=== PATIENT | male | born 1950 | race Caucasian/White ===

== ENCOUNTER 2019-06-29 07:10 | Outpatient (CLI) | payer MEDICARE, SELFPAY ==
--- NOTE | ~2019-06-29 | US_ITS ---
EXAMINATION: US carotid duplex BI DATE: 06/29/2019 08:38 INDICATION: Bilateral carotid bruits TECHNIQUE: Grayscale, color Doppler, and pulsed Doppler images of the cervical carotid arteries were obtained. The degree of vessel stenosis is placed in one of the following categories: normal, <50%, 5 0-69%, >=70% but less than near-occlusion, near-occlusion, or total occlusion. Note that percent sten osis relative to normal distal artery lumen diameter is indirectly measured from velocity measurement s as described by You, et al. Radiology 2003; 229:340-346. COMPARISON: 11/27/2018 FINDINGS: RIGHT: The right common carotid artery (CCA) peak systolic velocity (PSV) is 122 cm/s. The right internal ca rotid artery (ICA) PSV is 96 cm/s. The right ICA end-diastolic velocity (EDV) is 17 cm/s. The right I CA/CCA PSV ratio is 0.8. Grayscale and color Doppler images yield an estimate of <50% diameter reduct ion from plaque in the ICA. The external carotid artery (ECA) PSV is 111 cm/s. There is antegrade harman w in the right vertebral artery. LEFT: The left CCA PSV is 68 cm/s. The left ICA PSV is 93 cm/s. The left ICA EDV is 31 cm/s. The left ICA/C CA PSV ratio is 1.4. Grayscale and color Doppler images yield an estimate of <50% diameter reduction from plaque in the ICA. The ECA PSV is 99 cm/s. There is antegrade flow in the left vertebral artery. IMPRESSION: 1. <50% stenosis in the right internal carotid artery. 2. <50% stenosis in the left internal carotid artery. 3. Cardiac arrhythmia is present. Correlate with EKG. Reviewed, dictated and finalized at location A.
== END 2019-06-29 07:11 | disposition home or self-care (01) ==
PROVIDERS: PCP Family Medicine; Visit Provider Internal Medicine Cardiovascular Disease
DX: R09.89 Other specified symptoms and signs involving the circulatory and respiratory systems (principal); I65.23 Occlusion and stenosis of bilateral carotid arteries; I49.9 Cardiac arrhythmia, unspecified
CPT/HCPCS: 93880

== ENCOUNTER 2019-09-07 08:25 | Outpatient (CLI) | payer MEDICARE, SELFPAY ==
--- NOTE | ~2019-09-07 | CT_ITS ---
EXAMINATION: CT abdomen pelvis w con DATE: 09/07/2019 08:53 INDICATION: Left lower quadrant abdominal pain TECHNIQUE: Computed tomography (CT) of the abdomen and pelvis was performed with 100 mL Omnipaque-350 intravenous contrast. Automated exposure control and iterative reconstruction technique were employe d. The dose-length product was 845.58 mGy-cm. COMPARISON: None FINDINGS: Lung bases are clear. Heart size is normal. No pericardial or pleural effusion. Atherosclerotic coron kathryn artery calcifications. Median sternotomy which may be related to prior coronary artery bypass gra fting. Dense calcification along the aortic valve. Liver, gallbladder, spleen, left kidney and bilate ral adrenal glands are normal. 4 mm low-attenuation likely cyst which is too small to definitively ch aracterize at the lower pole of the right kidney. 2.3 cm centrally cystic lesion at the tail of the p ancreas with nonuniform density wall in places measuring up to 6 mm in thickness. Remainder of the pa ncreas is normal. There is marked diffuse colonic diverticulosis without adjacent inflammatory change to suggest diverticulitis. Normal appendix. 1 cm fat attenuation nodule within the lumen of the thir d portion of the duodenum which could represent either ingested material or small lipoma. Bladder is normal. Prostatomegaly. No free intraperitoneal gas or fluid. No pathologically enlarged abdominal or pelvic lymphadenopathy. There is calcified atherosclerosis of the aorta and many of the other arteri es. Mild lumbar dextrocurvature and 4 mm anterolisthesis L4 on L5. Moderate thoracolumbar spondylosis IMPRESSION: 1. 2.3 cm complex cystic lesion at the tail of the pancreas with thickened enhancing wall which is co ncerning for neoplasm. The differential diagnosis includes pseudocyst, intraductal papillary mucinous neoplasm (IPMN), mucinous cystic neoplasm (MCN), serous cystadenoma, neuroendocrine tumor and cystic degeneration of adenocarcinoma. Correlate for history of pancreatitis and would recommend further ev aluation with pancreatic protocol pre and postcontrast MRI. Dr. Coles discussed these findings wit juan daniel Pappas at 2:22 PM. 2. Extensive diverticulosis. 3. Prostatomegaly. Reviewed, dictated and finalized at location A. IMPRESSION: 1. 2.3 cm complex cystic lesion at the tail of the pancreas with thickened enha ncing wall which is concerning for neoplasm. The differential diagnosis include s pseudocyst, intraductal papillary mucinous neoplasm (IPMN), mucinous cystic n eoplasm (MCN), serous cystadenoma, neuroendocrine tumor and cystic degeneration of adenocarcinoma. Correlate for history of pancreatitis and would recommend f urther evaluation with pancreatic protocol pre and postcontrast MRI. Dr. Celaya rt discussed these findings with GRICEL Pappas at 2:22 PM. 2. Extensive diverticulosis. 3. Prostatomegaly.
[2019-09-07 08:46] LABS: Estimated Glomerular Filt Rate 55
== END 2019-09-07 08:26 | disposition home or self-care (01) ==
LOC: ANHIMG 08:29
PROVIDERS: PCP Family Medicine; Visit Provider Physician Assistant
DX: K57.30 Diverticulosis of large intestine without perforation or abscess without bleeding (principal); N40.0 Benign prostatic hyperplasia without lower urinary tract symptoms; K86.2 Cyst of pancreas
CPT/HCPCS: 36415; 74177; Q9967

== ENCOUNTER 2019-09-25 09:38 | Outpatient (CLI) | payer MEDICARE, SELFPAY ==
--- NOTE | ~2019-09-25 | MR_ITS ---
EXAMINATION: MR abdomen wo/w con INDICATION: Left upper quadrant pain, cystic pancreatic lesion on recent CT TECHNIQUE: Coronal SSFSE ARC, WATER:coronal LAVA-FLEX, Coronal 2D FIESTA FatSat, Axial SSFSE BH ARC, Axial 3D DualEcho BH, Axial SSFSE-IR, Axial DWI b=500, Axial 2D FIESTA FatSat, pre and dynamic postco ntrast Axial LAVA ARC, postcontrast Coronal In and Opposed phase LAVA FLEX COMPARISON: CT, 09/07/2019 CONTRAST: Multihance, 19 cc FINDINGS: The heart size is normal. The liver, spleen, gallbladder, and adrenal glands are normal. Th e kidneys are unremarkable. There is a 2.3 x 1.9 cm T1 hypointense, T2 hyperintense lesion in the sarthak l of the pancreas which demonstrate wall thickening with wall enhancement on postcontrast images. Com munication with the pancreatic duct is indeterminate. Pancreatic duct is normal in course and caliber . No definite associated restricted diffusion is identified. There are no pathologically enlarged abd ominal lymph nodes. No dilated loops of bowel are evident. IMPRESSION: 1. Cystic lesion of the pancreatic tail with differential as previously described. Given the lesion s ize and indeterminate relationship with the main pancreatic duct, recommend either six month follow-u p MRI without and with contrast or EUS/FNA. Reviewed, dictated and finalized at location B. IMPRESSION: 1. Cystic lesion of the pancreatic tail with differential as previously describ ed. Given the lesion size and indeterminate relationship with the main pancreat ic duct, recommend either six month follow-up MRI without and with contrast or EUS/FNA.
== END 2019-09-25 09:39 | disposition home or self-care (01) ==
LOC: ANHIMG 09:39
PROVIDERS: PCP Family Medicine; Visit Provider Physician Assistant
DX: K86.9 Disease of pancreas, unspecified (principal)
CPT/HCPCS: 74183; A9577

== ENCOUNTER 2022-03-03 10:12 | Outpatient (CLI) | payer MEDICARE, SELFPAY ==
[2022-03-03 10:40] LABS: Alanine Aminotransferase 29 U/L (6-50); Albumin Level 4.5 g/dL (3.5-5.1); Alkaline Phosphatase 104 U/L (38-126); Anion Gap 8 mmol/L (8-16); Aspartate Amino Transferase 39 U/L (17-59); Bilirubin,Total 0.8 mg/dL (0.2-1.3); Blood Urea Nitrogen 19 mg/dL (9-20); Calcium 9.1 mg/dL (8.4-10.2); Carbon Dioxide 27 mmol/L (22-30); Chloride 101 mmol/L (98-107); Estimated Glomerular Filt Rate > 60; Glucose 172 mg/dL (65-110); Potassium 4.2 mmol/L (3.4-5.0); Sodium 136 mmol/L (137-145)
== END 2022-03-03 10:13 | disposition home or self-care (01) ==
PROVIDERS: PCP Family Medicine; Visit Provider Internal Medicine Cardiovascular Disease
DX: I48.91 Unspecified atrial fibrillation (principal)
CPT/HCPCS: 36415; 80053; 84443

== ENCOUNTER 2022-04-24 12:35 | Outpatient (CLI) | payer MEDICARE, SELFPAY ==
--- NOTE | ~2022-04-24 | MR_ITS ---
EXAMINATION: MR brain/brain stem wo/w con DATE: 04/24/2022 13:33 INDICATION: Right lower extremity weakness. TECHNIQUE: Magnetic resonance imaging (MRI) of the brain and brainstem was performed without and with 17 mL MultiHance intravenous contrast. COMPARISON: Head CT 07/14/2010 FINDINGS: There is an acute infarct in the right frontoparietal region. There are scattered areas of nonspecific increased T2-weighted signal intensity in the cerebral white matter, which is within norm al limits for the patient's age. Overlying the left frontoparietal region, there is a 5.1 x 0.9 x 5.2 cm expansile lytic lesion in the skull, which measured 4.9 x 0.8 x 4.4 cm on 07/14/10. The mass is no nenhancing and demonstrates markedly increased T2-weighted signal intensity without complete suppress ion on FLAIR images. There is no intracranial hemorrhage. The ventricles are normal. The orbits are n ormal. There is mild mucosal thickening in left maxillary sinus. The mastoid air cells are normal. IMPRESSION: 1. Acute infarct in the right frontoparietal region. 2. Expansile lytic lesion in the left frontoparietal skull, stable from 07/14/2010, which may be an in tradiploic epidermoid cyst. Reviewed, dictated and finalized at location A. ARINE MAKER IMPRESSION: 1. Acute infarct in the right frontoparietal region. 2. 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
== END 2022-04-24 12:36 | disposition home or self-care (01) ==
PROVIDERS: PCP Family Medicine; Visit Provider Student in an Organized Health Care Education/Training Program
DX: R29.898 Other symptoms and signs involving the musculoskeletal system (principal)
CPT/HCPCS: 70553; A9577

== ENCOUNTER 2022-05-26 09:42 | Outpatient (CLI) | payer MEDICARE, SELFPAY ==
--- NOTE | 2022-05-26 11:00 | NEURO_ITS ---
Impression: Patient reports a history of bilateral hand shaking and right arm falling asleep. # Evidence of right ulnar neuropathy. # Normal needle/EMG exam. # Clinical correlation recommended. Motor Nerve Conduction Upper Extremities Median Nerve Conduction Velocity (m/sec) Terminal Latency (msec) Response Voltage(mV) Elbow-Wrist Wrist Elbow Wrist Right 52 3.0 4 5 Left 53 2.6 3 4 Ulnar Nerve Conduction Velocity (m/sec) Terminal Latency (msec) Response Voltage(mV) Above Elbow Below Elbow Wrist Above Elbow Below Elbow Wrist Right 46 47 2.3 5 5 7 Left 52 52 2.8 5 6 7 F-Wave Latency Median (ms) Ulnar (ms) Right 29.1 29.7 Left 29.6 30.1 Sensory Nerve Conduction Upper Extremities Median Nerve Stimulation Terminal Latency (msec) Wrist/Digit Response Voltage (uV) Wrist Right 3.3/3.6 19/28 Left 3.0/3.1 13/10 Ulnar Nerve Stimulation Terminal Latency (msec) Wrist/Digit Response Voltage (uV) Wrist Right 2.7 17 Left 2.8 20 Radial Nerve Terminal Latency (msec) Response Voltage(mV) Right 2.0 23 Left 1.9 10 Left Right Muscles Examined Fibrillation Fasciculation Scarcity Voltage Duration Left Right Left Right Left Right Left Right Left Right Deltoid Biceps X X Brachioradialis Triceps X X Pronator Teres X X Ext Indicis X X Ext Digitorum X X Abd Poll Brev X X 1st Dorsal Interosseus Abd Dig Min MTDD
== END 2022-05-26 09:43 | disposition home or self-care (01) ==
PROVIDERS: PCP Family Medicine; Visit Provider Student in an Organized Health Care Education/Training Program
DX: G56.00 Carpal tunnel syndrome, unspecified upper limb (principal); R94.131 Abnormal electromyogram [EMG]
CPT/HCPCS: 95886; 95911

== ENCOUNTER 2022-06-02 09:53 | Outpatient (CLI) | payer MEDICARE, SELFPAY ==
[2022-06-02 10:40] LABS: LDL Cholesterol Direct 45 mg/dL
== END 2022-06-02 09:54 | disposition home or self-care (01) ==
PROVIDERS: PCP Family Medicine; Visit Provider Student in an Organized Health Care Education/Training Program
DX: I63.9 Cerebral infarction, unspecified (principal)
CPT/HCPCS: 36415; 83036; 83721

== ENCOUNTER 2022-06-13 08:50 | Outpatient (CLI) | payer MEDICARE, SELFPAY ==
--- NOTE | ~2022-06-13 | MR_ITS ---
EXAMINATION: MRA brain wo con DATE: 06/13/2022 09:34 INDICATION: Stroke TECHNIQUE: Magnetic resonance angiography (MRA) of the brain was performed without intravenous contrast by the 3 D [id number] technique. COMPARISON: None. FINDINGS: There is normal flow related signal seen within the vertebral, basilar and internal carotid arteries. There is no proximal stenosis. There are no aneurysms identified. Both A1 and P1 segments are pat ent. The right A1 segment is significantly smaller both the left A1 segment and a patent anterior com municating artery. There is also a patent left posterior communicating artery. Flow in the cerebral a rteries is symmetric. IMPRESSION: 1. Normal anatomic variation to the [place] as detailed above. No hemodynamically significan t stenosis or aneurysm. Reviewed, dictated and finalized at location A. IMPRESSION: 1. Normal anatomic variation to the [place] as detailed above. No hemo dynamically significant stenosis or aneurysm.
== END 2022-06-13 08:51 | disposition home or self-care (01) ==
PROVIDERS: PCP Family Medicine; Visit Provider Student in an Organized Health Care Education/Training Program
DX: I63.9 Cerebral infarction, unspecified (principal)
CPT/HCPCS: 70544

== ENCOUNTER 2022-06-16 08:30 | Outpatient (RCR) | payer MEDICARE, SELFPAY ==
[2022-03-26 12:00] VITALS: PULSE 86
== END 2022-06-17 10:24 | disposition home or self-care (01) ==
LOC: ANHCPREHAB 08:30
PROVIDERS: PCP Family Medicine; Visit Provider Internal Medicine Cardiovascular Disease
DX: Z95.2 Presence of prosthetic heart valve (principal)
CPT/HCPCS: 93798

== ENCOUNTER 2022-06-29 09:37 | Outpatient (CLI) | payer MEDICARE, SELFPAY ==
--- NOTE | 2022-06-29 09:45 | ECHO_ITS ---
Patient Info Name: Chadd Rodriguez Age: 71 years : 1950 Gender: Male Ht: 69 in Wt: 192 lbs BSA: 2.08 m2 HR: 79 bpm BP: 125 / 90 mmHg Technical Quality: Fair Exam Date: 06/29/2022 9:59 AM Exam [facility] Patient Status: Outpatient Admit Date: 06/29/2022 Staff Ordering Physician: Anaya Bhatt MD Project Development Coordinator: Julieta Pearson RDCS Attending Provider: Anaya Bhatt MD Referring Physician: En Hagen MD; Exam Type: CA echo dop bubble study w con Study Info Indications I63.9 - CEREBRAL INFARCTION, UNSPECIFIED Contrast/Agitated Saline Contrast/Ag. Saline: Agitated Saline Amount: 4.00 ml Administered By: Julieta Pearson RDCS New IV Access: Dorsum of Hand and Right Site Condition: No extravasation, Site dressing applied and IV removed Contrast/Ag. Saline: Agitated Saline Amount: 20.00 ml Administered By: Sabiha Collins RDCS Existing IV Access: Yes Summary 1. Left ventricular chamber dimension is normal. 2. Left ventricular systolic function is mildly reduced, estimated at 45-50%. 3. There is moderately increased left ventricular wall thickness. 4. Left ventricular septal wall motion is abnormal with septal motion related to bundle branch block. 5. Right ventricular systolic function is normal. 6. Intact interatrial septum visualized by color flow and agitated saline imaging. Negative bubble study. 7. Well seated TAVR valve. Mean gradient 7mmHg. No aortic regurgitation. 8. The mitral valve has thickened leaflets. 9. The mitral valve annulus is mildly calcified. 10. There is trace mitral valve regurgitation. 11. There is trace tricuspid valve regurgitation. Left Ventricle Left ventricular chamber dimension is normal. Left ventricular systolic function is mildly reduced, estimated at 45-50%. There is moderately increased left ventricular wall thickness. Left ventricular septal wall motion is abnormal with septal motion related to bundle branch block. Right Ventricle Right ventricular chamber dimension is normal. Right ventricular systolic function is normal. Left Atria Left atrial chamber dimension is normal. Right Atria Right atrial chamber dimension is normal. Atrial Septum Intact interatrial septum visualized by color flow and agitated saline imaging. Negative bubble study. Aortic Valve Well seated TAVR valve. Mean gradient 7mmHg. No aortic regurgitation. Pulmonic Valve The pulmonic valve is not well visualized. Mitral Valve The mitral valve has thickened leaflets. There is trace mitral valve regurgitation. The mitral valve annulus is mildly calcified. Tricuspid Valve There is trace tricuspid valve regurgitation. Pericardium/Pleural There is no pericardial effusion. Inferior Vena Cava Normal inferior vena cava with >50% collapse upon inspiration consistent with normal right atrial pressure, 3 mmHg. Aorta The aortic root size at the sinus of Valsalva is normal. Left Ventricular Outflow Tract Name Value Normal LVOT 2D LVOT Diameter 2.0 cm LVOT Doppler LVOT Peak Gradient 4 mmHg LVOT Mean Gradient 3 mmHg
--- NOTE | 2022-06-29 09:50 | ECG_ITS ---
Measurements Intervals [place] Rate: 84 P: HI: 0 QRS: -54 QRSD: 164 T: -14 QT: 441 QTc: 524 Interpretive Statements ATRIAL FLUTTER/TACHYCARDIA RIGHT BUNDLE BRANCH BLOCK LEFT ANTERIOR FASCICULAR BLOCK VOLTAGE CRITERIA FOR LVH BASELINE ARTIFACT- I, II, III, AVR, AVL, AVF ABNORMAL ECG NO PREVIOUS ECG AVAILABLE FOR COMPARISON Electronically Signed On 06-29-2022 11:23:41 CDT by Philip Zheng D.O.
[2022-06-29] MEDS: PERFLUTREN LIPID MICROSPHERES 1.5 ML VIAL DILUTED TO 10 ML TOTAL VOLUME IV PUSH (11:00)
== END 2022-06-29 09:38 | disposition home or self-care (01) ==
PROVIDERS: PCP Family Medicine; Referring Provider Internal Medicine Cardiovascular Disease; Visit Provider Student in an Organized Health Care Education/Training Program
DX: I63.9 Cerebral infarction, unspecified (principal); I45.10 Unspecified right bundle-branch block; I44.4 Left anterior fascicular block
CPT/HCPCS: 93005; 96375; C8929; Q9957

== ENCOUNTER 2022-08-10 10:16 | Outpatient (CLI) | payer MEDICARE, SELFPAY ==
[2022-08-10 10:44] LABS: Alanine Aminotransferase 70 U/L (6-50); Albumin Level 3.9 g/dL (3.5-5.1); Alkaline Phosphatase 114 U/L (38-126); Anion Gap 7 mmol/L (8-16); Aspartate Amino Transferase 66 U/L (17-59); Bilirubin,Total 0.7 mg/dL (0.2-1.3); Blood Urea Nitrogen 21 mg/dL (9-20); Calcium 8.6 mg/dL (8.4-10.2); Carbon Dioxide 31 mmol/L (22-30); Chloride 100 mmol/L (98-107); Estimated Glomerular Filt Rate > 60; Glucose 170 mg/dL (65-110); Potassium 4.4 mmol/L (3.4-5.0); Sodium 138 mmol/L (137-145)
== END 2022-08-10 10:17 | disposition home or self-care (01) ==
PROVIDERS: PCP Family Medicine; Visit Provider Physician Assistant
DX: E87.5 Hyperkalemia (principal)
CPT/HCPCS: 36415; 80053

== ENCOUNTER 2022-08-23 13:47 | Outpatient (CLI) | payer MEDICARE, SELFPAY ==
--- NOTE | 2022-08-23 15:42 | WPDPFTINT ---
PFT Procedure Performed PFT Procedure Performed Plethysmography (Lung Vol) Diffusing Cap (DLCO) Flow Vol Loop Spirometry w/o Bronchodil PFT Interpretation This is a pulmonary function test with spirometry, plethysmography and diffusing capacity. The test was performed and results interpreted in accordance with the 2019 and 2005 ATS/ERS Task Force guidelines respectively using the Global Lung Function Initiative-2012 reference equations. Patient demonstrated good effort and cooperation. Reproducibility criteria were met. The quality of the spirometry maneuver was Grade A. Findings: Spirometry: The contour the inspiratory and expiratory flow tracing are normal. FVC is 3.32 L, 83% predicted. The FEV1 is 2.70 L, 90% predicted. The FEV1: FVC ratio is 81%. Plethysmography: The total lung capacity is 5.98 L, 88% predicted. The functional residual capacity is 3.03 L, 83% predicted. The residual volume is 2.66 L, 108% predicted. Diffusion capacity: The diffusing capacity unadjusted for hemoglobin and carboxyhemoglobin is 22.9, 91% predicted. Diffusing capacity adjusted for alveolar volume is 4.52, 116% predicted. Impression: The spirometry is normal without evidence of an obstructive abnormality. The lung volumes are normal. The diffusing capacity is normal. There are no prior studies for comparison
== END 2022-08-23 13:48 | disposition home or self-care (01) ==
PROVIDERS: PCP Family Medicine; Visit Provider Internal Medicine Cardiovascular Disease
DX: Z79.899 Other long term (current) drug therapy (principal)
CPT/HCPCS: 94375; 94726; 94729

== ENCOUNTER 2022-12-06 20:17 | Emergency (ER) | payer MEDICARE, SELFPAY ==
[2022-12-06] VITALS (18 sets, daily range): BP systolic 129–172; BP diastolic 69–88; PULSE 42–94; RESP 12–22; TEMP 36.3–36.5; O2SAT 96–99
--- NOTE | ~2022-12-06 | XR_ITS ---
EXAMINATION: XR chest 1V portable Exam Date/Time: 12/06/2022 20:29 CDT HISTORY: syncope/HX OF CHF Comparison: 09/22/2015. RESULT: Lines, tubes, and devices: Valve replacement. Intact sternotomy wires. Lungs and pleura: Clear. Cardiomediastinal silhouette: Stable. Other: No acute osseous or upper abdominal finding. IMPRESSION: No acute cardiopulmonary process. Reviewed, dictated and finalized at location K.
--- NOTE | 2022-12-06 20:22 | ECG_ITS ---
Measurements Intervals [place] Rate: 48 P: NE: 0 QRS: -45 QRSD: 152 T: -25 QT: 480 QTc: 432 Interpretive Statements ATRIAL FLUTTER/TACHYCARDIA WITH SLOW VENTRICULAR RESPONSE LEFT AXIS DEVIATION [QRS AXIS < -30] RIGHT BUNDLE BRANCH BLOCK [120+ ms QRS DURATION, UPRIGHT V1, 40+ ms S IN I/aVL/V4/V5/V6] VOLTAGE CRITERIA FOR LVH [MEETS CRITERIA IN ONE OF: R(aVL), S(V1), R(V5), R(V5/V6)+S(V1)] ABNORMAL ECG Electronically Signed On 12-08-2022 10:26:16 CDT by Nolan Baxter M.D.
[2022-12-06] MEDS: LACTATED RINGERS 1,000 ML 999 ML IV CONT (20:25)
--- NOTE | 2022-12-06 20:28 | ED.SYNCOPE ---
HPI - Syncope General Chief Complaint: Syncope Stated Complaint: Syncope Time Seen by Provider: 12/06/22 20:20 Source: patient Mode of arrival: EMS Limitations: no limitations History of Present Illness HPI narrative: 72 year old male arrives to the Emergency Department via EMS. Patient states he was watching his grandchildren today and felt like maybe his blood sugar was low. States went to kitchen and had a syncopal episode. Denies any chest pain, shortness of breath or palpitations associated with. States again tonight he was feeling like maybe his blood sugar was low. He experienced near syncope. Again, he had no chest pain, shortness of breath or palpitations. He has no headache. He states he has a lot of nausea and vomiting since starting Ozempic a month ago. He has a history of chronic atrial fib /flutter. He takes Diltiazem and Metoprolol. He takes metformin, jardiance, Ozempic, Novalog and Lantus insulins. He is on eliquis. 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) -: second(s) Prodromal symptoms: lightheaded Injuries sustained associated with event: none Current symptoms: other (shaky) History: other (aortic valve replacement, atrial fib/flutter) Treatments prior to arrival: none Related Data Home Medications Medication Instructions Recorded Confirmed aspirin 81 mg tablet,delayed 81 mg PO DAILY 03/15/19 12/06/22 release (Aspir-) ezetimibe 10 mg tablet (Zetia) 10 mg PO DAILY 03/15/19 12/06/22 uabbrtgy-mqxvgamq-dngqd acid 400 1 tablet PO DAILY 12/26/19 12/06/22 mcg-vit K 20 mcg-lycop 300 mcg tablet (One-A-Day Men's Multivitamin) cholecalciferol (vitamin D3) 50 50 mcg PO DAILY 08/28/20 12/06/22 mcg (2,000 unit) capsule (D3-2000) docusate sodium 100 mg capsule 100 mg PO DAILY 08/28/20 12/06/22 (Colace) mecobalamin (vitamin B12) 1,000 1,000 mcg PO DAILY 08/28/20 12/06/22 mcg chewable tablet (B12 Active) metoprolol succinate 100 mg 100 mg PO DAILY 07/29/22 12/06/22 tablet,extended release 24 hr (Toprol XL) apixaban 5 mg tablet (Eliquis) 10 mg PO BID 09/29/22 12/06/22 atorvastatin 80 mg tablet (Lipitor) See Rx Instructions .Route .COMPLEX 12/06/22 12/06/22 diltiazem HCl 180 mg capsule,24 360 mg PO DAILY 12/06/22 12/06/22 hr,extended release insulin glargine 100 unit/mL (3 22 unit subcut QPM 12/06/22 12/06/22 mL) subcutaneous pen (Lantus Solostar U-100 Insulin) sertraline 25 mg tablet (Zoloft) See Rx Instructions .Route .COMPLEX 12/06/22 12/06/22 Allergies Allergy/AdvReac Type Severity Reaction Status Date / Time contrast dye AdvReac Unknown Nausea Uncoded 12/06/22 21:10 Review of Systems Review of Systems: All systems reviewed & are unremarkable except as noted in HPI and below Constitutional: Constitutional: Reports as per HPI, Denies chills, Denies fever(s) and Reports weakness Eyes: Eyes: Reports as per HPI and Denies change in vision ENT: Reports system reviewed and no additional complaints, except as documented Cardiovascular: Cardiovascular: Reports as per HPI, Denies chest pain and Denies rapid heart rate Respiratory: Respiratory: Reports as per HPI, Denies cough and Denies dyspnea Gastrointestinal: Gastrointestinal: Reports as per HPI, Denies abdominal pain, Reports diarrhea, Reports nausea and Reports vomiting Genitourinary: Genitourinary: Reports no additional male genitourinary complaints, Denies dysuria and Denies urinary frequency Musculoskeletal: Musculoskeletal: Reports no additional musculoskeletal complaints Integumentary/Breasts: Skin/Breast: Reports system reviewed and no additional complaints, except as docu Neurologic: Reports system reviewed and no additional complaints, except as documented, Denies confusion, Reports syncope, Denies headache(s), Denies focal weakness, Denies numbness and Denies weakness Comments: feels shaky Psychiatric: Psychiatric: Reports no additional psych
[2022-12-06 20:37] LABS: Basophils Absolute Auto 0.06 K/mm3 (0.00-0.10); Basophils Percent Auto 0.5 % (0.0-1.0); Eosinophils Absolute Auto 0.18 K/mm3 (0.02-0.50); Eosinophils Percent Auto 1.4 % (1.0-6.0); Hematocrit 43.7 % (37.0-46.0); Hemoglobin 14.1 g/dL (12.4-15.3); Immature Granulocyte Absolute 0.06 K/mm3 (0.00-0.00); Immature Granulocyte Percent A 0.5 % (0.0-0.0); Lymphocytes Absolute Auto 4.49 K/mm3 (1.10-4.50); Lymphocytes Percent Auto 35.6 % (18.0-42.0); Mean Corpuscular HGB Conc 32.3 g/dL (32.0-36.0); Mean Corpuscular Hemoglobin 29.5 pg (27.0-31.0); Mean Corpuscular Volume 91.4 fL (78.0-102.0); Mean Platelet Volume 10.7 fl (8.7-11.0); Monocytes Absolute Auto 1.22 K/mm3 (0.10-0.90); Monocytes Percent Auto 9.7 % (2.0-11.0); Neutrophils Absolute Auto 6.6 K/mm3 (1.7-7.2); Neutrophils Percent Auto 52.3 % (50.0-70.0); Platelet Count Result 361 K/mm3 (150-420); Red Blood Count 4.78 M/mm3 (4.70-6.10); Red Cell Distribution Width 16.5 % (11.6-14.4); White Blood Count 12.6 K/mm3 (4.8-10.8)
[2022-12-06 20:56] LABS: Alanine Aminotransferase 47 U/L (16-63); Albumin Level 3.2 g/dL (3.4-5.0); Alkaline Phosphatase 97 U/L (46-116); Anion Gap 12 mmol/L (8-16); Aspartate Amino Transferase 28 U/L (15-37); Bilirubin,Total 0.4 mg/dL (0.00-1.00); Blood Urea Nitrogen 18 mg/dL (7-18); Carbon Dioxide 26 mmol/L (21-32); Chloride 104 mmol/L (98-108); Estimated Glomerular Filt Rate > 60; Glucose 84 mg/dL (70-99); Magnesium 1.4 mg/dL (1.8-2.4); Osmolality Calculated 294 mOsm/kg (285-295); Potassium 5.1 mmol/L (3.5-5.1); Sodium 142 mmol/L (136-145); Total Protein 6.9 g/dL (6.4-8.2); Troponin I 14.3 ng/L (0.00-60.4)
[2022-12-06 20:58] LABS: Lactic Acid Reflex 3.9 mmol/L (0.4-2.0)
[2022-12-06 23:03] LABS: Appearance Urine Clear (Clear); Bilirubin Urine Negative (Negative); Blood Urine Negative (Negative); Color Urine Yellow (Yellow); Glucose Urine UA 3+ (Negative); Ketones Urine Negative (Negative); Leukocyte Esterase Ur Negative (Negative); Nitrate Urine Negative (Negative); Protein Urine Negative (Negative); pH Urine 7.5 (5.0-8.0)
[2022-12-06 23:08] LABS: Add Urine Microscopic? YES; Bacteria Urine Trace /hpf; RBC Urine 0-2 /hpf (0-2); Squamous Epithelial Cell Urine Occasional /hpf (Few); WBC Urine 0-3 /hpf (0-3)
[2022-12-06 23:09] LABS: Mucus Urine Rare /lpf
[2022-12-06 23:39] LABS: Reflex Lactic Acid Yes or No Add Lactic
== END 2022-12-06 23:23 | disposition short-term general hospital (02) ==
PROVIDERS: Emergency Provider Emergency Medicine; PCP Family Medicine
DX: R55 Syncope and collapse (principal); I48.20 Chronic atrial fibrillation, unspecified; I48.92 Unspecified atrial flutter; R74.02 Elevation of levels of lactic acid dehydrogenase [LDH]; I25.10 Atherosclerotic heart disease of native coronary artery without angina pectoris; I11.9 Hypertensive heart disease without heart failure; G47.33 Obstructive sleep apnea (adult) (pediatric); E78.00 Pure hypercholesterolemia, unspecified; E11.9 Type 2 diabetes mellitus without complications; Z95.4 Presence of other heart-valve replacement; Z86.73 Personal history of transient ischemic attack (TIA), and cerebral infarction without residual deficits; Z79.82 Long term (current) use of aspirin; Z79.01 Long term (current) use of anticoagulants; Z79.4 Long term (current) use of insulin; Z95.1 Presence of aortocoronary bypass graft; Z87.891 Personal history of nicotine dependence; Z79.85 Long-term (current) use of injectable non-insulin antidiabetic drugs; Z79.84 Long term (current) use of oral hypoglycemic drugs
CPT/HCPCS: 36415; 71045; 80053; 81001; 83605; 83735; 84484; 85025; 93005; 96360; 96361; 99285; J7120

== ENCOUNTER 2022-12-06 23:58 | Inpatient (IN) | payer MEDICARE, SELFPAY ==
--- NOTE | ~2022-12-06 | US_ITS ---
EXAMINATION: US carotid duplex BI DATE: 12/07/2022 10:47 INDICATION: Syncope. TECHNIQUE: Grayscale, color Doppler, and pulsed Doppler images of the cervical carotid arteries were obtained. The degree of vessel stenosis is placed in one of the following categories: normal, <50%, 5 0-69%, >=70% but less than near-occlusion, near-occlusion, or total occlusion. Note that percent sten osis relative to normal distal artery lumen diameter is indirectly measured from velocity measurement s as described by You, et al. Radiology 2003; 229:340-346. COMPARISON: Ultrasound 06/29/2019 FINDINGS: RIGHT: The right common carotid artery (CCA) peak systolic velocity (PSV) is 119 cm/s. The right internal ca rotid artery (ICA) PSV is 69 cm/s. The right ICA end-diastolic velocity (EDV) is 21 cm/s. The right I CA/CCA PSV ratio is 0.6. Grayscale and color Doppler images yield an estimate of <50% diameter reduct ion from plaque in the ICA. There is antegrade flow in the right vertebral artery. LEFT: The left CCA PSV is 68 cm/s. The left ICA PSV is 88 cm/s. The left ICA EDV is 27 cm/s. The left ICA/C CA PSV ratio is 1.3. Grayscale and color Doppler images yield an estimate of <50% diameter reduction from plaque in the ICA. There is antegrade flow in the left vertebral artery. IMPRESSION: 1. <50% stenosis in the right internal carotid artery. 2. <50% stenosis in the left internal carotid artery. Reviewed, dictated and finalized at location A.
--- NOTE | ~2022-12-06 | XR_ITS ---
EXAMINATION: XR chest 1V portable DATE: 12/13/2022 15:51 INDICATION: Pacer placement. TECHNIQUE: A single frontal view of the chest was obtained. COMPARISON: Chest single view 12/06/2022 FINDINGS: There is no pneumonia, pleural effusion, or pneumothorax. The heart size is normal. There a re changes of aortic valve replacement. Median sternotomy wires and mediastinal surgical clips are se en, likely from prior coronary artery bypass grafting. There is a left chest pacer with lead in right ventricle. IMPRESSION: 1. No acute cardiopulmonary disease. Reviewed, dictated and finalized at location E.
--- NOTE | ~2022-12-06 | XR_ITS ---
EXAMINATION: XR chest 2V DATE: 12/14/2022 15:28 INDICATION: Pacer placement. TECHNIQUE: Frontal and lateral views of the chest were obtained. COMPARISON: Chest single view 12/13/2022 FINDINGS: There is no pneumonia, pleural effusion, or pneumothorax. The heart size is normal. There a re changes of aortic valve replacement. Median sternotomy wires and mediastinal surgical clips are se en, likely from prior coronary artery bypass grafting. There is a left chest pacer with lead in right ventricle. IMPRESSION: 1. No acute cardiopulmonary disease. Reviewed, dictated and finalized at location E.
--- NOTE | ~2022-12-06 | US_ITS ---
EXAMINATION: US right upper quadrant DATE: 12/12/2022 08:25 INDICATION: Abnormal liver function tests. TECHNIQUE: Multiple grayscale and Doppler ultrasound images of the abdomen were obtained. COMPARISON: Abdomen MRI 09/25/2019 FINDINGS: The pancreas is obscured by bowel gas. The liver is normal without focal lesion. There is n ormal flow in main portal vein. The gallbladder is normal in size. No gallstones or gallbladder wall thickening. There was no sonographic Leo sign. The common duct is normal and measures 2 mm. Right kidney is normal. IMPRESSION: 1. Normal right upper quadrant ultrasound. Reviewed, dictated and finalized at location E.
--- NOTE | 2022-12-06 23:59 | PM.IMHP ---
H&P: HPI History of Present Illness Date/Time: 12/07/22 00:47 Chief Complaint: patient brought to the ER for evaluation by EMS after a syncopal episode Narrative: Very pleasant 72 years old white male with prior history of CAD and aortic valve replacement with chronic medical issues, was watching his grandchildren play earlier today and he felt like his blood sugar was low. He felt weak and tired, went to the kitchen and had a syncopal episode. He denies hitting his head. He denies any chest pain, shortness or breath or palpitations associated with that episode. Tonight again he was feeling like his blood sugar was low. He checked his blood sugar which was within normal range. He complains of nausea and vomiting since he started Ozempic a month ago for diabetes. Went to the ER for evaluation in [facility]. 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 Review of Systems Review of Systems: he denies any palpitations, fever rigor chills, loss of consciousness, abdominal pain or blurred vision All systems reviewed & are unremarkable except as noted in HPI and below PMFSH Past Medical History Medical History (Updated 12/07/22 @ 01:59 by Gerald Diallo MD) A-fib Arthralgia Atrial fibrillation/flutter Coronary artery disease involving [place] coronary artery of [place] heart Episode of syncope Hyperkalemia Hypertensive heart disease without congestive heart failure Insomnia LLQ abdominal pain Neuroendocrine tumor of pancreas Nonrheumatic aortic (valve) stenosis Obstructive sleep apnea, adult Pancreatic lesion Pure hypercholesterolemia Stroke Tinea cruris Tremor Type 2 diabetes mellitus with hyperglycemia Surgical History Surgical History H/O splenectomy History of partial pancreatectomy Hx of CABG S/P TAVR (transcatheter aortic valve replacement) 01/28/22 Family History Family History Sibling Family history of malignant neoplasm Family history of coronary artery disease Mother Family history of diabetes mellitus in first degree relative Father Family history of coronary artery disease Social History Social History Smoking packs per day: 0.5 Smoking cigarettes per day: 10.0 Years smoked: 1 Smoking pack-years: 0.50 Smoking status: Former smoker Tobacco type: cigarettes Second hand tobacco smoke exposure: Yes Smoking end date: 02/29/08 Alcohol intake: current Drinks per week: 1 Alcohol use details: likes a glass of wine Substance use: never Substance use type: does not use Lack of Transportation: No Lack of Food: Never True Current Housing: I Have Housing Concerned About Future Housing: No Difficulty Paying Gas/Electric Bills: No Difficulty Paying for Meds: No Currently Unemployed: No Education: Decline to Answer Difficulty w/ Childcare or Family Care: No Living arrangements: with family Occupation/Education: retired Gender identity (if verbalized by the patient): Male Sexual Orientation (if Verbalized by the Patient): Straight or Heterosexual Spiritual care concerns: No Meds Home Medications and Allergies Home Medications Medication Instructions Recorded Confirmed Type aspirin 81 mg tablet,delayed 81 mg PO DAILY 03/15/19 12/07/22 History release (Aspir-) ezetimibe 10 mg tablet (Zetia) 10 mg PO DAILY 03/15/19 12/07/22 History lancets 30 gauge (OneTouch Delica #100 ea 05/29/19 12/07/22 Rx Lancets) vkiaieme-sduaertt-xapoz acid 400 1 tablet PO DAILY 12/26/19 12/07/22 History mcg-vit K 20 mcg-lycop 300 mcg tablet (One-A-Day Men's Multivitamin) cholecalciferol (vitamin D3) 50 50 mcg PO DAILY 08/28/20 12/07/22 History mcg (2,000 unit) capsule (D3-1999)
[2022-12-07] VITALS (13 sets, daily range): BP systolic 122–145; BP diastolic 66–83; PULSE 40–97; RESP 12–20; TEMP 36–36.6; O2SAT 95–98; BMI 28.0
--- NOTE | 2022-12-07 | ECHO_ITS ---
Patient Info Name: Chadd Rodriguez Age: 72 years : 1950 Gender: Male Ht: 69 in Wt: 190 lbs BSA: 2.07 m2 HR: 86 bpm BP: 145 / 76 mmHg Heart Rhythm: Sinus Rhythm Technical Quality: Fair Exam Date: 12/07/2022 1:49 PM Exam Location: [facility] Patient Status: Outpatient Admit Date: 12/06/2022 Staff Ordering Physician: Smiley Rankin DO Midwife: Fannie Mccain RDCS Attending Provider: Gerald Diallo MD Referring Physician: Massiel FISHER; Exam Type: CA echo dop color flow w con Study Info Indications R55 - Syncope and collapse Complete two-dimensional, color flow and Doppler transthoracic echocardiogram is performed with contrast to opacify the left ventricle and to improve the deliniation of the left ventricle endocardial borders. Contrast/Agitated Saline Contrast/Ag. Saline: Definity Amount: 2.00 ml Administered By: Fannie Mccain RDCS Existing IV Access: Yes IV Access Condition: patent with no signs of infiltration Summary 1. Left ventricular systolic function is low normal, estimated at 50-55%. 2. Left ventricular chamber dimension is normal. 3. There is mildly increased left ventricular wall thickness. 4. The left ventricular diastolic function is normal. 5. Left atrial chamber dimension is mildly enlarged. 6. There is mild prosthetic aortic valve stenosis with a peak velocity of 208.97 cm/s, mean gradient of 10 mmHg, and aortic valve area of 1.26 cm2. 7. There is trace regurgitation of the prosthetic aortic valve. 8. The mitral valve annulus is mildly calcified. 9. The mitral valve has thickened leaflets. 10. There is mild tricuspid valve regurgitation. 11. There is mild pulmonic regurgitation. Left Ventricle Left ventricular systolic function is low normal, estimated at 50-55%. Left ventricular chamber dimension is normal. There is mildly increased left ventricular wall thickness. The left ventricular diastolic function is normal. Right Ventricle Right ventricular chamber dimension is normal. Right ventricular systolic function is normal. Left Atria Left atrial chamber dimension is mildly enlarged. Right Atria Right atrial chamber dimension is normal. Atrial Septum Intact interatrial septum visualized by color flow imaging. 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 There is trace regurgitation of the prosthetic aortic valve. Pulmonic Valve The pulmonic valve is normal. There is no pulmonic valve stenosis. There is mild pulmonic regurgitation. Mitral Valve The mitral valve has thickened leaflets. There is no mitral valve stenosis. There is trace mitral valve regurgitation. The mitral valve annulus is mildly calcified. Tricuspid Valve The tricuspid valve leaflets are normal. There is no significant tricuspid valve stenosis. There is mild tricuspid valve regurgitation. No pulmonary hypertension, estimated pulmonary arterial systolic pressure is 20 mmHg. Pericardium/Pleural The pericardium appears normal. There is no pericardial effusion. Inferior Vena Cava Normal inferior vena cava with >50% collapse upon inspiration consistent with normal right atrial pressure, 10 mmHg. Aorta The aortic root size at the sinus of Valsalva is normal. Left Ventricular Outflow Tract Name Value Normal
--- NOTE | 2022-12-07 00:30 | ADMGEN ---
0000: This patient, Chadd Rodriguez, was admitted to IMU Room 203-01. Patient/family oriented to hospital policies and general routines including ID bracelet, bed and alarms, visiting hours, pain management, procedures, bathroom and other care routines, personal items, smoking policy, room service/diet, and visiting hours. Information on how to activate the Rapid Response Team has been discussed. Patient/Family are encouraged to report perceived risks to care and to ask questions if they do not understand what they are told or what they should do.
[2022-12-07 00:38] LABS: Glucose Point of Care 152 mg/dl (65-105)
[2022-12-07] MEDS: SODIUM CHLORIDE 0.9% IV 1,000 ML 75 ML IV CONT (04:35)
[2022-12-07 05:28] LABS: Basophils Absolute Auto 0.1 K/mm3 (0.0-0.1); Basophils Percent Auto 0.5 % (0.2-1.2); Eosinophils Absolute Auto 0.1 K/mm3 (0-0.3); Eosinophils Percent Auto 1.2 % (0-4.4); Hematocrit 41.3 % (42.0-52.0); Hemoglobin 13.7 g/dL (14.0-18.0); Immature Granulocyte Absolute 0.06 K/mm3 (0.00-0.031); Immature Granulocyte Percent A 0.5 % (0-0.5); Lymphocytes Absolute Auto 3.84 K/mm3 (0.9-3.2); Lymphocytes Percent Auto 32.7 % (18.3-44.2); Mean Corpuscular HGB Conc 33.2 g/dl (32-36); Mean Corpuscular Hemoglobin 29.8 pg (26-34); Mean Platelet Volume 10.9 fl (7.4-10.4); Monocytes Absolute Auto 1.2 K/mm3 (0.1-0.6); Monocytes Percent Auto 10.2 % (2.6-8.5); Neutrophils Absolute Auto 6.4 K/mm3 (1.3-6.7); Neutrophils Percent Auto 54.9 % (45.5-73.1); Nucleated Red Blood Cells Perc 0.2 % (0.0-0.2); Platelet Count Result 331 k/mm3 (150-375); Red Blood Count 4.59 M/mm3 (4.6-6.20); Red Cell Distribution Width 16.5 % (11.5-14.5); White Blood Count 11.7 K/mm3 (4.5-10.0)
[2022-12-07 05:43] LABS: Anion Gap 4 mmol/L (8-16); Blood Urea Nitrogen 13 mg/dL (9-20); Calcium 8.5 mg/dL (8.4-10.2); Carbon Dioxide 30 mmol/L (22-30); Chloride 103 mmol/L (98-107); Estimated CRCL calculation 80 ml/min; Estimated Glomerular Filt Rate > 60; Glucose 111 mg/dL (65-110); Magnesium 1.5 mg/dL (1.6-2.3); Phosphorus 3.9 mg/dL (2.5-4.5); Potassium 4.2 mmol/L (3.4-5.0); Sodium 137 mmol/L (137-145)
[2022-12-07 05:53] LABS: Troponin I 0.017 ng/mL (0.000-0.034)
[2022-12-07 08:17] LABS: Glucose Point of Care 133 mg/dl (65-105)
--- NOTE | 2022-12-07 08:34 | PM.IMPN ---
Progress Note: A&P Assessment and Plan (1) Episode of syncope: Code(s): R55 - Syncope and collapse Status: Acute Assessment and Plan: Monitor telemetry, check TSH, B12 PT/OT Check orthostatics Check echo (2) Type 2 diabetes mellitus with hyperglycemia: Code(s): E11.65 - Type 2 diabetes mellitus with hyperglycemia Status: Acute Assessment and Plan: Accu-Cheks, sliding scale insulin, check A1c (3) Coronary artery disease involving [place] coronary artery of [place] heart: Code(s): I25.10 - Atherosclerotic heart disease of [place] coronary artery without angina pectoris Status: Acute Assessment and Plan: Continue home medications (4) S/P TAVR (transcatheter aortic valve replacement): Code(s): Z95.2 - Presence of prosthetic heart valve Status: Acute Assessment and Plan: Currently on Eliquis (5) A-fib: Code(s): I48.91 - Unspecified atrial fibrillation Status: Acute Assessment and Plan: Rate controlled, continue Eliquis (6) Hypomagnesemia: Code(s): E83.42 - Hypomagnesemia Status: Acute Assessment and Plan: Replete and recheck Plan DVT prophylaxis with eliquis GI prophylaxis not indicated Code status full code Subjective Date/time seen: 12/07/22 08:34 Interval history: 72-year-old male with history of heart disease, AFib monitor comorbidities presented with syncopal episode thought to be secondary to hypoglycemia. No overnight events noted. No chest pain or shortness of breath. No nausea, vomiting or diarrhea. No fevers or chills. Review of Systems Review of Systems: 12 point review of systems was assessed and was negative except as noted in the HPI Exam Narrative: General: No acute distress, alert and oriented per baseline HEENT: Atraumatic, normocephalic, mucous membranes moist CV: Regular rate and rhythm, S1, S2 Lungs: Clear to auscultation bilaterally, no rales or crackles noted, no wheezes, good air entry Abdomen: Soft, nontender, nondistended Extremities: Normal to inspection Skin: No rashes noted, no lesions or wounds seen Psych: Euthymic, normal affect Objective Data Vital Signs Vital Signs: Vital Signs - 24 hr 12/07/22 00:15 12/07/22 04:00 12/07/22 04:00 Temperature 97.4 F L 97.6 F Pulse Rate 97 88 88 Respiratory Rate 16 16 Blood Pressure 144/77 H 138/69 Pulse Oximetry 96 97 Oxygen Delivery 12/07/22 04:00 Temperature Pulse Rate Respiratory Rate Blood Pressure Pulse Oximetry Oxygen Delivery Room Air Meds/Results Medications: Active Medications Generic Name Dose Route Start Last Admin Trade Name Freq PRN Reason Stop Dose Admin Acetaminophen 650 mg 12/07/22 02:05 Acetaminophen 325 Mg Tablet PO Q4H PRN Mild Pain (1-3) or Fever Al Hydrox/Mg Hydrox/Simethicone 30 ml 12/07/22 02:05 Mag Hydrox/Al Hydrox/Simeth 30 Ml Udc PO QID PRN Dyspepsia Apixaban 10 mg 12/07/22 09:00 Apixaban 5 Mg Tablet PO Q12HR [facility] Aspirin 81 mg 12/07/22 09:00 Aspirin 81 Mg Enteric Tablet PO DAILY [facility] Atorvastatin Calcium 80 mg 12/07/22 21:00 Atorvastatin 40 Mg Tablet PO QHS [facility] Cyanocobalamin 1,000 mcg 12/07/22 09:00 Cyanocobalamin 1,000 Mcg Tablet PO 01/06/23 08:59 DAILY [facility] Dextrose 12.5 gm 12/07/22 02:13 Dextrose 50% 25 Gm/50 Ml Syringe IV PUSH PRN PRN Hypoglycemia Protocol Diltiazem HCl 360 mg 12/07/22 09:00 Diltiazem Hcl Cd 180 Mg Cap.24hr PO DAILY [facility] Docusate Sodium 100 mg 12/07/22 09:00 Docusate Sodium 100 Mg Capsule PO DAILY [facility] Ezetimibe 10 mg 12/07/22 09:00 Ezetimibe 10 Mg Tablet PO DAILY [facility] Empagliflozin 25 mg 12/07/22 09:00 Empagliflozin 25 Mg Tablet PO QAM [facility] Glucagon 1 mg 12/07/22 02:13 Glucagon For Inj 1 Mg Vial IM PRN PRN Hypoglycemia
[2022-12-07] MEDS: APIXABAN 5 MG TABLET 10 MG PO ×2 (09:46→20:54)
[2022-12-07] MEDS: dilTIAZem HCL CD 180 MG CAP.24HR 360 MG PO (09:46)
[2022-12-07] MEDS: DOCUSATE SODIUM 100 MG CAPSULE PO (09:46)
[2022-12-07] MEDS: METOPROLOL SUCCINATE EXT REL 100 MG TABCR PO (09:46)
[2022-12-07] MEDS: EMPAGLIFLOZIN 25 MG TABLET PO (09:46)
[2022-12-07] MEDS: MAGNESIUM SULF 2 GM/WATER 50ML 2 GM/50 ML BAG IVPB (09:46)
[2022-12-07] MEDS: THERAPEUTIC MULTIVITAMINS/MINERALS TAB (*BKC) 1 TABLET PO (09:46)
[2022-12-07] MEDS: INSULIN ASPART (*BKC) 100 UNITS/ML 8 UNITS SUB-Q ×2 (09:46→18:27)
[2022-12-07] MEDS: SERTRALINE HCL 25 MG TABLET PO (09:46)
[2022-12-07] MEDS: CYANOCOBALAMIN 1,000 MCG TABLET 1000 MCG PO (09:46)
[2022-12-07] MEDS: EZETIMIBE 10 MG TABLET PO (09:47)
[2022-12-07] MEDS: CHOLECALCIFEROL 1,000 UNITS TABLET 2000 UNITS PO (09:47)
[2022-12-07] MEDS: ASPIRIN 81 MG ENTERIC TABLET PO (09:47)
--- NOTE | 2022-12-07 11:15 | PM.CNCAR ---
Assessment and Plan Assessment and plan (1) Episode of syncope: Code(s): R55 - Syncope and collapse Status: Acute Assessment and Plan: He had one syncopal event yesterday afternoon. Etiology unclear. No high degree blocks, pauses, angela or tachyarrhythmias on telemetry thus far that would explain his syncope. He is in atrial flutter with controlled ventricular response. Blood pressure is stable. It looks like he had a set or orthostatic vitals checked yesterday and SBP had mild drop from 151mmHg to 138mmHg. Continue to monitor on telemetry. Echo has been ordered and will be reviewed. (2) Coronary artery disease involving [place] coronary artery of [place] heart: Code(s): I25.10 - Atherosclerotic heart disease of [place] coronary artery without angina pectoris Status: Acute Assessment and Plan: Stable. Continue ASA, statin (3) Atrial flutter: Code(s): I48.92 - Unspecified atrial flutter Status: Acute Assessment and Plan: Rate controlled. On eliquis for stroke prophylaxis. 10mg b.i.d. has been ordered which is not the appropriate dose for this indication - will reduce to 5mg b.i.d. unless there is some other indication for higher dose History of Present Illness History of Present Illness Consult date/time: 12/07/22 11:15 Requesting physician: Gerald Diallo MD Consult reason: Other (syncope) Reason For Visit: Syncope Narrative: Chadd Rodriguez is a 72-year-old man with coronary artery disease status post CABG x2 in 2015, aortic stenosis status post TAVR in 2021, and paroxysmal atrial fibrillation/flutter. He is admitted to the hospital now because of a syncopal event that occurred yesterday afternoon. He was babysitting his grandkids when he began to feel woozy. He states that he felt like his blood sugar was low as he has experienced this feeling before and has found his blood sugar to be in the 60s and 70s. He states that he stood up from the table to get something from the kitchen and briefly lost consciousness. He denies experiencing any chest pain, palpitations, or shortness of breath. He also notes that he began taking Ozempic about 7 weeks ago and has not been feeling very well -he has been nauseous, has no appetite, and is not drinking very many fluids. Review of Systems Review of Systems: All systems reviewed & are unremarkable except as noted in HPI and below PMFSH Past Medical History Medical History A-fib Arthralgia Atrial fibrillation/flutter Coronary artery disease involving [place] coronary artery of [place] heart Episode of syncope Hyperkalemia Hypertensive heart disease without congestive heart failure Insomnia LLQ abdominal pain Neuroendocrine tumor of pancreas Nonrheumatic aortic (valve) stenosis Obstructive sleep apnea, adult Pancreatic lesion Pure hypercholesterolemia Stroke Tinea cruris Tremor Type 2 diabetes mellitus with hyperglycemia Surgical History Surgical History H/O splenectomy History of partial pancreatectomy Hx of CABG S/P TAVR (transcatheter aortic valve replacement) 01/28/22 Family History Family History Sibling Family history of malignant neoplasm Family history of coronary artery disease Mother Family history of diabetes mellitus in first degree relative Father Family history of coronary artery disease Social History Social History Smoking packs per day: 0.5 Smoking cigarettes per day: 10.0 Years smoked: 1 Smoking pack-years: 0.50 Smoking status: Former smoker Tobacco type: cigarettes Second hand tobacco smoke exposure: Yes Smoking end date: 02/29/08 Alcohol intake: current Drinks per week: 1 Alcohol use details: likes a glass of wine Substance use: never Substance use
[2022-12-07 11:24] LABS: Troponin I 0.015 ng/mL (0.000-0.034)
[2022-12-07 12:01] LABS: Glucose Point of Care 138 mg/dl (65-105)
[2022-12-07] MEDS: INSULIN ASPART (*BKC) 100 UNITS/ML 6 UNITS SUB-Q (12:10)
[2022-12-07] MEDS: PERFLUTREN LIPID MICROSPHERES 1.5 ML VIAL DILUTED TO 10 ML TOTAL VOLUME IV PUSH (14:25)
--- NOTE | 2022-12-07 15:14 | PCPTNOTE ---
Attempted PT evaluation, pt refused stating he does not need therapy services at this time. RN aware and also reports pt is doing well with functional mobility.
--- NOTE | 2022-12-07 15:55 | PC.NURSE ---
Notified Jaelyn Castellanos that the patient has been having what the data warehouse analyst calls pauses. They last up to 2 seconds long and appear to be his atrial flutter waves with no QRS complex. Patient is asymptomatic with these episodes. Do not call cardiology unless the pauses are longer than 8 seconds.
--- NOTE | 2022-12-07 16:42 | IVDEFINITY ---
Prior to administration of IV Definity the patient was educated on the risks and benefits of the imaging enhancing agent including potential adverse side effects. The patient verbalized understanding. Allergies were verified. No exclusion criteria were identified and at least one of the following inclusion criteria were met: 1) physician request, 2) patient technically difficult to image (per the [place] [employer] guidelines of two or more segments not discernable within the apical view), or 3) questionable left ventricular function. ?
[2022-12-07 17:08] LABS: Glucose Point of Care 140 mg/dl (65-105)
[2022-12-07] MEDS: INSULIN GLARGINE (*BKC) 100 UNITS/ML 22 UNITS SUB-Q (18:26)
[2022-12-07 19:58] LABS: Glucose Point of Care 122 mg/dl (65-105)
[2022-12-07] MEDS: ATORVASTATIN 40 MG TABLET 80 MG PO (20:54)
[2022-12-08] VITALS (20 sets, daily range): BP systolic 126–145; BP diastolic 64–84; PULSE 53–110; RESP 12–18; TEMP 36.2–36.6; O2SAT 97–99
[2022-12-08 05:09] LABS: Basophils Absolute Auto 0.1 K/mm3 (0.0-0.1); Basophils Percent Auto 0.5 % (0.2-1.2); Eosinophils Absolute Auto 0.3 K/mm3 (0-0.3); Eosinophils Percent Auto 2.9 % (0-4.4); Hematocrit 43.2 % (42.0-52.0); Hemoglobin 14.2 g/dL (14.0-18.0); Immature Granulocyte Absolute 0.06 K/mm3 (0.00-0.031); Immature Granulocyte Percent A 0.5 % (0-0.5); Lymphocytes Absolute Auto 3.57 K/mm3 (0.9-3.2); Lymphocytes Percent Auto 32.4 % (18.3-44.2); Mean Corpuscular HGB Conc 32.9 g/dl (32-36); Mean Corpuscular Hemoglobin 29.6 pg (26-34); Mean Corpuscular Volume 90.2 fl (80-100); Mean Platelet Volume 11.5 fl (7.4-10.4); Monocytes Percent Auto 9.4 % (2.6-8.5); Neutrophils Percent Auto 54.3 % (45.5-73.1); Platelet Count Result 364 k/mm3 (150-375); Red Blood Count 4.79 M/mm3 (4.6-6.20); Red Cell Distribution Width 16.8 % (11.5-14.5)
[2022-12-08 05:24] LABS: Alanine Aminotransferase 57 U/L (6-50); Albumin Level 3.9 g/dL (3.5-5.1); Alkaline Phosphatase 91 U/L (38-126); Anion Gap 9 mmol/L (8-16); Aspartate Amino Transferase 68 U/L (17-59); Bilirubin,Total 0.8 mg/dL (0.2-1.3); Blood Urea Nitrogen 13 mg/dL (9-20); Calcium 8.8 mg/dL (8.4-10.2); Carbon Dioxide 25 mmol/L (22-30); Chloride 103 mmol/L (98-107); Estimated CRCL calculation 71 ml/min; Estimated Glomerular Filt Rate > 60; Glucose 122 mg/dL (65-110); Magnesium 1.8 mg/dL (1.6-2.3); Potassium 4.1 mmol/L (3.4-5.0); Sodium 137 mmol/L (137-145)
[2022-12-08 05:36] LABS: Troponin I 0.015 ng/mL (0.000-0.034)
[2022-12-08 06:32] LABS: Folic Acid 8.3 ng/mL (2.76->20); Vitamin B12 > 1000.0 pg/mL (239-931)
[2022-12-08 08:44] LABS: Glucose Point of Care 135 mg/dl (65-105)
[2022-12-08] MEDS: THERAPEUTIC MULTIVITAMINS/MINERALS TAB (*BKC) 1 TABLET PO (08:51)
[2022-12-08] MEDS: EZETIMIBE 10 MG TABLET PO (08:51)
[2022-12-08] MEDS: ASPIRIN 81 MG ENTERIC TABLET PO (08:51)
[2022-12-08] MEDS: EMPAGLIFLOZIN 25 MG TABLET PO (08:51)
[2022-12-08] MEDS: DOCUSATE SODIUM 100 MG CAPSULE PO (08:51)
[2022-12-08] MEDS: CYANOCOBALAMIN 1,000 MCG TABLET 1000 MCG PO (08:51)
[2022-12-08] MEDS: CHOLECALCIFEROL 1,000 UNITS TABLET 2000 UNITS PO (08:51)
[2022-12-08] MEDS: APIXABAN 5 MG TABLET 10 MG PO (08:53)
[2022-12-08] MEDS: INSULIN ASPART (*BKC) 100 UNITS/ML 8 UNITS SUB-Q ×2 (08:56→16:30)
[2022-12-08 11:53] LABS: Glucose Point of Care 161 mg/dl (65-105)
[2022-12-08] MEDS: INSULIN ASPART (*BKC) 100 UNITS/ML 6 UNITS SUB-Q (12:20)
--- NOTE | 2022-12-08 12:40 | PM.PNCARD ---
Progress Note: A&P Assessment and Plan (1) Episode of syncope: Code(s): R55 - Syncope and collapse Status: Acute Assessment and Plan: Admitted following a syncopal event at home. He is in atrial flutter with controlled ventricular response and did have some pauses noted on telemetry since admision. Majority of these are not concerning since he is in atrial flutter but did have a few that were as long as 8.5 seconds in duration. Many pauses and some mild bradycardia mostly during hours of sleep but also some during waking hours. Presumably because of this both his diltiazem and metoprolol ave been held. Concern for atrial flutter with RVR with holding both of these medications. Also concern for rebound tachycardia with holding metoprolol. We can continue to monitor him on telemetry overnight once again and will also plan to discharge with 14 day monitoring manager. Echo was reviewed and was unremarkable. He does probably have untreated sleep apnea (was told many years ago he needed CPAP but does not use it). Will check [employer] tonight. (2) Coronary artery disease involving [place] coronary artery of [place] heart: Code(s): I25.10 - Atherosclerotic heart disease of [place] coronary artery without angina pectoris Status: Acute Assessment and Plan: Stable. Continue ASA, statin (3) Atrial flutter: Code(s): I48.92 - Unspecified atrial flutter Status: Acute Assessment and Plan: As above. Rate controlled. On eliquis for stroke prophylaxis. Subjective Date/time seen: 12/08/22 12:40 Interval history: Cardiology follow up for syncope Feeling well and has not had any recurrent syncope or pre-syncope. No chest pain, shortness of breath, or palpitations. Review of Systems Review of Systems: All systems reviewed & are unremarkable except as noted in HPI and below Exam Const: General: comfortable, no acute distress, alert and awake Orientation/consciousness: patient oriented x3 HENMT: Head: normal to inspection Eyes: General: appearance normal, both eyes and all related structures Pupils: Equal, round and reactive pupils present Neck: Neck: normal visual inspection, supple and no JVD Carotids: normal carotid upstroke and no bruits Resp: Effort & Inspection: normal respiratory effort Auscultation: clear to auscultation bilaterally Cardio: Rate: regular rate Rhythm: abnormal rhythm irregularly irregular Heart sounds: S1 normal heart sound present, S2 normal heart sound present and no murmurs GI: Auscultation: normal bowel sounds Skin: General skin exam: normal color Neuro: General: patient oriented x3 Cranial nerves: Yes Equal, round and reactive pupils present Extrem: General: normal to inspection Psych: Appearance: grossly normal Mental Status: mental status grossly normal Objective Data Vital Signs Vital Signs: Vital Signs - 24 hr 12/07/22 14:00 12/07/22 16:00 12/07/22 16:00 Temperature Pulse Rate 75 76 Pulse Rate [With Activity During Therapy Session] Respiratory Rate Blood Pressure Pulse Oximetry Oxygen Delivery Room Air 12/07/22 16:00 12/07/22 18:00 12/07/22 19:42 Temperature 36.6 C 36.2 C L Pulse Rate 76 40 L 54 L Pulse Rate [With Activity During Therapy Session] Respiratory Rate 12 18 Blood Pressure 128/77 134/76 Pulse Oximetry 98 95 Oxygen Delivery 12/07/22 19:42 12/07/22 19:42 12/07/22 19:42 Temperature 36.1 C L 36.2 C L 36.0 C L Pulse Rate 64 54 L 77 Pulse Rate [With Activity During Therapy Session] Respiratory Rate 20 18 20 Blood Pressure 122/79 134/76 122/66 Pulse Oximetry 96 95 95 Oxygen Delivery 12/07/22 20:00 12/07/22 23:47 12/07/22 20:00 Temperature 36.6 C Pulse Rate 52 L 62 Pulse Rate [With Activity During Therapy Session] Respiratory Rate 16 Blood Pressure 132/83 Pulse Oximetry 97 Oxygen Delivery Room Air 12/08/22 00:00 12/08/22 04:27
--- NOTE | 2022-12-08 13:09 | PM.IMPN ---
Progress Note: A&P Assessment and Plan (1) Episode of syncope: Code(s): R55 - Syncope and collapse Status: Acute Assessment and Plan: Patient presents with syncopal episode. Doubt seizure since aware upon awaking and felt well. Possibly low blood sugar or possible from prolonged cardiac pause. Ozempic stopped. Metoprolol and Diltiazem also stopped. Cardiology aware and are following along. Echo showing EF 50-55%, mild prosthetic . Monitor on tele (2) Type 2 diabetes mellitus with hyperglycemia: Code(s): E11.65 - Type 2 diabetes mellitus with hyperglycemia Status: Acute Assessment and Plan: A1c 7.3. The patient's blood glucose was reviewed on 12/08 Glucose remains well controlled. Continue AccuCheks covering with sliding scale. Hypoglycemia protocol available as needed. Continue to follow (3) Coronary artery disease involving [place] coronary artery of [place] heart: Code(s): I25.10 - Atherosclerotic heart disease of [place] coronary artery without angina pectoris Status: Acute Assessment and Plan: Stable. Continue Lipitor and ASA. Betablocker off now. (4) S/P TAVR (transcatheter aortic valve replacement): Code(s): Z95.2 - Presence of prosthetic heart valve Status: Acute Assessment and Plan: Echo showing well positioned valve. Currently on Eliquis. We will lower dose to 5mg Q12h. (5) A-fib: Code(s): I48.91 - Unspecified atrial fibrillation Status: Acute Assessment and Plan: Pateitn with AFib/Fluuter. having bradycardia and long pauses. Was on Diltiazem and Toprol both of which are held. Continue Eliquis (6) Hypomagnesemia: Code(s): E83.42 - Hypomagnesemia Status: Acute Assessment and Plan: Mag 1.8 today. Will replace again. Follow. Plan DVT prophylaxis with eliquis GI prophylaxis not indicated Code status full code Subjective Date/time seen: 12/08/22 13:09 Interval history: 72yo male with history of heart disease, AFib monitor comorbidities presented with syncopal episode thought to be secondary to hypoglycemia. Assuming care. Chart reviewed. he is on Eliquis 5mg (not 10mg as listed). No CP or SOB. He felt he had low glucose prior to the syncopal episode. He did not immediately present to the ED since he felt better after waking up on the floor. Later, he felt dizzy/LH/pre-syncopal when sitting on the couch (glucose was okay). He is having side effects from the Ozempic with poor appetite, nausea and vomiting. Exam Narrative: AF 98.0 129/80 61 16 99% ra Gen - NARD Chest - CTA bilaterally, nml RR CV - irregularly irregular. Tele showing AFlutter with variable conduction and multiple pauses (longest 7.4sec) Abd - Soft, NT/ND, Positive BS Ext - No pedal edema Psych - Nml mood and affect Skin - Warm and dry Objective Data Vital Signs Vital Signs: Vital Signs - 24 hr 12/07/22 14:00 12/07/22 16:00 12/07/22 16:00 Temperature Pulse Rate 75 76 Pulse Rate [With Activity During Therapy Session] Respiratory Rate Blood Pressure Pulse Oximetry Oxygen Delivery Room Air 12/07/22 16:00 12/07/22 18:00 12/07/22 19:42 Temperature 97.8 F 97.1 F L Pulse Rate 76 40 L 54 L Pulse Rate [With Activity During Therapy Session] Respiratory Rate 12 18 Blood Pressure 128/77 134/76 Pulse Oximetry 98 95 Oxygen Delivery 12/07/22 19:42 12/07/22 19:42 12/07/22 19:42 Temperature 97.0 F L 97.1 F L 96.8 F L Pulse Rate 64 54 L 77 Pulse Rate [With Activity During Therapy Session] Respiratory Rate 20 18 20 Blood Pressure 122/79 134/76 122/66 Pulse Oximetry 96 95 95 Oxygen Delivery 12/07/22 20:00 12/07/22 23:47 12/07/22 20:00 Temperature 97.9 F Pulse Rate 52 L 62 Pulse Rate [With Activity During Therapy Session] Respiratory Rate 16 Blood Pressure 132/83 Pulse Oximetry 97 Oxygen Delivery Room Air 12/08/22 00:00
[2022-12-08] MEDS: MAGNESIUM SULF 2 GM/WATER 50ML 2 GM/50 ML BAG IVPB (14:24)
[2022-12-08] MEDS: INSULIN GLARGINE (*BKC) 100 UNITS/ML 22 UNITS SUB-Q (16:31)
[2022-12-08 17:37] LABS: Glucose Point of Care 115 mg/dl (65-105)
[2022-12-08 20:32] LABS: Glucose Point of Care 105 mg/dl (65-105)
[2022-12-08] MEDS: ATORVASTATIN 40 MG TABLET 80 MG PO (20:44)
[2022-12-08] MEDS: APIXABAN 5 MG TABLET PO (20:44)
[2022-12-09] VITALS (20 sets, daily range): BP systolic 115–172; BP diastolic 65–96; PULSE 76–91; RESP 14–18; TEMP 36.3–36.6; O2SAT 95–100
[2022-12-09 05:20] LABS: Basophils Absolute Auto 0.1 K/mm3 (0.0-0.1); Basophils Percent Auto 0.8 % (0.2-1.2); Eosinophils Absolute Auto 0.4 K/mm3 (0-0.3); Eosinophils Percent Auto 2.9 % (0-4.4); Hematocrit 42.9 % (42.0-52.0); Hemoglobin 14.4 g/dL (14.0-18.0); Immature Granulocyte Absolute 0.07 K/mm3 (0.00-0.031); Immature Granulocyte Percent A 0.6 % (0-0.5); Lymphocytes Absolute Auto 3.31 K/mm3 (0.9-3.2); Lymphocytes Percent Auto 27.8 % (18.3-44.2); Mean Corpuscular HGB Conc 33.6 g/dl (32-36); Mean Corpuscular Volume 89.4 fl (80-100); Mean Platelet Volume 11.3 fl (7.4-10.4); Monocytes Absolute Auto 1.2 K/mm3 (0.1-0.6); Monocytes Percent Auto 10.4 % (2.6-8.5); Neutrophils Absolute Auto 6.9 K/mm3 (1.3-6.7); Neutrophils Percent Auto 57.5 % (45.5-73.1); Platelet Count Result 368 k/mm3 (150-375); Red Cell Distribution Width 16.5 % (11.5-14.5); White Blood Count 11.9 K/mm3 (4.5-10.0)
[2022-12-09 05:42] LABS: Alanine Aminotransferase 60 U/L (6-50); Albumin Level 3.8 g/dL (3.5-5.1); Alkaline Phosphatase 96 U/L (38-126); Anion Gap 10 mmol/L (8-16); Aspartate Amino Transferase 69 U/L (17-59); Bilirubin,Total 0.6 mg/dL (0.2-1.3); Blood Urea Nitrogen 13 mg/dL (9-20); Calcium 8.8 mg/dL (8.4-10.2); Carbon Dioxide 22 mmol/L (22-30); Chloride 105 mmol/L (98-107); Estimated CRCL calculation 63 ml/min; Estimated Glomerular Filt Rate > 60; Glucose 109 mg/dL (65-110); Potassium 3.7 mmol/L (3.4-5.0); Sodium 137 mmol/L (137-145)
[2022-12-09 08:45] LABS: Glucose Point of Care 189 mg/dl (65-105)
[2022-12-09] MEDS: ASPIRIN 81 MG ENTERIC TABLET PO (09:25)
[2022-12-09] MEDS: DOCUSATE SODIUM 100 MG CAPSULE PO (09:25)
[2022-12-09] MEDS: THERAPEUTIC MULTIVITAMINS/MINERALS TAB (*BKC) 1 TABLET PO (09:25)
[2022-12-09] MEDS: EZETIMIBE 10 MG TABLET PO (09:25)
[2022-12-09] MEDS: APIXABAN 5 MG TABLET PO ×2 (09:26→20:18)
[2022-12-09] MEDS: EMPAGLIFLOZIN 25 MG TABLET PO (09:26)
[2022-12-09] MEDS: CHOLECALCIFEROL 1,000 UNITS TABLET 2000 UNITS PO (09:26)
[2022-12-09] MEDS: CYANOCOBALAMIN 1,000 MCG TABLET 1000 MCG PO (09:26)
[2022-12-09] MEDS: SERTRALINE HCL 25 MG TABLET PO (09:26)
--- NOTE | 2022-12-09 09:35 | PM.PNCARD ---
Progress Note: A&P Assessment and Plan (1) Episode of syncope: Code(s): R55 - Syncope and collapse Status: Acute Assessment and Plan: Admitted following a syncopal event at home. He is in atrial flutter with controlled ventricular response and did have some pauses noted on telemetry since admision. Majority of these are not concerning since he is in atrial flutter but did have a few that were as long as 8.5 seconds in duration. Many pauses and some mild bradycardia mostly during hours of sleep but also some during waking hours. Presumably because of this both his diltiazem and metoprolol have been held and he continues to have some concerning pauses. Discussed indication for pacemaker in this setting and recommendation to proceed with this when able (on DOAC, so would not be able to implant PPM until Tuesday). Patient agreeable to this plan. He should remain hospitalized until pacer implantation on Tuesday. Will discuss device choice with Dr. Beyer (Micra vs. traditional pacemaker device). (2) Coronary artery disease involving [place] coronary artery of [place] heart: Code(s): I25.10 - Atherosclerotic heart disease of [place] coronary artery without angina pectoris Status: Acute Assessment and Plan: Stable. Continue ASA, statin (3) Atrial flutter: Code(s): I48.92 - Unspecified atrial flutter Status: Acute Assessment and Plan: As above. Rate controlled. On eliquis for stroke prophylaxis, but will hold this in anticipation of pacer on Tuesday. Subjective Date/time seen: 12/09/22 09:35 Interval history: Cardiology follow up for syncope Feeling well and has not had any recurrent syncope or pre-syncope. No chest pain, shortness of breath, or palpitations. Date of service 12/09/2022: Feeling well this morning and has no complaints. Review of Systems Review of Systems: All systems reviewed & are unremarkable except as noted in HPI and below Exam Const: General: comfortable, no acute distress, alert and awake Orientation/consciousness: patient oriented x3 HENMT: Head: normal to inspection Eyes: General: appearance normal, both eyes and all related structures Pupils: Equal, round and reactive pupils present Neck: Neck: normal visual inspection, supple and no JVD Carotids: normal carotid upstroke and no bruits Resp: Effort & Inspection: normal respiratory effort Auscultation: clear to auscultation bilaterally Cardio: Rate: regular rate Rhythm: abnormal rhythm irregularly irregular Heart sounds: S1 normal heart sound present, S2 normal heart sound present and no murmurs GI: Auscultation: normal bowel sounds Skin: General skin exam: normal color Neuro: General: patient oriented x3 Cranial nerves: Yes Equal, round and reactive pupils present Extrem: General: normal to inspection Psych: Appearance: grossly normal Mental Status: mental status grossly normal Objective Data Vital Signs Vital Signs: Vital Signs - 24 hr 12/08/22 09:42 12/08/22 10:00 12/08/22 11:57 Temperature 36.6 C Pulse Rate 60 61 Pulse Rate [With Activity During Therapy Session] 92 Respiratory Rate 16 Blood Pressure 129/80 Pulse Oximetry 99 Oxygen Delivery Room Air 12/08/22 12:00 12/08/22 16:00 12/08/22 16:00 Temperature 36.6 C Pulse Rate 67 Pulse Rate [With Activity During Therapy Session] Respiratory Rate 12 Blood Pressure 135/84 Pulse Oximetry 99 98 98 Oxygen Delivery Room Air Room Air 12/08/22 12:00 12/08/22 14:00 12/08/22 16:00 Temperature Pulse Rate 75 70 64 Pulse Rate [With Activity During Therapy Session] Respiratory Rate Blood Pressure Pulse Oximetry Oxygen Delivery 12/08/22 18:00 12/08/22 19:56 12/08/22 19:57 Temperature 36.4 C Pulse Rate 110 H 88 Pulse Rate [With Activity During Therapy Session] Respiratory Rate 16 Blood Pressure 136/72 136/72 Pulse Oximetry 98 Oxygen Delivery
[2022-12-09 12:13] LABS: Glucose Point of Care 194 mg/dl (65-105)
[2022-12-09] MEDS: INSULIN ASPART (*BKC) 100 UNITS/ML 6 UNITS SUB-Q (12:35)
--- NOTE | 2022-12-09 13:23 | PM.IMPN ---
Progress Note: A&P Assessment and Plan (1) Episode of syncope: Code(s): R55 - Syncope and collapse Status: Acute Assessment and Plan: Patient presents with syncopal episode. Doubt seizure since aware upon awaking and felt well. Possibly low blood sugar or possible from prolonged cardiac pause. Ozempic stopped. Metoprolol and Diltiazem also stopped. Echo showing EF 50-55%, mild prosthetic . Cardiology aware and are following along. Monitor on tele. PM being considered. Stop Eliquis? (2) A-fib: Code(s): I48.91 - Unspecified atrial fibrillation Status: Acute Assessment and Plan: Patient with AFib/Flutter. He is having bradycardia and long pauses. Was on Diltiazem and Toprol both of which are held. Watch for tachycardia. Apnea link ordered. Monitor on tele. On Eliquis (3) Type 2 diabetes mellitus with hyperglycemia: Code(s): E11.65 - Type 2 diabetes mellitus with hyperglycemia Status: Acute Assessment and Plan: A1c 7.3. The patient's blood glucose was reviewed on 12/09 Glucose remains well controlled. Continue AccuCheks covering with sliding scale. Hypoglycemia protocol available as needed. Continue to follow (4) Coronary artery disease involving [place] coronary artery of [place] heart: Code(s): I25.10 - Atherosclerotic heart disease of [place] coronary artery without angina pectoris Status: Acute Assessment and Plan: Stable. Continue Lipitor and ASA. Betablocker off now. (5) S/P TAVR (transcatheter aortic valve replacement): Code(s): Z95.2 - Presence of prosthetic heart valve Status: Acute Assessment and Plan: Echo showing well positioned valve. Currently on Eliquis. (6) Hypomagnesemia: Code(s): E83.42 - Hypomagnesemia Status: Acute Assessment and Plan: Mag 2.0 today. Follow. Plan DVT prophylaxis with Eliquis GI prophylaxis not indicated Code status full code Subjective Date/time seen: 12/09/22 13:23 Interval history: 72yo male with history of heart disease, AFib monitor comorbidities presented with syncopal episode thought to be secondary to hypoglycemia. Feels well. Slept okay. No Palpitations or CP. Had cardiac pause of 4sec but he does not feel these. Had ARNULFO many years ago when he was heavier. He has lost roughly 80# since he was diagnosed with ARNULFO. He has not been re-tested. Exam Narrative: AF 97.3 172/73 90 14 100% ra Gen - NARD Chest - CTA bilaterally, nml RR CV - irregularly irregular. Tele showing AFlutter with variable conduction and multiple pauses (longest 4 sec) Abd - Soft, NT/ND, Positive BS Ext - No pedal edema Psych - Nml mood and affect Skin - Warm and dry Objective Data Vital Signs Vital Signs: Vital Signs - 24 hr 12/08/22 16:00 12/08/22 16:00 12/08/22 14:00 Temperature 97.8 F Pulse Rate 67 70 Respiratory Rate 12 Blood Pressure 135/84 Pulse Oximetry 98 98 Oxygen Delivery Room Air 12/08/22 16:00 12/08/22 18:00 12/08/22 19:56 Temperature 97.6 F Pulse Rate 64 110 H 88 Respiratory Rate 16 Blood Pressure 136/72 Pulse Oximetry 98 Oxygen Delivery 12/08/22 19:57 12/08/22 19:57 12/08/22 19:57 Temperature Pulse Rate Respiratory Rate Blood Pressure 136/72 145/66 H 130/65 Pulse Oximetry Oxygen Delivery 12/08/22 20:00 12/09/22 00:02 12/08/22 20:00 Temperature 97.3 F L Pulse Rate 90 77 Respiratory Rate 16 Blood Pressure 134/79 Pulse Oximetry 95 97 Oxygen Delivery Room Air 12/09/22 00:00 12/08/22 22:00 12/09/22 00:00 Temperature Pulse Rate 87 78 Respiratory Rate Blood Pressure Pulse Oximetry 98 Oxygen Delivery Room Air 12/09/22 02:00 12/09/22 04:00 12/09/22 04:00 Temperature 97.8 F Pulse Rate 76 83 Respiratory Rate 16 Blood Pressure 150/77 H Pulse Oximetry 97 Oxygen Delivery Room Air 12/09/22 04:00 12/09/22 06:00 1
[2022-12-09 17:34] LABS: Glucose Point of Care 169 mg/dl (65-105)
[2022-12-09] MEDS: INSULIN ASPART (*BKC) 100 UNITS/ML 8 UNITS SUB-Q (17:41)
[2022-12-09] MEDS: INSULIN GLARGINE (*BKC) 100 UNITS/ML 22 UNITS SUB-Q (17:41)
[2022-12-09 20:15] LABS: Glucose Point of Care 141 mg/dl (65-105)
[2022-12-09] MEDS: ATORVASTATIN 40 MG TABLET 80 MG PO (20:18)
[2022-12-10] VITALS (15 sets, daily range): BP systolic 128–150; BP diastolic 72–92; PULSE 47–97; RESP 13–18; TEMP 36.1–36.7; O2SAT 97–98
[2022-12-10 06:39] LABS: Basophils Absolute Auto 0.1 K/mm3 (0.0-0.1); Basophils Percent Auto 0.6 % (0.2-1.2); Eosinophils Absolute Auto 0.3 K/mm3 (0-0.3); Eosinophils Percent Auto 2.4 % (0-4.4); Hematocrit 42.6 % (42.0-52.0); Hemoglobin 14.1 g/dL (14.0-18.0); Immature Granulocyte Absolute 0.09 K/mm3 (0.00-0.031); Immature Granulocyte Percent A 0.8 % (0-0.5); Lymphocytes Absolute Auto 2.99 K/mm3 (0.9-3.2); Mean Corpuscular HGB Conc 33.1 g/dl (32-36); Mean Corpuscular Hemoglobin 30.1 pg (26-34); Mean Corpuscular Volume 90.8 fl (80-100); Mean Platelet Volume 11.1 fl (7.4-10.4); Monocytes Absolute Auto 1.1 K/mm3 (0.1-0.6); Monocytes Percent Auto 10.1 % (2.6-8.5); Neutrophils Absolute Auto 6.6 K/mm3 (1.3-6.7); Neutrophils Percent Auto 59.1 % (45.5-73.1); Nucleated Red Blood Cells Perc 0.2 % (0.0-0.2); Platelet Count Result 337 k/mm3 (150-375); Red Blood Count 4.69 M/mm3 (4.6-6.20); Red Cell Distribution Width 17.1 % (11.5-14.5); White Blood Count 11.1 K/mm3 (4.5-10.0)
[2022-12-10 06:49] LABS: Alanine Aminotransferase 87 U/L (6-50); Albumin Level 3.6 g/dL (3.5-5.1); Alkaline Phosphatase 102 U/L (38-126); Anion Gap 8 mmol/L (8-16); Aspartate Amino Transferase 98 U/L (17-59); Bilirubin,Total 0.6 mg/dL (0.2-1.3); Blood Urea Nitrogen 16 mg/dL (9-20); Calcium 8.6 mg/dL (8.4-10.2); Carbon Dioxide 23 mmol/L (22-30); Chloride 107 mmol/L (98-107); Estimated CRCL calculation 63 ml/min; Estimated Glomerular Filt Rate > 60; Glucose 116 mg/dL (65-110); Magnesium 1.9 mg/dL (1.6-2.3); Potassium 4.2 mmol/L (3.4-5.0); Sodium 138 mmol/L (137-145)
[2022-12-10 08:11] LABS: Glucose Point of Care 127 mg/dl (65-105)
[2022-12-10] MEDS: INSULIN ASPART (*BKC) 100 UNITS/ML 8 UNITS SUB-Q ×2 (08:37→16:29)
[2022-12-10] MEDS: MAGNESIUM SULF 2 GM/WATER 50ML 2 GM/50 ML BAG IVPB (08:37)
[2022-12-10] MEDS: CHOLECALCIFEROL 1,000 UNITS TABLET 2000 UNITS PO (08:38)
[2022-12-10] MEDS: DOCUSATE SODIUM 100 MG CAPSULE PO (08:38)
[2022-12-10] MEDS: SERTRALINE HCL 25 MG TABLET PO (08:38)
[2022-12-10] MEDS: ASPIRIN 81 MG ENTERIC TABLET PO (08:38)
[2022-12-10] MEDS: CYANOCOBALAMIN 1,000 MCG TABLET 1000 MCG PO (08:38)
[2022-12-10] MEDS: EMPAGLIFLOZIN 25 MG TABLET PO (08:38)
[2022-12-10] MEDS: EZETIMIBE 10 MG TABLET PO (08:38)
[2022-12-10] MEDS: THERAPEUTIC MULTIVITAMINS/MINERALS TAB (*BKC) 1 TABLET PO (08:38)
[2022-12-10 09:10] LABS: Hepatitis B Surface Antigen Negative (Negative)
[2022-12-10 09:16] LABS: HAV RESULT Negative (Negative); Hepatitis B Core IgM Result Negative (Negative)
[2022-12-10 09:27] LABS: Hepatitis C Virus Antibody Negative (Negative)
[2022-12-10 11:57] LABS: Glucose Point of Care 155 mg/dl (65-105)
[2022-12-10] MEDS: INSULIN ASPART (*BKC) 100 UNITS/ML 6 UNITS SUB-Q (12:24)
--- NOTE | 2022-12-10 12:48 | PM.IMPN ---
Progress Note: A&P Assessment and Plan (1) Episode of syncope: Code(s): R55 - Syncope and collapse Status: Acute Assessment and Plan: Patient presents with syncopal episode. Doubt seizure since aware upon awaking and felt well. Possibly low blood sugar or possible from prolonged cardiac pause. Ozempic stopped. Metoprolol and Diltiazem also stopped. Echo showing EF 50-55%, mild prosthetic . Cardiology aware and are following along. Monitor on tele. PM being considered. Eliquis held (2) A-fib: Code(s): I48.91 - Unspecified atrial fibrillation Status: Acute Assessment and Plan: Patient with AFib/Flutter. He was having bradycardia and long pauses. Was on Diltiazem and Toprol both of which are held. No longer having pauses. Watch for tachycardia. Apnea link result noted. He will willa outpatient split night sleep study. Monitor on tele. Eliquis on hold2 (3) Type 2 diabetes mellitus with hyperglycemia: Code(s): E11.65 - Type 2 diabetes mellitus with hyperglycemia Status: Acute Assessment and Plan: A1c 7.3. The patient's blood glucose was reviewed on 12/10 Glucose remains well controlled. Continue AccuCheks covering with sliding scale. Hypoglycemia protocol available as needed. Continue to follow (4) Coronary artery disease involving [place] coronary artery of [place] heart: Code(s): I25.10 - Atherosclerotic heart disease of [place] coronary artery without angina pectoris Status: Acute Assessment and Plan: Stable. Continue Lipitor and ASA. Betablocker off for now. (5) S/P TAVR (transcatheter aortic valve replacement): Code(s): Z95.2 - Presence of prosthetic heart valve Status: Acute Assessment and Plan: Echo showing well positioned valve. (6) Hypomagnesemia: Code(s): E83.42 - Hypomagnesemia Status: Acute Assessment and Plan: Mag 1.9 today. Replacement ordered. Follow. Plan DVT prophylaxis with Eliquis GI prophylaxis not indicated Code status full code Subjective Date/time seen: 12/10/22 12:48 Interval history: 72yo male with history of heart disease, AFib monitor comorbidities presented with syncopal episode thought to be secondary to hypoglycemia. No complaints today. No CP or SOB. No n/v. Feels well. Has noted an increase in appetite. Exam Narrative: AF 98.0 129/86 97 16 98% ra Gen - NARD Chest - CTA bilaterally, nml RR CV - irregularly irregular. Tele showing sinus arrhythmia vs AFlutter with variable conduction. Abd - Soft, NT/ND, Positive BS Ext - No pedal edema Psych - Nml mood and affect Skin - Warm and dry Objective Data Vital Signs Vital Signs: Vital Signs - 24 hr 12/09/22 14:00 12/09/22 16:00 12/09/22 16:00 Temperature 97.5 F L Pulse Rate 84 91 90 Respiratory Rate 16 Blood Pressure 131/85 Pulse Oximetry 98 Oxygen Delivery 12/09/22 18:00 12/09/22 19:46 12/09/22 19:47 Temperature 97.5 F L Pulse Rate 90 85 Respiratory Rate 18 Blood Pressure 139/96 H 150/91 H Pulse Oximetry 96 Oxygen Delivery 12/09/22 19:48 12/09/22 19:51 12/09/22 20:00 Temperature Pulse Rate 85 85 Respiratory Rate 18 Blood Pressure 132/81 Pulse Oximetry 96 Oxygen Delivery Room Air 12/09/22 20:00 12/09/22 22:00 12/09/22 23:34 Temperature 97.8 F Pulse Rate 87 84 85 Respiratory Rate 18 Blood Pressure 149/88 H Pulse Oximetry 98 Oxygen Delivery 12/10/22 00:00 12/10/22 00:00 12/10/22 02:00 Temperature Pulse Rate 85 83 84 Respiratory Rate 18 Blood Pressure Pulse Oximetry 98 Oxygen Delivery Room Air 12/10/22 04:00 12/10/22 04:00 12/10/22 05:05 Temperature 97 F L Pulse Rate 84 78 78 Respiratory Rate 18 18 Blood Pressure 145/89 H Pulse Oximetry 98 97 Oxygen Delivery Room Air 12/09/22 22:00 12/10/22 06:07 12/10/22 07:44 Temperature 98.0 F Pulse Rate 83 84 Respi
--- NOTE | 2022-12-10 16:17 | PM.PNCARD ---
Progress Note: A&P Assessment and Plan (1) Episode of syncope: Code(s): R55 - Syncope and collapse Status: Acute Assessment and Plan: Admitted following a syncopal event at home. He is in atrial flutter with controlled ventricular response and did have some pauses noted on telemetry since admision. Majority of these are not concerning since he is in atrial flutter but did have a few that were as long as 8.5 seconds in duration. Many pauses and some mild bradycardia mostly during hours of sleep but also some during waking hours. Presumably because of this both his diltiazem and metoprolol have been held and he continues to have some concerning pauses. Discussed indication for pacemaker in this setting and recommendation to proceed with this when able (on DOAC, so would not be able to implant PPM until Tuesday). Patient agreeable to this plan. He should remain hospitalized until pacer implantation on Tuesday. Eliquis on hold. NPO after MN on Tuesday. (2) Coronary artery disease involving [place] coronary artery of [place] heart: Code(s): I25.10 - Atherosclerotic heart disease of [place] coronary artery without angina pectoris Status: Acute Assessment and Plan: Stable. Continue ASA, statin (3) Atrial flutter: Code(s): I48.92 - Unspecified atrial flutter Status: Acute Assessment and Plan: As above. Rate controlled. On eliquis for stroke prophylaxis, but will hold this in anticipation of pacer on Tuesday. Subjective Date/time seen: 12/10/22 16:17 Interval history: Cardiology follow up for syncope Feeling well and has not had any recurrent syncope or pre-syncope. No chest pain, shortness of breath, or palpitations. Date of service 12/09/2022: Feeling well this morning and has no complaints. Date of service 12/10/2022: Continues to feel well. No palpitations, chest pain, shortness of breath. Reviewed plan for PPM placement. Review of Systems Review of Systems: All systems reviewed & are unremarkable except as noted in HPI and below Exam Const: General: comfortable, no acute distress, alert and awake Orientation/consciousness: patient oriented x3 HENMT: Head: normal to inspection Eyes: General: appearance normal, both eyes and all related structures Pupils: Equal, round and reactive pupils present Neck: Neck: normal visual inspection, supple and no JVD Carotids: normal carotid upstroke and no bruits Resp: Effort & Inspection: normal respiratory effort Auscultation: clear to auscultation bilaterally Cardio: Rate: regular rate Rhythm: abnormal rhythm irregularly irregular Heart sounds: S1 normal heart sound present, S2 normal heart sound present and no murmurs GI: Auscultation: normal bowel sounds Skin: General skin exam: normal color Neuro: General: patient oriented x3 Cranial nerves: Yes Equal, round and reactive pupils present Extrem: General: normal to inspection Psych: Appearance: grossly normal Mental Status: mental status grossly normal Objective Data Vital Signs Vital Signs: Vital Signs - 24 hr 12/09/22 18:00 12/09/22 19:46 12/09/22 19:47 Temperature 36.4 C L Pulse Rate 90 85 Respiratory Rate 18 Blood Pressure 139/96 H 150/91 H Pulse Oximetry 96 Oxygen Delivery 12/09/22 19:48 12/09/22 19:51 12/09/22 20:00 Temperature Pulse Rate 85 85 Respiratory Rate 18 Blood Pressure 132/81 Pulse Oximetry 96 Oxygen Delivery Room Air 12/09/22 20:00 12/09/22 22:00 12/09/22 23:34 Temperature 36.6 C Pulse Rate 87 84 85 Respiratory Rate 18 Blood Pressure 149/88 H Pulse Oximetry 98 Oxygen Delivery 12/10/22 00:00 12/10/22 00:00 12/10/22 02:00 Temperature Pulse Rate 85 83 84 Respiratory Rate 18 Blood Pressure Pulse Oximetry 98 Oxygen Delivery Room Air 12/10/22 04:00 12/10/22 04:00 12/10/22 05:05 Temperature 36.1 C L Pulse Rate 84 78 78 Respiratory Rate 18 18 Bloo
[2022-12-10 16:48] LABS: Glucose Point of Care 140 mg/dl (65-105)
--- NOTE | 2022-12-10 17:10 | PC.NURSE ---
This patient, Chadd Rodriguez, was received from [facility] on 12/10/22 at 1710. Patient/family oriented to unit policies and routines. Report received from Deann BYRNES.
--- NOTE | 2022-12-10 17:16 | PC.NURSE ---
This patient, Chadd Rodriguez, was transferred to [ [facility]] on 12/10/22 at [address]42. Personal belongings sent with patient. Appropriate documentation sent with patient.
[2022-12-10 20:19] LABS: Glucose Point of Care 88 mg/dl (65-105)
[2022-12-10] MEDS: ATORVASTATIN 40 MG TABLET 80 MG PO (20:41)
[2022-12-11] VITALS (9 sets, daily range): BP systolic 125–145; BP diastolic 76–97; PULSE 49–124; RESP 13–18; TEMP 36.2–36.6; O2SAT 96–97
[2022-12-11 07:01] LABS: Basophils Absolute Auto 0.1 K/mm3 (0.0-0.1); Basophils Percent Auto 0.5 % (0.2-1.2); Eosinophils Absolute Auto 0.4 K/mm3 (0-0.3); Eosinophils Percent Auto 3.5 % (0-4.4); Hematocrit 41.2 % (42.0-52.0); Hemoglobin 13.8 g/dL (14.0-18.0); Immature Granulocyte Absolute 0.08 K/mm3 (0.00-0.031); Immature Granulocyte Percent A 0.7 % (0-0.5); Lymphocytes Absolute Auto 3.28 K/mm3 (0.9-3.2); Lymphocytes Percent Auto 29.9 % (18.3-44.2); Mean Corpuscular HGB Conc 33.5 g/dl (32-36); Mean Corpuscular Hemoglobin 30.1 pg (26-34); Mean Platelet Volume 10.8 fl (7.4-10.4); Monocytes Absolute Auto 1.2 K/mm3 (0.1-0.6); Monocytes Percent Auto 11.2 % (2.6-8.5); Neutrophils Percent Auto 54.2 % (45.5-73.1); Platelet Count Result 340 k/mm3 (150-375); Red Blood Count 4.58 M/mm3 (4.6-6.20); Red Cell Distribution Width 17.2 % (11.5-14.5)
[2022-12-11 07:13] LABS: Alanine Aminotransferase 78 U/L (6-50); Albumin Level 3.5 g/dL (3.5-5.1); Alkaline Phosphatase 96 U/L (38-126); Anion Gap 4 mmol/L (8-16); Aspartate Amino Transferase 75 U/L (17-59); Bilirubin,Total 0.7 mg/dL (0.2-1.3); Blood Urea Nitrogen 14 mg/dL (9-20); Calcium 8.5 mg/dL (8.4-10.2); Carbon Dioxide 28 mmol/L (22-30); Chloride 106 mmol/L (98-107); Estimated CRCL calculation 63 ml/min; Estimated Glomerular Filt Rate > 60; Glucose 116 mg/dL (65-110); Potassium 4.5 mmol/L (3.4-5.0); Sodium 138 mmol/L (137-145)
[2022-12-11 07:42] LABS: Glucose Point of Care 102 mg/dl (65-105)
[2022-12-11] MEDS: INSULIN ASPART (*BKC) 100 UNITS/ML 8 UNITS SUB-Q ×2 (08:37→16:39)
[2022-12-11] MEDS: THERAPEUTIC MULTIVITAMINS/MINERALS TAB (*BKC) 1 TABLET PO (08:39)
[2022-12-11] MEDS: EMPAGLIFLOZIN 25 MG TABLET PO (08:39)
[2022-12-11] MEDS: DOCUSATE SODIUM 100 MG CAPSULE PO (08:39)
[2022-12-11] MEDS: ASPIRIN 81 MG ENTERIC TABLET PO (08:40)
[2022-12-11] MEDS: SERTRALINE HCL 25 MG TABLET PO (08:40)
[2022-12-11] MEDS: CYANOCOBALAMIN 1,000 MCG TABLET 1000 MCG PO (08:40)
[2022-12-11] MEDS: CHOLECALCIFEROL 1,000 UNITS TABLET 2000 UNITS PO (08:40)
[2022-12-11] MEDS: EZETIMIBE 10 MG TABLET PO (08:40)
[2022-12-11 11:36] LABS: Glucose Point of Care 200 mg/dl (65-105)
[2022-12-11] MEDS: INSULIN ASPART (*BKC) 100 UNITS/ML 6 UNITS SUB-Q (11:54)
--- NOTE | 2022-12-11 16:14 | PM.IMPN ---
Progress Note: A&P Assessment and Plan (1) Episode of syncope: Code(s): R55 - Syncope and collapse Status: Acute Assessment and Plan: Patient presents with syncopal episode. Doubt seizure since aware upon awaking and felt well. Possibly low blood sugar or possible from prolonged cardiac pause. Ozempic stopped. Metoprolol and Diltiazem also stopped. Echo showing EF 50-55%, mild prosthetic . Cardiology aware and are following along. Monitor on tele. PM being planned for Tuesday. Eliquis held (2) A-fib: Code(s): I48.91 - Unspecified atrial fibrillation Status: Acute Assessment and Plan: Patient with AFib/Flutter. He was having bradycardia and long pauses. Was on Diltiazem and Toprol both of which are held. No longer having pauses. Mild tachycardia now. Apnea link result noted. He will need outpatient split night sleep study. Monitor on tele. Eliquis on hold (3) Type 2 diabetes mellitus with hyperglycemia: Code(s): E11.65 - Type 2 diabetes mellitus with hyperglycemia Status: Acute Assessment and Plan: A1c 7.3. The patient's blood glucose was reviewed on 12/11 Glucose remains well controlled. Continue AccuCheks covering with sliding scale. Hypoglycemia protocol available as needed. Resume lantus at lower dose. Continue to follow (4) Coronary artery disease involving [place] coronary artery of [place] heart: Code(s): I25.10 - Atherosclerotic heart disease of [place] coronary artery without angina pectoris Status: Acute Assessment and Plan: Stable. Continue Lipitor and ASA. Betablocker off for now. (5) S/P TAVR (transcatheter aortic valve replacement): Code(s): Z95.2 - Presence of prosthetic heart valve Status: Acute Assessment and Plan: Echo showing well positioned valve. (6) Hypomagnesemia: Code(s): E83.42 - Hypomagnesemia Status: Acute Assessment and Plan: Mag 1.9 yesterday. Replacement ordered. Follow. (7) Elevated LFTs: Code(s): R79.89 - Other specified abnormal findings of blood chemistry Status: Acute Assessment and Plan: AST and ALT mildly elevated. This was noted earlier this year. Hepatitis panel negative. He is on Lipitor. 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 Levels improved today. Check RUQ US. Plan DVT prophylaxis with SCDs GI prophylaxis not indicated Code status full code Subjective Date/time seen: 12/11/22 16:14 Interval history: 72yo male with history of heart disease, AFib monitor comorbidities presented with syncopal episode thought to be secondary to hypoglycemia. No problems overnight. No CP or SOB. No lightheadedness Exam Narrative: AF 97.2 125/91 109 14 96% ra Gen - NARD Chest - CTA bilaterally, nml RR CV - irregularly irregular. Tele showing Afib/AFlutter with variable conduction. Abd - Soft, NT/ND, Positive BS Ext - No pedal edema Psych - Nml mood and affect Skin - Warm and dry Objective Data Vital Signs Vital Signs: Vital Signs - 24 hr 12/10/22 17:10 12/10/22 20:00 12/10/22 20:00 Temperature Pulse Rate 94 90 Respiratory Rate 16 Blood Pressure Pulse Oximetry 98 Oxygen Delivery Room Air Room Air 12/10/22 21:19 12/11/22 00:00 12/11/22 05:36 Temperature 96.9 F L 97.8 F Pulse Rate 47 L 86 49 L Respiratory Rate 13 13 Blood Pressure 147/72 H 145/76 H Pulse Oximetry 98 96 Oxygen Delivery 12/11/22 04:00 12/11/22 08:40 12/11/22 08:00 Temperature Pulse Rate 97 98 Respiratory Rate Blood Pressure Pulse Oximetry Oxygen Delivery Room Air 12/11/22 12:00 12/11/22 14:00 Temperature 97.2 F L Pulse Rate 124 H 109 H Respiratory Rate 14 Blood Pressure 125/91 H Pulse Oximetry 96 Oxygen Delivery Intake/Output Intake/Output: Intake & Output 12/08/22 12/09/22 12/10/22 12/11/22 23:59
[2022-12-11 16:30] LABS: Glucose Point of Care 175 mg/dl (65-105)
[2022-12-11] MEDS: ATORVASTATIN 40 MG TABLET 80 MG PO (20:44)
[2022-12-11 21:54] LABS: Glucose Point of Care 128 mg/dl (65-105)
[2022-12-12] VITALS (10 sets, daily range): BP systolic 120–168; BP diastolic 75–97; PULSE 94–115; RESP 14–20; TEMP 36.4–36.7; O2SAT 97–98
[2022-12-12 06:14] LABS: Basophils Absolute Auto 0.1 K/mm3 (0.0-0.1); Basophils Percent Auto 0.5 % (0.2-1.2); Eosinophils Absolute Auto 0.4 K/mm3 (0-0.3); Eosinophils Percent Auto 3.6 % (0-4.4); Hematocrit 43.2 % (42.0-52.0); Hemoglobin 13.9 g/dL (14.0-18.0); Immature Granulocyte Absolute 0.05 K/mm3 (0.00-0.031); Immature Granulocyte Percent A 0.4 % (0-0.5); Lymphocytes Absolute Auto 3.27 K/mm3 (0.9-3.2); Lymphocytes Percent Auto 26.4 % (18.3-44.2); Mean Corpuscular HGB Conc 32.2 g/dl (32-36); Mean Corpuscular Hemoglobin 29.5 pg (26-34); Mean Corpuscular Volume 91.7 fl (80-100); Mean Platelet Volume 10.7 fl (7.4-10.4); Monocytes Absolute Auto 1.3 K/mm3 (0.1-0.6); Monocytes Percent Auto 10.6 % (2.6-8.5); Neutrophils Absolute Auto 7.3 K/mm3 (1.3-6.7); Neutrophils Percent Auto 58.5 % (45.5-73.1); Nucleated Red Blood Cells Perc 0.2 % (0.0-0.2); Platelet Count Result 309 k/mm3 (150-375); Red Blood Count 4.71 M/mm3 (4.6-6.20); Red Cell Distribution Width 17.2 % (11.5-14.5); White Blood Count 12.4 K/mm3 (4.5-10.0)
[2022-12-12 06:28] LABS: Alanine Aminotransferase 74 U/L (6-50); Albumin Level 3.5 g/dL (3.5-5.1); Alkaline Phosphatase 106 U/L (38-126); Anion Gap 9 mmol/L (8-16); Aspartate Amino Transferase 72 U/L (17-59); Bilirubin,Total 0.6 mg/dL (0.2-1.3); Blood Urea Nitrogen 15 mg/dL (9-20); Calcium 8.6 mg/dL (8.4-10.2); Carbon Dioxide 26 mmol/L (22-30); Chloride 105 mmol/L (98-107); Estimated CRCL calculation 63 ml/min; Estimated Glomerular Filt Rate > 60; Glucose 136 mg/dL (65-110); Potassium 4.5 mmol/L (3.4-5.0); Sodium 140 mmol/L (137-145)
[2022-12-12 07:37] LABS: Glucose Point of Care 144 mg/dl (65-105)
[2022-12-12] MEDS: INSULIN ASPART (*BKC) 100 UNITS/ML 8 UNITS SUB-Q ×2 (08:06→16:47)
[2022-12-12] MEDS: DOCUSATE SODIUM 100 MG CAPSULE PO (08:09)
[2022-12-12] MEDS: EMPAGLIFLOZIN 25 MG TABLET PO (08:09)
[2022-12-12] MEDS: CHOLECALCIFEROL 1,000 UNITS TABLET 2000 UNITS PO (08:09)
[2022-12-12] MEDS: THERAPEUTIC MULTIVITAMINS/MINERALS TAB (*BKC) 1 TABLET PO (08:09)
[2022-12-12] MEDS: SERTRALINE HCL 25 MG TABLET PO (08:09)
[2022-12-12] MEDS: EZETIMIBE 10 MG TABLET PO (08:09)
[2022-12-12] MEDS: CYANOCOBALAMIN 1,000 MCG TABLET 1000 MCG PO (08:09)
[2022-12-12] MEDS: ASPIRIN 81 MG ENTERIC TABLET PO (08:09)
[2022-12-12 11:12] LABS: Glucose Point of Care 137 mg/dl (65-105)
[2022-12-12] MEDS: INSULIN ASPART (*BKC) 100 UNITS/ML 6 UNITS SUB-Q (11:43)
--- NOTE | 2022-12-12 13:38 | PM.IMPN ---
Progress Note: A&P Assessment and Plan (1) Episode of syncope: Code(s): R55 - Syncope and collapse Status: Acute Assessment and Plan: Patient presents with syncopal episode. Possibly low blood sugar or possible from prolonged cardiac pause. Ozempic stopped. Metoprolol and Diltiazem also stopped. Echo showing EF 50-55%, mild prosthetic . Cardiology aware and are following along. Monitor on tele. PM being planned for tomorrow. Eliquis held (2) A-fib: Code(s): I48.91 - Unspecified atrial fibrillation Status: Acute Assessment and Plan: Patient with AFib/Flutter. He was having bradycardia and long pauses. Was on Diltiazem and Toprol both of which are held. No longer having pauses. Mild tachycardia now. Apnea link result noted. He will need outpatient split night sleep study. Monitor on tele. Eliquis on hold (3) Type 2 diabetes mellitus with hyperglycemia: Code(s): E11.65 - Type 2 diabetes mellitus with hyperglycemia Status: Acute Assessment and Plan: A1c 7.3. The patient's blood glucose was reviewed on 12/12 Glucose remains well controlled. Continue AccuCheks covering with sliding scale. Hypoglycemia protocol available as needed. Continue to follow. Hold lantus since NPO tomorrow. (4) Coronary artery disease involving [place] coronary artery of [place] heart: Code(s): I25.10 - Atherosclerotic heart disease of [place] coronary artery without angina pectoris Status: Acute Assessment and Plan: Stable. Continue Lipitor and ASA. Betablocker off for now. (5) S/P TAVR (transcatheter aortic valve replacement): Code(s): Z95.2 - Presence of prosthetic heart valve Status: Acute Assessment and Plan: Echo showing well positioned valve. (6) Hypomagnesemia: Code(s): E83.42 - Hypomagnesemia Status: Acute Assessment and Plan: Mag low on admission. mag was replaced and level normal. Follow. (7) Elevated LFTs: Code(s): R79.89 - Other specified abnormal findings of blood chemistry Status: Acute Assessment and Plan: AST and ALT mildly elevated. This was noted earlier this year. Hepatitis panel negative. RUQ normal. He is on Lipitor. 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 Levels improved today. (8) Hypertensive heart disease without congestive heart failure: Code(s): I11.9 - Hypertensive heart disease without heart failure Status: Acute Assessment and Plan: Patient's blood pressure was reviewed on 12/12 Blood pressure elevated at times Will continue to monitor for now. Probable have beta-kameron resumed after pacemaker placement. Plan Mild leukocytosis - noted and stable in the 11-12 range. No fevers or symptoms of infection. Follow DVT prophylaxis with SCDs GI prophylaxis not indicated Code status full code Subjective Date/time seen: 12/12/22 13:38 Interval history: 72yo male with history of heart disease, AFib monitor comorbidities presented with syncopal episode thought to be secondary to hypoglycemia. No complaints. No problems overnight. Denies shortness of breath. No chest pain, palpitations or lightheadedness. Exam Narrative: AF 97.6 166/75 99 20 97% ra Gen - NARD Chest - CTA bilaterally, nml RR CV - irregularly irregular. Tele showing Afib/AFlutter with variable conduction. Abd - Soft, NT/ND, Positive BS Ext - No pedal edema Psych - Nml mood and affect Skin - Warm and dry Objective Data Vital Signs Vital Signs: Vital Signs - 24 hr 12/11/22 14:00 12/11/22 16:00 12/11/22 21:58 Temperature 97.2 F L 97.8 F Pulse Rate 109 H 100 54 L Respiratory Rate 14 18 Blood Pressure 125/91 H 130/97 H Pulse Oximetry 96 97 Oxygen Delivery 12/11/22 20:00 12/11/22 20:00 12/12/22 00:00 Temperature Pulse Rate 100 107 H Respiratory Rate Blood Pre
[2022-12-12 16:20] LABS: Glucose Point of Care 142 mg/dl (65-105)
[2022-12-12] MEDS: ATORVASTATIN 40 MG TABLET 80 MG PO (20:46)
[2022-12-12 20:53] LABS: Glucose Point of Care 139 mg/dl (65-105)
[2022-12-13] VITALS (15 sets, daily range): BP systolic 120–150; BP diastolic 81–105; PULSE 52–121; RESP 13–18; TEMP 35.9–36.4; O2SAT 94–99
[2022-12-13 07:15] LABS: Basophils Absolute Auto 0.1 K/mm3 (0.0-0.1); Basophils Percent Auto 0.6 % (0.2-1.2); Eosinophils Absolute Auto 0.4 K/mm3 (0-0.3); Eosinophils Percent Auto 3.4 % (0-4.4); Hematocrit 42.7 % (42.0-52.0); Hemoglobin 14.1 g/dL (14.0-18.0); Immature Granulocyte Absolute 0.06 K/mm3 (0.00-0.031); Immature Granulocyte Percent A 0.5 % (0-0.5); Lymphocytes Absolute Auto 2.98 K/mm3 (0.9-3.2); Lymphocytes Percent Auto 26.3 % (18.3-44.2); Mean Corpuscular Hemoglobin 29.8 pg (26-34); Mean Corpuscular Volume 90.3 fl (80-100); Mean Platelet Volume 11.1 fl (7.4-10.4); Monocytes Absolute Auto 1.2 K/mm3 (0.1-0.6); Monocytes Percent Auto 10.6 % (2.6-8.5); Neutrophils Absolute Auto 6.6 K/mm3 (1.3-6.7); Neutrophils Percent Auto 58.6 % (45.5-73.1); Nucleated Red Blood Cells Perc 0.2 % (0.0-0.2); Platelet Count Result 325 k/mm3 (150-375); Red Blood Count 4.73 M/mm3 (4.6-6.20); Red Cell Distribution Width 17.3 % (11.5-14.5); White Blood Count 11.3 K/mm3 (4.5-10.0)
[2022-12-13 07:25] LABS: Anion Gap 7 mmol/L (8-16); Blood Urea Nitrogen 18 mg/dL (9-20); Calcium 8.6 mg/dL (8.4-10.2); Carbon Dioxide 25 mmol/L (22-30); Chloride 106 mmol/L (98-107); Estimated CRCL calculation 71 ml/min; Estimated Glomerular Filt Rate > 60; Glucose 134 mg/dL (65-110); Potassium 4.5 mmol/L (3.4-5.0); Sodium 138 mmol/L (137-145)
[2022-12-13 07:29] LABS: Prothrombin Time 13.3 Seconds (11.1-14.7)
[2022-12-13 07:30] LABS: Partial Thromboplastin Time 26.7 SECONDS (22.3-36.8)
[2022-12-13 07:56] LABS: Glucose Point of Care 128 mg/dl (65-105)
--- NOTE | 2022-12-13 11:12 | WPDMODSED ---
Moderate Sedation Note-Pt Data Patient Data Diagnosis: Atrial fib / flutter with slow ventricular response and syncope Present Complaint: syncopal episode Procedure to be performed/Plan: implantation of permanent pacemaker Allergies Allergy/AdvReac Type Severity Reaction Status Date / Time contrast dye AdvReac Unknown Nausea Uncoded 12/06/22 21:10 Home Medications Medication Instructions Recorded Confirmed Type aspirin 81 mg tablet,delayed 81 mg PO DAILY 03/15/19 12/07/22 History release (Aspir-) ezetimibe 10 mg tablet (Zetia) 10 mg PO DAILY 03/15/19 12/07/22 History lancets 30 gauge (OneTouch Delica #100 ea 05/29/19 12/07/22 Rx Lancets) cogkmsua-tnlfytlb-trbll acid 400 1 tablet PO DAILY 12/26/19 12/07/22 History mcg-vit K 20 mcg-lycop 300 mcg tablet (One-A-Day Men's Multivitamin) cholecalciferol (vitamin D3) 50 50 mcg PO DAILY 08/28/20 12/07/22 History mcg (2,000 unit) capsule (D3-2000) docusate sodium 100 mg capsule 100 mg PO DAILY 08/28/20 12/07/22 History (Colace) mecobalamin (vitamin B12) 1,000 1,000 mcg PO DAILY 08/28/20 12/07/22 History mcg chewable tablet (B12 Active) blood-glucose meter (Guocool.comTouch #1 ea 10/22/21 12/07/22 Rx Verio Meter) pen needle, diabetic 31 gauge x #1,200 ea 03/02/22 12/07/22 Rx 5/16 empagliflozin 25 mg tablet 25 mg PO QAM #90 tabs 07/23/22 12/07/22 Rx (Jardiance) metoprolol succinate 100 mg 100 mg PO DAILY 07/29/22 12/07/22 History tablet,extended release 24 hr (Toprol XL) apixaban 5 mg tablet (Eliquis) 5 mg PO BID 09/29/22 12/08/22 History semaglutide 0.25 mg or 0.5 mg (2 0.25 mg (0.368 mL) subcut WEEKLY 09/29/22 12/07/22 Rx mg/3 mL) subcutaneous pen injector #3 mL (OzMedicalodges) blood sugar diagnostic (OneTouch #100 strips 10/19/22 12/07/22 Rx Verio test strips) insulin aspart U-100 100 unit/mL 22 unit (0.22 mL) subcut DAILY #15 11/12/22 12/07/22 Rx (3 mL) subcutaneous pen (Novolog mL FlexPen U-100 Insulin aspart) atorvastatin 80 mg tablet (Lipitor) 80 mg PO DAILY 12/06/22 12/07/22 History diltiazem HCl 180 mg capsule,24 360 mg PO DAILY 12/06/22 12/07/22 History hr,extended release insulin glargine 100 unit/mL (3 22 unit subcut QPM 12/06/22 12/07/22 History mL) subcutaneous pen (Lantus Solostar U-100 Insulin) sertraline 25 mg tablet (Zoloft) 25 mg PO DAILY 12/06/22 12/07/22 History metformin 500 mg tablet,extended 1,000 mg PO BID 12/07/22 12/07/22 History release 24 hr Current Medications: Active Medications Acetaminophen (Acetaminophen 325 Mg Tablet) 650 mg PO Q4H PRN PRN Reason: Mild Pain (1-3) or Fever Al Hydrox/Mg Hydrox/Simethicone (Mag Hydrox/Al Hydrox/Simeth 30 Ml Udc) 30 ml PO QID PRN PRN Reason: Dyspepsia Apixaban (Apixaban 5 Mg Tablet) 5 mg PO Q12HR [facility] Last Admin: 12/09/22 20:18 Dose: 5 mg Aspirin (Aspirin 81 Mg Enteric Tablet) 81 mg PO DAILY [facility] Last Admin: 12/12/22 08:09 Dose: 81 mg Atorvastatin Calcium (Atorvastatin 40 Mg Tablet) 80 mg PO QHS [facility] Last Admin: 12/12/22 20:46 Dose: 80 mg Cyanocobalamin (Cyanocobalamin 1,000 Mcg Tablet) 1,000 mcg PO DAILY [facility] Stop: 01/06/23 08:59 Last Admin: 12/12/22 08:09 Dose: 1,000 mcg Dextrose (Dextrose 50% 25 Gm/50 Ml Syringe) 12.5 gm IV PUSH PRN PRN; Protocol PRN Reason: Hypoglycemia Diltiazem HCl (Diltiazem Hcl Cd 180 Mg Cap.24hr) 360 mg PO DAILY [facility] Last Admin: 12/07/22 09:46 Dose: 360 mg Docusate Sodium (Docusate Sodium 100 Mg Capsule) 100 mg PO DAILY [facility] Last Admin: 12/12/22 08:09 Dose: 100 mg Ezetimibe (Ezetimibe 10 Mg Tablet) 10 mg PO DAILY [facility] Last Admin: 12/12/22 08:09 Dose: 10 mg Empagliflozin (Empagliflozin 25 Mg Tablet) [facility] [place] Last Admin: 12/12/22 08:09 Dose: 25 mg Glucagon (Glucagon For Inj 1 Mg Vial) 1 mg IM PRN PRN; Protocol PRN Reason: Hypoglycemia Glucose (Glucose Oral Gel 15 Gm Of Glucse In 37.5 Gm Tube) 15 gm PO PRN PRN; Protocol PRN Reason: Hypoglycemia Dextrose (Dextrose
[2022-12-13 11:58] LABS: Glucose Point of Care 118 mg/dl (65-105)
--- NOTE | 2022-12-13 15:24 | ECG_ITS ---
Measurements Intervals [place] Rate: 106 P: ND: 0 QRS: -58 QRSD: 166 T: -26 QT: 412 QTc: 548 Interpretive Statements ATRIAL FLUTTER/TACHYCARDIA WITH RAPID VENTRICULAR RESPONSE RIGHT BUNDLE BRANCH BLOCK [120+ ms QRS DURATION, UPRIGHT V1, 40+ ms S IN I/aVL/V4/V5/V6] LEFT ANTERIOR FASCICULAR BLOCK [QRS AXIS <= -45, QR IN I, RS IN II] POSSIBLE ANTERIOR MYOCARDIAL INFARCTION , OF INDETERMINATE AGE [30 ms Q WAVE IN V3/V4, OR R < 0.2 mV IN V4] ABNORMAL ECG COMPARED TO ECG 12/06/2022 21:03:41 LEFT ANTERIOR FASCICULAR BLOCK NOW PRESENT Electronically Signed On 12-13-2022 17:28:23 CDT by Jeff Christian M.D.
--- NOTE | 2022-12-13 15:26 | WPDCARDPROC ---
Cardiac Cath Procedure Note Date of procedure:: 12/13/22 Performing physician:: Shahbaz Beyer MD Indication:: syncope with atrial flutter with slow ventricular response Brief clinical history:: this is a 72-year-old man with a history of coronary artery disease with previous bypass grafting and also a history of aortic valve stenosis with a TAVR done last year. Presented to the hospital with syncopal episode was found to have significant asystolic pauses he has chronic atrial flutter and for this reason a pacemaker implant has been recommended Procedure Procedure performed:: implantation of permanent single-chamber pacemaker Sedation/Medication given:: fentanyl 50 mg Versed 2 mg case start time 2:38 p.m. case end time 3:22 p.m. sedation provided by Brad Adam RN, trained observer Access site:: left subclavian vein Estimated blood loss:: minimal Procedure note:: patient was brought to the cardiac catheterization lab in the postabsorptive state the left anterior chest wall was prepared and draped in the usual fashion. Anesthesia was provided inferior to the clavicle with 1% lidocaine infiltrated locally. about 1 in below the clavicle an incision was then made from the midclavicular line to the deltopectoral groove. Sharp and blunt dissection was used to separate the subcutaneous tissue to the level of the prepectoral fascia and electrocautery was used to provide cutaneous hemostasis. Using blunt dissection pacemaker pocket was created along the fascial plane inferior to the incision. This was packed with a antibiotic soaked 4 x 4. Following this attention was turned to venous access. Using the modified Seldinger technique the left subclavian vein was punctured and a J-tip guidewire was placed under fluoroscopic visualization to the level of the right atrium. A 6 Turkish SafeSheath was used to insert the pacemaker lead described below into the venous circulation to the level of right atrium. The sheath was peeled away leaving the lead in position. Following this the stylet was removed from the lead and I used a 3 cc syringe to form a J-tip stylet using this stylet to steer the lead through the right ventricle out to the pulmonary artery position. A straight stylet was placed into the lead it was placed into the right ventricular apical position. In this position there was good pacing and sensing performance but the impedance was high and so this was not felt to be a favorable position. The fixation screw was withdrawn and I then used the curved stylet to place the lead into the septum. Two different septal positions were used both with higher thresholds then was felt to be acceptable. For then I placed the lead lastly in the inferior portion of the RV just not quite out to the septal a position as it was before. In this position there was excellent sensing pacing and an impedance in this with a very good lead position. Following this the lead was secured to the base of the pocket using the suture sleeve and 2-0 silk ties. The retained sponge was removed from the pocket and the pocket was irrigated with antibiotic infused saline. Following this pacemaker generator described below was connected to the leads and the entire assembly was placed into the newly created pocket. This was then closed in layers using 3-0 Vicryl in an interrupted fashion for the subcutaneous tissue and 4-0 Vicryl in a running subcuticular fashion for the skin. The wound was dressed with an Aquacel dressing. Procedure was well tolerated and uncomplicated. Findings:: Patient received a Biotronik permanent pacemaker model Edora [id number]. serial number [id number]. device is programmed in the VVI /CLS mode lower rate limit of 60. the ventricular lead is a Biotronik screw-in bipolar lead model Solia [id number]. serial number [id number]. the R-waves are sensed at 7.4 mV threshold 0.5 volt at 0.4 millisecond impedance 702 Ohms. Conclus
--- NOTE | 2022-12-13 15:51 | PM.IMPN ---
Progress Note: A&P Assessment and Plan (1) Episode of syncope: Code(s): R55 - Syncope and collapse Status: Acute Assessment and Plan: Patient presents with syncopal episode. Possibly low blood sugar or possible from prolonged cardiac pause. Ozempic stopped. Metoprolol and Diltiazem also stopped. Echo showing EF 50-55%, mild prosthetic . Cardiology aware and are following along. Monitor on tele. PM placed. Routine PM care (2) A-fib: Code(s): I48.91 - Unspecified atrial fibrillation Status: Acute Assessment and Plan: Patient with AFib/Flutter. He was having bradycardia and long pauses. Was on Diltiazem and Toprol both of which are held. No longer having pauses. Mild tachycardia now. Apnea link result noted. He will need outpatient split night sleep study. Eliquis on hold. Resume Eliquis when okay with Cards Resume metoprolol at half dose (3) Type 2 diabetes mellitus with hyperglycemia: Code(s): E11.65 - Type 2 diabetes mellitus with hyperglycemia Status: Acute Assessment and Plan: A1c 7.3. The patient's blood glucose was reviewed on 12/13 Glucose remains well controlled. Continue AccuCheks covering with sliding scale. Hypoglycemia protocol available as needed. Continue to follow. (4) Coronary artery disease involving enterprise coronary artery of enterprise heart: Code(s): I25.10 - Atherosclerotic heart disease of [place] coronary artery without angina pectoris Status: Acute Assessment and Plan: Stable. Continue Lipitor and ASA. Resume Beta kameron when okay with others. (5) S/P TAVR (transcatheter aortic valve replacement): Code(s): Z95.2 - Presence of prosthetic heart valve Status: Acute Assessment and Plan: Echo showing well positioned valve. (6) Hypomagnesemia: Code(s): E83.42 - Hypomagnesemia Status: Acute Assessment and Plan: Mag low on admission. mag was replaced and level normal. Follow. (7) Elevated LFTs: Code(s): R79.89 - Other specified abnormal findings of blood chemistry Status: Acute Assessment and Plan: AST and ALT mildly elevated. This was noted earlier this year. Hepatitis panel negative. RUQ normal. He is on Lipitor. 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 Levels improved (8) Hypertensive heart disease without congestive heart failure: Code(s): I11.9 - Hypertensive heart disease without heart failure Status: Acute Assessment and Plan: Patient's blood pressure was reviewed on 12/13 Blood pressure controlled Will continue to monitor for now. As above Plan Mild leukocytosis - noted and stable in the 11-12 range. No fevers or symptoms of infection. Follow DVT prophylaxis with SCDs GI prophylaxis not indicated Code status full code Subjective Date/time seen: 12/13/22 15:51 Interval history: 72yo male with history of heart disease, AFib monitor comorbidities presented with syncopal episode thought to be secondary to hypoglycemia. Patient back from having PM placed. No CP or SOB. Only minimal pain to the left upper chest insicion site. Hadn't eaten since procedure at the time of my visit. Exam Narrative: AF 97.2 149/86 108 18 97% ra Gen - NARD Chest - clear anteriorly. Dressing in the left upper chest clean and dry. CV - irregularly irregular. Tele showing Afib/AFlutter with variable conduction. Abd - Soft, NT/ND, Positive BS Ext - No pedal edema Psych - Nml mood and affect Skin - Warm and dry Objective Data Vital Signs Vital Signs: Vital Signs - 24 hr 12/12/22 16:00 12/12/22 22:00 12/12/22 20:00 Temperature 98.0 F Pulse Rate 102 H 112 H 111 H Respiratory Rate 18 Blood Pressure 133/84 Pulse Oximetry 97 Oxygen Delivery 12/13/22 00:00 12/13/22 04:00 12/13/22 05:58 Temperature 97.2 F L Pulse Rate 104 H 10
[2022-12-13 16:59] LABS: Glucose Point of Care 113 mg/dl (65-105)
[2022-12-13] MEDS: EMPAGLIFLOZIN 25 MG TABLET PO (17:33)
[2022-12-13] MEDS: CHOLECALCIFEROL 1,000 UNITS TABLET 2000 UNITS PO (17:33)
[2022-12-13] MEDS: ASPIRIN 81 MG ENTERIC TABLET PO (17:33)
[2022-12-13] MEDS: SERTRALINE HCL 25 MG TABLET PO (17:33)
[2022-12-13] MEDS: EZETIMIBE 10 MG TABLET PO (17:33)
[2022-12-13] MEDS: CYANOCOBALAMIN 1,000 MCG TABLET 1000 MCG PO (17:33)
[2022-12-13] MEDS: THERAPEUTIC MULTIVITAMINS/MINERALS TAB (*BKC) 1 TABLET PO (17:34)
[2022-12-13] MEDS: DOCUSATE SODIUM 100 MG CAPSULE PO (17:34)
[2022-12-13] MEDS: SODIUM CHLORIDE 0.9% IV 1,000 ML 50 ML IV CONT (17:44)
[2022-12-13] MEDS: ATORVASTATIN 40 MG TABLET 80 MG PO (21:47)
[2022-12-13] MEDS: INSULIN GLARGINE (*BKC) 100 UNITS/ML 12 UNITS SUB-Q (21:48)
[2022-12-13] MEDS: ceFAZolin 1 GM/NS 50 ML 1 GM/50 ML BAG IVPB (21:49)
[2022-12-14] VITALS (10 sets, daily range): BP systolic 124–146; BP diastolic 87–96; PULSE 109–125; RESP 18; TEMP 36–36.5; O2SAT 94–96
[2022-12-14] MEDS: ceFAZolin 1 GM/NS 50 ML 1 GM/50 ML BAG IVPB (06:36)
[2022-12-14 07:03] LABS: Basophils Absolute Auto 0.1 K/mm3 (0.0-0.1); Basophils Percent Auto 0.4 % (0.2-1.2); Eosinophils Absolute Auto 0.4 K/mm3 (0-0.3); Eosinophils Percent Auto 3.3 % (0-4.4); Hematocrit 43.1 % (42.0-52.0); Immature Granulocyte Absolute 0.05 K/mm3 (0.00-0.031); Immature Granulocyte Percent A 0.4 % (0-0.5); Lymphocytes Absolute Auto 2.51 K/mm3 (0.9-3.2); Lymphocytes Percent Auto 22.1 % (18.3-44.2); Mean Corpuscular HGB Conc 32.5 g/dl (32-36); Mean Corpuscular Hemoglobin 29.5 pg (26-34); Mean Corpuscular Volume 90.9 fl (80-100); Mean Platelet Volume 11.6 fl (7.4-10.4); Monocytes Absolute Auto 1.3 K/mm3 (0.1-0.6); Monocytes Percent Auto 11.5 % (2.6-8.5); Neutrophils Absolute Auto 7.1 K/mm3 (1.3-6.7); Neutrophils Percent Auto 62.3 % (45.5-73.1); Platelet Count Result 328 k/mm3 (150-375); Red Blood Count 4.74 M/mm3 (4.6-6.20); Red Cell Distribution Width 17.5 % (11.5-14.5); White Blood Count 11.3 K/mm3 (4.5-10.0)
[2022-12-14 07:55] LABS: Glucose Point of Care 154 mg/dl (65-105)
[2022-12-14] MEDS: THERAPEUTIC MULTIVITAMINS/MINERALS TAB (*BKC) 1 TABLET PO (08:20)
[2022-12-14] MEDS: CYANOCOBALAMIN 1,000 MCG TABLET 1000 MCG PO (08:20)
[2022-12-14] MEDS: CHOLECALCIFEROL 1,000 UNITS TABLET 2000 UNITS PO (08:20)
[2022-12-14] MEDS: EMPAGLIFLOZIN 25 MG TABLET PO (08:20)
[2022-12-14] MEDS: ASPIRIN 81 MG ENTERIC TABLET PO (08:20)
[2022-12-14] MEDS: DOCUSATE SODIUM 100 MG CAPSULE PO (08:20)
[2022-12-14] MEDS: SERTRALINE HCL 25 MG TABLET PO (08:20)
[2022-12-14] MEDS: INSULIN ASPART (*BKC) 100 UNITS/ML 8 UNITS SUB-Q ×2 (08:21→16:45)
[2022-12-14] MEDS: EZETIMIBE 10 MG TABLET PO (08:45)
--- NOTE | 2022-12-14 10:38 | PCNWS ---
Weekly nutritional screen. Patient is tolerating current Heart healthy diet with adequate intake at 50-100% all meals. No nutritional needs at this time.
[2022-12-14 12:00] LABS: Glucose Point of Care 235 mg/dl (65-105)
[2022-12-14] MEDS: INSULIN ASPART (*BKC) 100 UNITS/ML SUB-Q (12:01)
[2022-12-14] MEDS: INSULIN ASPART (*BKC) 100 UNITS/ML 6 UNITS SUB-Q (12:02)
[2022-12-14 12:12] LABS: Glucose Point of Care 163 mg/dl (65-105)
[2022-12-14] MEDS: METOPROLOL SUCCINATE EXT REL 50 MG TABCR PO (12:32)
--- NOTE | 2022-12-14 12:41 | PM.IMPN ---
Progress Note: A&P Assessment and Plan (1) Episode of syncope: Code(s): R55 - Syncope and collapse Status: Acute Assessment and Plan: Patient presents with syncopal episode. Possibly low blood sugar or possible from prolonged cardiac pause. Ozempic stopped. Metoprolol and Diltiazem also stopped. Echo showing EF 50-55%, mild prosthetic . Cardiology aware and are following along. Monitor on tele. PM placed. Routine PM care (2) A-fib: Code(s): I48.91 - Unspecified atrial fibrillation Status: Acute Assessment and Plan: Patient with AFib/Flutter. He was having bradycardia and long pauses. Was on Diltiazem and Toprol both of which are held. No longer having pauses. Mild tachycardia now. Apnea link result noted. He will need outpatient split night sleep study. Eliquis on hold. Resume Eliquis when okay with Cards Resume metoprolol at half dose? (3) Type 2 diabetes mellitus with hyperglycemia: Code(s): E11.65 - Type 2 diabetes mellitus with hyperglycemia Status: Acute Assessment and Plan: A1c 7.3. The patient's glucose was reviewed on 12/14 Glucose remains mostly well controlled. Continue AccuCheks covering with sliding scale. Hypoglycemia protocol available as needed. Continue to follow. (4) Coronary artery disease involving [place] coronary artery of [place] heart: Code(s): I25.10 - Atherosclerotic heart disease of [place] coronary artery without angina pectoris Status: Acute Assessment and Plan: Stable. Continue Lipitor and ASA. Resume Beta kameron when okay with others. (5) S/P TAVR (transcatheter aortic valve replacement): Code(s): Z95.2 - Presence of prosthetic heart valve Status: Acute Assessment and Plan: Echo showing well positioned Ao valve. (6) Hypomagnesemia: Code(s): E83.42 - Hypomagnesemia Status: Acute Assessment and Plan: Mag low on admission. mag was replaced and level normal. Follow. (7) Elevated LFTs: Code(s): R79.89 - Other specified abnormal findings of blood chemistry Status: Acute Assessment and Plan: AST and ALT mildly elevated. This was noted earlier this year. Hepatitis panel negative. RUQ normal. He is on Lipitor. 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 Levels improved (8) Hypertensive heart disease without congestive heart failure: Code(s): I11.9 - Hypertensive heart disease without heart failure Status: Acute Assessment and Plan: Patient's blood pressure was reviewed on 12/14 Blood pressure reasonably well controlled Will continue to monitor for now. As above. Plan Mild leukocytosis - noted and stable in the 11-12 range. No fevers or symptoms of infection. Follow DVT prophylaxis with SCDs GI prophylaxis not indicated Code status full code Subjective Date/time seen: 12/14/22 12:41 Interval history: 72yo male with history of heart disease, AFib monitor comorbidities presented with syncopal episode thought to be secondary to hypoglycemia. Patient feels 'sore' in the left upper chest but pain tolerable. No CP or SOB. No lightheadedness Exam Narrative: AF 97.2 1146/92 125 18 96% ra Gen - NARD Chest - CTa bilaterally anteriorly. nml RR. Left upper chest dressing clean, dry and intact. CV - irregularly irregular. Tele showing Afib/AFlutter with tachycardia Abd - Soft, NT/ND, Positive BS Ext - No pedal edema. neurovascular intact left UE Psych - Nml mood and affect Skin - Warm and dry Objective Data Vital Signs Vital Signs: Vital Signs - 24 hr 12/13/22 15:39 12/13/22 15:45 12/13/22 16:00 Temperature Pulse Rate 94 106 H 112 H Respiratory Rate 15 13 14 Blood Pressure 132/90 150/98 H 120/105 H Pulse Oximetry 97 97 96 Oxygen Delivery Room Air Room Air Room Air 12/13/22 16:15 12/13/22 16:39 12/13/22 16:55 Tempera
--- NOTE | 2022-12-14 13:11 | PM.PNCARD ---
Progress Note: A&P Assessment and Plan (1) Episode of syncope: Code(s): R55 - Syncope and collapse Status: Acute Assessment and Plan: Admitted following a syncopal event at home. He is in atrial flutter with controlled ventricular response and did have some pauses noted on telemetry since admission. Majority of these are not concerning since he is in atrial flutter but did have a few that were as long as 8.5 seconds in duration. Underwent single chamber pacemaker placement yesterday afternoon. Stable today. PPM checked this morning and functioning normally. Will resume metoprolol today as he is tachycardic in the 120's-130's. He is asymptomatic. If CXR stable, he can be discharged later this afternoon. (2) Coronary artery disease involving [place] coronary artery of [place] heart: Code(s): I25.10 - Atherosclerotic heart disease of [place] coronary artery without angina pectoris Status: Acute Assessment and Plan: Stable. Continue ASA, statin (3) Atrial flutter: Code(s): I48.92 - Unspecified atrial flutter Status: Acute Assessment and Plan: Resume metoprolol at 50mg daily for now. Subjective Date/time seen: 12/14/22 13:11 Interval history: Cardiology follow up for syncope Feeling well and has not had any recurrent syncope or pre-syncope. No chest pain, shortness of breath, or palpitations. Date of service 12/09/2022: Feeling well this morning and has no complaints. Date of service 12/10/2022: Continues to feel well. No palpitations, chest pain, shortness of breath. Reviewed plan for PPM placement. Date of service 12/11/2022: Feeling well s/p PPM placement yesterday. Has some tenderness at incision site but no chest pain, shortness of breath. Review of Systems Review of Systems: All systems reviewed & are unremarkable except as noted in HPI and below Exam Const: General: comfortable, no acute distress, alert and awake Orientation/consciousness: patient oriented x3 HENMT: Head: normal to inspection Eyes: General: appearance normal, both eyes and all related structures Pupils: Equal, round and reactive pupils present Neck: Neck: normal visual inspection, supple and no JVD Carotids: normal carotid upstroke and no bruits Resp: Effort & Inspection: normal respiratory effort Auscultation: clear to auscultation bilaterally Cardio: Rate: tachycardic Rhythm: abnormal rhythm irregularly irregular Heart sounds: S1 normal heart sound present, S2 normal heart sound present and no murmurs GI: Auscultation: normal bowel sounds Skin: General skin exam: normal color Other: L pectoral incision sterile dressing intact with no signs of bleeding. No hematoma. Neuro: General: patient oriented x3 Cranial nerves: Yes Equal, round and reactive pupils present Extrem: General: normal to inspection Psych: Appearance: grossly normal Mental Status: mental status grossly normal Objective Data Vital Signs Vital Signs: Vital Signs - 24 hr 12/13/22 15:39 12/13/22 15:45 12/13/22 16:00 Temperature Pulse Rate 94 106 H 112 H Respiratory Rate 15 13 14 Blood Pressure 132/90 150/98 H 120/105 H Pulse Oximetry 97 97 96 Oxygen Delivery Room Air Room Air Room Air 12/13/22 16:15 12/13/22 16:39 12/13/22 16:55 Temperature 36.1 C L 35.9 C L Pulse Rate 101 H 52 L 118 H Respiratory Rate 18 16 16 Blood Pressure 132/81 127/83 134/97 H Pulse Oximetry 94 97 97 Oxygen Delivery Room Air 12/13/22 17:25 12/13/22 18:25 12/13/22 21:42 Temperature 36.1 C L 36.1 C L 36.4 C L Pulse Rate 117 H 59 L 121 H Respiratory Rate 17 17 18 Blood Pressure 135/81 147/94 H 136/95 H Pulse Oximetry 98 99 98 Oxygen Delivery 12/13/22 21:09 12/14/22 00:10 12/14/22 03:52 Temperature 36.4 C L 36.2 C L 36.1 C L Pulse Rate 121 H 116 H 116 H Respiratory Rate 18 18 18 Blood Pressure 136/95 H 139/96 H 138/95 H Pulse Oximetry 98 95 94 Oxygen Delivery
[2022-12-14] MEDS: METOPROLOL TARTRATE 50 MG TAB PO (15:36)
[2022-12-14 17:09] LABS: Glucose Point of Care 166 mg/dl (65-105)
--- NOTE | 2022-12-14 18:05 | PM.DS ---
DS: Admitting Diagnosis Discharge Date 12/14/22 Admitting Diagnosis Syncope DS: Discharge Diagnosis Discharge Diagnosis (1) Episode of syncope: Code(s): R55 - Syncope and collapse Status: Acute (2) A-fib: Code(s): I48.91 - Unspecified atrial fibrillation Status: Acute (3) Type 2 diabetes mellitus with hyperglycemia: Code(s): E11.65 - Type 2 diabetes mellitus with hyperglycemia Status: Acute (4) Coronary artery disease involving [place] coronary artery of [place] heart: Code(s): I25.10 - Atherosclerotic heart disease of [place] coronary artery without angina pectoris Status: Acute (5) S/P TAVR (transcatheter aortic valve replacement): Code(s): Z95.2 - Presence of prosthetic heart valve Status: Acute (6) Hypomagnesemia: Code(s): E83.42 - Hypomagnesemia Status: Acute Assessment and Plan: Mag low on admission. mag was replaced and level normal. Follow. (7) Elevated LFTs: Code(s): R79.89 - Other specified abnormal findings of blood chemistry Status: Acute (8) Hypertensive heart disease without congestive heart failure: Code(s): I11.9 - Hypertensive heart disease without heart failure Status: Acute DS: Summary Hospital Course Reason for hospitalization: 72yo male with history of heart disease, AFib monitor comorbidities presented with syncopal episode thought to be secondary to hypoglycemia. Please see H&P for details. Hospital Course: Patient presents with syncopal episode. Possibly related to low blood sugar or possible from prolonged cardiac pause. Ozempic stopped. Metoprolol and Diltiazem also stopped. Echo showing EF 50-55%, mild prosthetic . Patient with AFib/Flutter. He was having bradycardia and long pauses up to 7 seconds. Apnea link result noted. He will need outpatient split night sleep study. Eliquis held and patient went for pacemaker placement on 12/13/22. He tolerated the procedure well. He was having more tachycardia so metoprol resumed. A1c 7.3. The patient's glucose was monitored closely with AccuCheks covering with sliding scale.? Hypoglycemia protocol was available as needed. Glucose remained reasonably well controlled. AST and ALT mildly elevated. This was noted earlier this year. Hepatitis panel negative. RUQ normal. He is on Lipitor. 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 LFTs improved. Mild leukocytosis noted and stable in the 11-12 range. No fevers or symptoms of infection. He had clinical improvement. He was able to be discharged home on 12/14/22. Status at Discharge Cognitive/behavioral status at discharge: stable Time Spent with Patient Time attestation: Total time spent providing and/or coordinating discharge services: 35 minutes Time spent: Greater than 30 minutes Exam Narrative: AF 97.2 1146/92 125 18 96% ra Gen - NARD Chest - CTA bilaterally anteriorly. nml RR. Left upper chest dressing clean, dry and intact. CV - irregularly irregular. Tele showing Afib/AFlutter with tachycardia Abd - Soft, NT/ND, Positive BS Ext - No pedal edema. neurovascular intact left UE Psych - Nml mood and affect Skin - Warm and dry DS: Data Data Completed and Pending Labs on day of discharge: Labs from last 24 hours 12/14/22 12/14/22 12/14/22 16:31 11:52 07:44 WBC RBC Hgb Hct MCV MCH MCHC RDW Plt Count MPV Immature Gran % (Auto) Neut % (Auto) Lymph % (Auto) [place] % (Auto) Eos % (Auto) Baso % (Auto) Lymph # (Auto) [place] # (Auto) Eos # (Auto) Baso # (Auto) Abs Immat Gran (auto) Absolute Neuts (auto) Absolute Nucleated RBC Nucleated RBC % POC Capillary Glucose 166 H 235 H 154 H 12/14/22 12/13/22 06:19 20:28 WBC 11.3 H RBC 4.74 Hgb 14.0 Hct 43.1 MCV 90.9 MCH 29.5 MCHC 32.5 RDW 17.5 H Plt Count 328
== END 2022-12-14 18:50 | disposition home or self-care (01) | DRG 243 ==
LOC: ANHIMU 12-08 11:33 → ANH3MEDSUR 12-13 08:46 → ANHIMU 12-15 09:08
PROVIDERS: Specialist; Student in an Organized Health Care Education/Training Program; Admitting Provider Family Medicine; PCP Family Medicine; Visit Provider Internal Medicine
PROC: 0JH604Z Insertion of Pacemaker, Single Chamber into Chest Subcutaneous Tissue and Fascia, Open Approach (ICD-10-PCS; CPT 33210; principal; 2022-12-13 13:00)
DX: R55 Syncope and collapse (principal); I48.92 Unspecified atrial flutter; I48.0 Paroxysmal atrial fibrillation; I25.10 Atherosclerotic heart disease of native coronary artery without angina pectoris; I11.9 Hypertensive heart disease without heart failure; I35.0 Nonrheumatic aortic (valve) stenosis; E11.9 Type 2 diabetes mellitus without complications; E83.42 Hypomagnesemia; E78.00 Pure hypercholesterolemia, unspecified; G47.33 Obstructive sleep apnea (adult) (pediatric); R79.89 Other specified abnormal findings of blood chemistry; R11.2 Nausea with vomiting, unspecified; T38.3X5A Adverse effect of insulin and oral hypoglycemic [antidiabetic] drugs, initial encounter; Z79.01 Long term (current) use of anticoagulants; Z79.82 Long term (current) use of aspirin; Z95.2 Presence of prosthetic heart valve; Z90.81 Acquired absence of spleen; Z95.1 Presence of aortocoronary bypass graft; Z87.891 Personal history of nicotine dependence; Z90.411 Acquired partial absence of pancreas; Z86.73 Personal history of transient ischemic attack (TIA), and cerebral infarction without residual deficits
CPT/HCPCS: 33207; 36415; 71045; 71046; 76705; 80048; 80053; 80074; 82607; 82746; 82948; 83735; 84100; 84443; 84484; 85025; 85610; 85730; 93005; 93880; 94762; 96365; 96375; 96376; 97161; 97165; A9270; C1779; C1786; C8929; G0378; G0379; J0690; J1815; J2250; J3010; J3475; J7030; J7040; Q9957

== ENCOUNTER 2023-01-12 19:51 | Outpatient (CLI) | payer MEDICARE, SELFPAY ==
--- NOTE | 2023-02-01 23:49 | WPDSLEEPSTUD ---
Sleep Study Date of Study: 01/12/23 Ordering Provider: Wyatt King PA-C Interpreting Physician: Lenore Baptiste, Sleep Study Type: Split Polysomnogram Height: 1.75 m Weight: 89.358 kg Body Mass Index: 29.0 Neck Circumference (inches): 14.5 [place]: 5 Reason for Sleep Study History of ARNULFO. Unable to tolerate PAP Sleep History Patient is a 72 year old male with history of hypertension, type 2 diabetes, dyslipidemia, coronary artery disease s/p CABG, severe aortic stenosis s/p TAVR, atrial fibrillation, stroke, history of a neuroendocrine tumor s/p partial pancreatectomy and splenectomy, underwent a sleep study for re-evaluation of sleep apnea. Patient states he has had two sleep studies in the remote past that showed sleep apnea and he was unable to tolerate CPAP due to sinus congestion and difficulty breathing with PAP on.? He never awakens from sleep short of breath.? He frequently awakens at night with heartburn, belching or cough.? He occasionally snores and occasionally snores loud enough for others to complain. He occasionally has trouble sleeping when he has a cold. He never wakes up gasping for breath during the night. He never has breathing problems at night. He rarely sweats excessively at night. He frequently falls asleep during the day. He occasionally falls asleep involuntarily and never falls asleep while driving.? He rarely notices his heart pounding or beating irregularly during the night.? He never experiences loss of muscle tone with strong emotion. He never feels paralyzed on waking or falling asleep. ?He occasionally experiences vivid dreams upon waking or falling asleep. He never feels afraid of going to sleep. He rarely has nightmares. He occasionally recalls his dreams. He frequently has thoughts racing through his mind. He rarely feels sad or depressed. He occasionally feels anxiety or worry about things. He occasionally notices parts of his body jerk. He rarely kicks during the night. He never feels crawling or aching feelings in his legs. He rarely feels leg pain at night. He does not grind his teeth during sleep and never has morning jaw pain. He occasionally feels bothered by pain during the day and is never awakened by pain during the night. He rarely wakes up feeling stiff in the morning and never wakes up feeling sore and achy in the morning.? Normal bedtime is around midnight to 1am on the weekdays and same on the weekends, usually taking 1 to 2 hours to fall asleep. He typically gets about 4 to 6 hours of sleep per night. His wake up time is around 5am to 6am on the weekdays and same on the weekends. He typically wakes up around once per night and often does not fall back to sleep. He will go to the bathroom, get a drink, lay in bed and try to fall back to sleep. He watches television before falling asleep. He sometimes takes naps in the afternoon or evening and wakes feeling refreshed from a nap.? Habits:? Former tobacco smoker. Drinks about 1 to 2 caffeinated beverages per day. Occasional alcohol use. He does not use recreational substances.? [facility] Past Medical History Medical History A-fib Arthralgia Atrial fibrillation/flutter Coronary artery disease involving [place] coronary artery of [place] heart Episode of syncope Hyperkalemia Hypertensive heart disease without congestive heart failure Insomnia LLQ abdominal pain Neuroendocrine tumor of pancreas Nonrheumatic aortic (valve) stenosis Obstructive sleep apnea, adult Pancreatic lesion Pure hypercholesterolemia Stroke Tinea cruris Tremor Type 2 diabetes mellitus with hyperglycemia Surgical History Surgical History H/O splenectomy History of partial pancreatectomy Hx of CABG S/P cardiac pacemaker procedure S/P TAVR (transcatheter aortic valve replacement) 01/28/22 Family History Family History (Reviewed 02/01/23 @ 23:50 by Shyla
[2023-02-01 23:51] VITALS: BMI 29.0
== END 2023-01-13 10:49 | disposition home or self-care (01) ==
PROVIDERS: PCP Family Medicine; Visit Provider Physician Assistant
DX: G47.33 Obstructive sleep apnea (adult) (pediatric) (principal); I48.91 Unspecified atrial fibrillation
CPT/HCPCS: 95811

== ENCOUNTER 2023-02-07 12:41 | Outpatient (CLI) | payer MEDICARE, SELFPAY ==
--- NOTE | ~2023-02-07 | US_ITS ---
EXAMINATION: US carotid duplex BI DATE: 02/07/2023 13:26 INDICATION: Left carotid bruit. TECHNIQUE: Grayscale, color Doppler, and pulsed Doppler images of the cervical carotid arteries were obtained. The degree of vessel stenosis is placed in one of the following categories: normal, <50%, 5 0-69%, >=70% but less than near-occlusion, near-occlusion, or total occlusion. Note that percent sten osis relative to normal distal artery lumen diameter is indirectly measured from velocity measurement s as described by You, et al. Radiology 2003; 229:340-346. COMPARISON: Ultrasound 12/07/2022 FINDINGS: RIGHT: The right common carotid artery (CCA) peak systolic velocity (PSV) is 118 cm/s. The right internal ca rotid artery (ICA) PSV is 78 cm/s. The right ICA end-diastolic velocity (EDV) is 20 cm/s. The right I CA/CCA PSV ratio is 0.7. Grayscale and color Doppler images yield an estimate of <50% diameter reduct ion from plaque in the ICA. There is antegrade flow in the right vertebral artery. LEFT: The left CCA PSV is 65 cm/s. The left ICA PSV is 99 cm/s. The left ICA EDV is 30 cm/s. The left ICA/C CA PSV ratio is 1.5. Grayscale and color Doppler images yield an estimate of <50% diameter reduction from plaque in the ICA. There is antegrade flow in the left vertebral artery. IMPRESSION: 1. <50% stenosis in the right internal carotid artery. 2. <50% stenosis in the left internal carotid artery. Reviewed, dictated and finalized at location A. [employer]
== END 2023-02-07 12:42 | disposition home or self-care (01) ==
PROVIDERS: PCP Family Medicine; Visit Provider Internal Medicine Cardiovascular Disease
DX: I65.23 Occlusion and stenosis of bilateral carotid arteries (principal); R09.89 Other specified symptoms and signs involving the circulatory and respiratory systems
CPT/HCPCS: 93880

== ENCOUNTER 2023-05-23 00:30 | Inpatient (IN) | payer MEDICARE, SELFPAY ==
[2023-05-23] VITALS (10 sets, daily range): BP systolic 135–147; BP diastolic 73–82; PULSE 79–108; RESP 15–22; TEMP 35.6–36.6; O2SAT 96–98; BMI 30.3
--- NOTE | ~2023-05-23 | XR_ITS ---
XR chest 1V portable 05/24/2023 14:23 Indication: Leukocytosis Procedure: AP portable chest Comparison: Comparison to multiple prior studies sequentially, with oldest reviewed study dated 09/22/2015. Findings: Status post median sternotomy for CABG. Pacemaker lead is stable. There is prosthetic aorti c valve. No focal air space disease, pulmonary edema, pleural effusion or suspected pneumothorax. Impression: 1: No acute cardiopulmonary disease. Reviewed, dictated and finalized at location L. Impression: 1: No acute cardiopulmonary disease.
[2023-05-23 00:52] LABS: Basophils Absolute Auto 0.1 K/mm3 (0.0-0.1); Basophils Percent Auto 0.6 % (0.2-1.2); Eosinophils Absolute Auto 0.4 K/mm3 (0-0.3); Eosinophils Percent Auto 2.6 % (0-4.4); Hemoglobin 10.8 g/dL (14.0-18.0); Immature Granulocyte Absolute 0.06 K/mm3 (0.00-0.031); Immature Granulocyte Percent A 0.4 % (0-0.5); Lymphocytes Absolute Auto 3.62 K/mm3 (0.9-3.2); Lymphocytes Percent Auto 25.2 % (18.3-44.2); Mean Corpuscular HGB Conc 30.9 g/dl (32-36); Mean Corpuscular Hemoglobin 27.1 pg (26-34); Mean Corpuscular Volume 87.9 fl (80-100); Mean Platelet Volume 10.7 fl (7.4-10.4); Monocytes Absolute Auto 1.1 K/mm3 (0.1-0.6); Monocytes Percent Auto 7.6 % (2.6-8.5); Neutrophils Absolute Auto 9.1 K/mm3 (1.3-6.7); Neutrophils Percent Auto 63.6 % (45.5-73.1); Platelet Count Result 313 k/mm3 (150-375); Red Blood Count 3.98 M/mm3 (4.6-6.20); Red Cell Distribution Width 16.8 % (11.5-14.5); White Blood Count 14.4 K/mm3 (4.5-10.0)
[2023-05-23 01:10] LABS: Alanine Aminotransferase 18 U/L (6-50); Albumin Level 3.2 g/dL (3.5-5.1); Alkaline Phosphatase 99 U/L (38-126); Anion Gap 7 mmol/L (8-16); Aspartate Amino Transferase 25 U/L (17-59); Bilirubin,Total 0.5 mg/dL (0.2-1.3); Blood Urea Nitrogen 23 mg/dL (9-20); Calcium 8.5 mg/dL (8.4-10.2); Carbon Dioxide 23 mmol/L (22-30); Chloride 109 mmol/L (98-107); Estimated CRCL calculation 72 ml/min; Estimated Glomerular Filt Rate > 60; Glucose 221 mg/dL (65-110); Potassium 4.6 mmol/L (3.4-5.0); Sodium 139 mmol/L (137-145)
[2023-05-23 01:12] LABS: INR 1.2; Prothrombin Time 15.4 Seconds (11.1-14.7)
[2023-05-23 01:13] LABS: Partial Thromboplastin Time 28.3 Seconds (22.3-36.8)
--- NOTE | 2023-05-23 02:00 | ED.GENADULT ---
HPI - General Adult General Chief complaint: GI Bleed Stated complaint: gi bleed Time Seen by Provider: 05/23/23 00:45 History of Present Illness HPI narrative: Patient is a 72-year-old male who presents to the emergency department this evening complaining of bright red blood per rectum. Patient states that earlier today he started to have loose stools and diarrhea and shortly after started to pass bright red blood. Patient states that he has had multiple bowel movements since enable been bloody. Patient states that the bleeding covered the toilet bowl. Denies any melanotic stools. Patient denies any history of GI bleed. He currently is on Eliquis which he takes daily. Patient's last colonoscopy was approximately 5 years ago which showed a colon polyp, otherwise no acute process. Patient is currently denying any constipation, admits to history of hemorrhoids but states that he has not had one in a while. Patient denies any additional symptoms. There are no other modifying, alleviating, or precipitating factors at this time. Related Data Home Medications Medication Instructions Recorded Confirmed aspirin 81 mg tablet,delayed 81 mg PO DAILY 03/15/19 04/25/23 release (Aspir-) ezetimibe 10 mg tablet (Zetia) 10 mg PO DAILY 03/15/19 04/25/23 gabdoath-selwndml-hnwoo acid 400 1 tablet PO DAILY 12/26/19 04/25/23 mcg-vit K 20 mcg-lycop 300 mcg tablet (One-A-Day Men's Multivitamin) cholecalciferol (vitamin D3) 50 50 mcg PO DAILY 08/28/20 04/25/23 mcg (2,000 unit) capsule (D3-2000) docusate sodium 100 mg capsule 100 mg PO DAILY 08/28/20 04/25/23 (Colace) mecobalamin (vitamin B12) 1,000 1,000 mcg PO DAILY 08/28/20 04/25/23 mcg chewable tablet (B12 Active) metoprolol succinate 100 mg 100 mg PO DAILY 07/29/22 04/25/23 tablet,extended release 24 hr (Toprol XL) apixaban 5 mg tablet (Eliquis) 5 mg PO BID 09/29/22 04/25/23 metoprolol succinate 50 mg 50 mg PO DAILY 12/30/22 04/25/23 tablet,extended release 24 hr metformin 500 mg tablet,extended 50 mg .Route .COMPLEX 04/25/23 04/25/23 release 24 hr Allergies Allergy/AdvReac Type Severity Reaction Status Date / Time contrast dye AdvReac Unknown Nausea Uncoded 05/23/23 00:40 Review of Systems Review of Systems: All systems are reviewed and are negative unless stated otherwise in the HPI. [facility] Past Medical History Medical History A-fib Arthralgia Atrial fibrillation/flutter Coronary artery disease involving [place] coronary artery of [place] heart Episode of syncope Hyperkalemia Hypertensive heart disease without congestive heart failure Insomnia LLQ abdominal pain Neuroendocrine tumor of pancreas Nonrheumatic aortic (valve) stenosis Obstructive sleep apnea, adult Pancreatic lesion Pure hypercholesterolemia Stroke Tinea cruris Tremor Type 2 diabetes mellitus with hyperglycemia Surgical History Surgical History H/O splenectomy History of partial pancreatectomy Hx of CABG S/P cardiac pacemaker procedure S/P TAVR (transcatheter aortic valve replacement) 01/28/22 Family History Family History Sibling Family history of malignant neoplasm Family history of coronary artery disease Mother Family history of diabetes mellitus in first degree relative Father Family history of coronary artery disease Social History Social History Smoking packs per day: 0.5 Smoking cigarettes per day: 10.0 Years smoked: 1 Smoking pack-years: 0.50 Smoking status: Former smoker Tobacco type: cigarettes Second hand tobacco smoke exposure: Yes Smoking end date: 02/29/08 Alcohol intake: current Drinks per week: 1 Alcohol use details: likes a glass of wine Substance use: never Substance use type: does not use Lack of
[2023-05-23] MEDS: SODIUM CHLORIDE 0.9% IV 1,000 ML 100 ML IV CONT (05:23)
--- NOTE | 2023-05-23 06:15 | PCRCNOTE ---
Patient stated he does not wear a CPAP or Bipap machine at night and does not want to wear hospital unit.
[2023-05-23 06:33] LABS: Toxigenic C. Diff NEGATIVE (NEGATIVE)
--- NOTE | 2023-05-23 08:16 | P.PNIM_ITS ---
Progress Note: A&P Assessment and Plan (1) Rectal bleed: Code(s): K62.5 - Hemorrhage of anus and rectum Status: Acute Assessment and Plan: Reports loose stools and bright red blood per rectum * Hemoglobin is stable at 10.8 * Trend H&H * Fecal occult stool pending * GI consult and recommendations are appreciated * Holding Eliquis * NPO * NS at 100 mL per hour (2) Diarrhea: Code(s): R19.7 - Diarrhea, unspecified Status: Acute Assessment and Plan: Multiple loose stools reported * Likely secondary to GI bleeding * C diff negative * Leukocytosis 14 * Afebrile (3) Type 2 diabetes mellitus with hyperglycemia: Code(s): E11.65 - Type 2 diabetes mellitus with hyperglycemia Status: Acute Assessment and Plan: Last A1c 7.3% in 10/2022 * Repeat A1c this admission * Q.6 Accu-Cheks while NPO * Corrective low-dose SSI * Hypoglycemia protocol (4) Hypertensive heart disease without congestive heart failure: Code(s): I11.9 - Hypertensive heart disease without heart failure Status: Acute Assessment and Plan: Systolic 140s to 150s. On home agents metoprolol and losartan. * Currently holding losartan given possible active GI bleed * Will monitor blood pressures and resume losartan when appropriate. (5) A-fib: Code(s): I48.91 - Unspecified atrial fibrillation Status: Acute Assessment and Plan: Rate controlled on metoprolol succinate 150 mg daily. 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 * Holding Eliquis Subjective Date/time seen: 05/23/23 08:16 Interval history: This is a 72-year-old male with a past medical history of hypertension, diabetes, hyperlipidemia, pacemaker, CAD status post CABG, severe aortic stenosis status post TAVR, AFib on Eliquis, CVA, ARNULFO, neuroendocrine tumor status post partial pancreatectomy and splenectomy who presented to the ER with complaints of bright red blood per rectum. He reports having loose stools and diarrhea with presence of bright red blood. Objective Data Vital Signs Vital Signs: Vital Signs - 24 hr 05/23/23 00:33 05/23/23 03:06 05/23/23 04:35 Temperature 97.9 F 97 F L Pulse Rate 94 90 85 Respiratory Rate 15 15 18 Blood Pressure 136/82 140/82 144/73 H Pulse Oximetry 98 98 97 Oxygen Delivery Room Air 05/23/23 05:09 05/23/23 05:33 Temperature 97 F L Pulse Rate 85 Respiratory Rate 18 Blood Pressure 144/73 H Pulse Oximetry 97 Oxygen Delivery Room Air Intake/Output Intake/Output: Intake & Output 05/20/23 05/21/23 05/22/23 05/23/23 23:59 23:59 23:59 23:59 Intake Total 0 Output Total 150 Balance -150 Meds/Results Medications: Active Medications Generic Name Dose Route Start Last Admin Trade Name Freq PRN Reason Stop Dose Admin Sodium Chloride 1,000 mls @ 100 mls/hr 05/23/23 04:20 05/23/23 05:23 Normal Saline Iv IV CONT 05/23/23 14:19 100 mls/hr .Q10H STA Administration Labs Labs: Laboratory Results - last 24 hr 05/23/23 05/23/23 00:39 05:21 WBC 14.4 H RBC 3.98 L Hgb 10.8 L D Hct 35.0 L MCV 87.9
--- NOTE | 2023-05-23 08:16 | PM.IMPN ---
Progress Note: A&P Assessment and Plan (1) Rectal bleed: Code(s): K62.5 - Hemorrhage of anus and rectum Status: Acute Assessment and Plan: Reports loose stools and bright red blood per rectum Hemoglobin is stable at 10.8 Trend H&H Fecal occult stool pending GI consult and recommendations are appreciated Holding Eliquis NPO NS at 100 mL per hour (2) Diarrhea: Code(s): R19.7 - Diarrhea, unspecified Status: Acute Assessment and Plan: Multiple loose stools reported Likely secondary to GI bleeding C diff negative Leukocytosis 14 Afebrile (3) Type 2 diabetes mellitus with hyperglycemia: Code(s): E11.65 - Type 2 diabetes mellitus with hyperglycemia Status: Acute Assessment and Plan: Last A1c 7.3% in 10/2022 Repeat A1c this admission Q.6 Accu-Cheks while NPO Corrective low-dose SSI Hypoglycemia protocol (4) Hypertensive heart disease without congestive heart failure: Code(s): I11.9 - Hypertensive heart disease without heart failure Status: Acute Assessment and Plan: Systolic 140s to 150s. On home agents metoprolol and losartan. Currently holding losartan given possible active GI bleed Will monitor blood pressures and resume losartan when appropriate. (5) A-fib: Code(s): I48.91 - Unspecified atrial fibrillation Status: Acute Assessment and Plan: Rate controlled on metoprolol succinate 150 mg daily. 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 Holding Eliquis Subjective Date/time seen: 05/23/23 08:16 Interval history: This is a 72-year-old male with a past medical history of hypertension, diabetes, hyperlipidemia, pacemaker, CAD status post CABG, severe aortic stenosis status post TAVR, AFib on Eliquis, CVA, ARNULFO, neuroendocrine tumor status post partial pancreatectomy and splenectomy who presented to the ER with complaints of bright red blood per rectum. He reports having loose stools and diarrhea with presence of bright red blood. Objective Data Vital Signs Vital Signs: Vital Signs - 24 hr 05/23/23 00:33 05/23/23 03:06 05/23/23 04:35 Temperature 97.9 F 97 F L Pulse Rate 94 90 85 Respiratory Rate 15 15 18 Blood Pressure 136/82 140/82 144/73 H Pulse Oximetry 98 98 97 Oxygen Delivery Room Air 05/23/23 05:09 05/23/23 05:33 Temperature 97 F L Pulse Rate 85 Respiratory Rate 18 Blood Pressure 144/73 H Pulse Oximetry 97 Oxygen Delivery Room Air Intake/Output Intake/Output: Intake & Output 05/20/23 05/21/23 05/22/23 05/23/23 23:59 23:59 23:59 23:59 Intake Total 0 Output Total 150 Balance -150 Meds/Results Medications: Active Medications Generic Name Dose Route Start Last Admin Trade Name Mustaphaq PRN Reason Stop Dose Admin Sodium Chloride 1,000 mls @ 100 mls/hr 05/23/23 04:20 05/23/23 05:23 Normal Saline Iv IV CONT 05/23/23 14:19 100 mls/hr .Q10H STA Administration Labs Labs: Laboratory Results - last 24 hr 05/23/23 05/23/23 00:39 05:21 WBC 14.4 H RBC 3.98 L Hgb 10.8 L D Hct 35.0 L MCV 87.9 MCH 27.1 MCHC 30.9 L RDW 16.8 H Plt Count 313 MPV 10.7 H Immature Gran % (Auto) 0.4 Neut % (Auto) 63.6 Lymph % (Auto) 25.2 [place] % (Auto) 7.6 Eos % (Auto) 2.6 Baso % (Auto) 0.6 Lymph # (Auto) 3.62 H [place] # (Auto) 1.1 H Eos # (Auto) 0.4 H Baso # (Auto) 0.1 Abs Immat Gran (auto) 0.06 H Absolute Neuts (auto) 9.1 H Absolute Nucleated RBC 0.000 Nucleated RBC % 0.0 PT 15.4 H INR 1.2 APTT 28.3 Sodium 139 Potassium 4.6 Chloride 109 H Carbon Dioxide 23 Anion Gap 7 L BUN 23 H Creatinine 0.90 Estim Creat Clear Calc 72 Estimated GFR > 60 Glucose 221 H Calcium 8.5 Total Bilirubin 0.5 AST 25 ALT 18 Alkaline Phosphatase 99 Total Protein 6.0 L Albumin 3.2 L C. difficile (PCR) Negative Blood Type AB Positive Antibody Screen Negative
[2023-05-23 08:42] LABS: Add Urine Microscopic? NO; Appearance Urine Clear (Clear); Color Urine Yellow (Yellow); Glucose Urine UA 3+ mg/dL (Negative); Protein Urine Negative (Negative); Specific Grav Ur 1.015 (1.001-1.035)
[2023-05-23 08:43] LABS: Bilirubin Urine Negative (Negative); Blood Urine Negative (Negative); Ketones Urine Negative (Negative); Leukocyte Esterase Ur Negative LEU/UL (Negative); Nitrate Urine Negative (Negative); Urobilinogen Urine 0.2 mg/dL (<2.0)
[2023-05-23 09:04] LABS: IFOB Positive Control Positive; Immunochemical Fecal Occult Bl Positive (N)
[2023-05-23] MEDS: SERTRALINE HCL 25 MG TABLET PO (10:10)
[2023-05-23] MEDS: EZETIMIBE 10 MG TABLET PO (10:10)
[2023-05-23] MEDS: METOPROLOL SUCCINATE EXT REL 50 MG TABCR PO (10:10)
[2023-05-23] MEDS: METOPROLOL SUCCINATE EXT REL 100 MG TABCR PO (10:11)
[2023-05-23 11:30] LABS: Glucose Point of Care 135 mg/dl (65-105)
--- NOTE | 2023-05-23 12:18 | WPDGICN ---
Assessment and Plan Assessment and plan (1) LLQ abdominal pain: Code(s): R10.32 - Left lower quadrant pain <JEFFERSON Kerr - Last Filed: 05/23/23 16:40> Status: Acute <JEFFERSON Kerr - Last Filed: 05/23/23 16:40> Assessment and Plan: new onset of left lower quadrant pain that is progressively getting worse CT scan of A/P to r/o diverticulitis. <JEFFERSON Kerr - Last Filed: 05/23/23 16:40> new onset of left lower quadrant pain that is progressively getting worse this is already improved and pain now is almost gone after he used restroom here with diarrhea of 24 hours, ? colitis he is agreeable to have colonoscopy tomorrow <Pete Jay MD - Last Filed: 05/23/23 15:22> (2) Rectal bleed: Code(s): K62.5 - Hemorrhage of anus and rectum <JEFFERSON Krer - Last Filed: 05/23/23 16:40> Status: Acute <JEFFERSON Kerr - Last Filed: 05/23/23 16:40> (3) Acute blood loss anemia: Code(s): D62 - Acute posthemorrhagic anemia <JEFFERSON Kerr - Last Filed: 05/23/23 16:40> Status: Acute <JEFFERSON Kerr - Last Filed: 05/23/23 16:40> Assessment and Plan: monitor for more signs of bleeding <Pete Jay MD - Last Filed: 05/23/23 15:22> (4) Diarrhea: Code(s): R19.7 - Diarrhea, unspecified <JEFFERSON Kerr - Last Filed: 05/23/23 16:40> Status: Acute <JEFFERSON Kerr - Last Filed: 05/23/23 16:40> Assessment and Plan: ? 2/2 to GI bleed. <JEFFERSON Kerr - Last Filed: 05/23/23 16:40> already improved colonoscopy in am <Pete Jay MD - Last Filed: 05/23/23 15:22> (5) GI bleed: Code(s): K92.2 - Gastrointestinal hemorrhage, unspecified <JEFFERSON Kerr - Last Filed: 05/23/23 16:40> Status: Acute <JEFFERSON Kerr - Last Filed: 05/23/23 16:40> Assessment and Plan: H&H <JEFFERSON Kerr - Last Filed: 05/23/23 16:40> GI Consult Note Consult date/time: 05/23/23 12:18 <JEFFERSON Kerr - Last Filed: 05/23/23 16:40> Reason for consult: GI bleed <JEFFERSON Kerr - Last Filed: 05/23/23 16:40> HPI: Chadd Rodriguez is a 72 year old male with past medical history of hypertension, diabetes, hyperlipidemia, pacemaker, CAD status post CABG, severe aortic stenosis status post TAVR, AFib on Eliquis, CVA, ARNULFO, neuroendocrine tumor status post partial pancreatectomy and splenectomy (2019) who was admitted to [facility] for complaints of bright red blood per rectum that started yesterday. patient reports passing multiple large amounts bright red blood with and without bowel movements that started yesterday. His stools are were also loose. he was found to be anemic with a hemoglobin of 10.8. His hgb was normal in November. Stool occult positive. C diff stool were obtained due to diarrhea which was negative. He takes colace 100 mg daily for constipation and this controls his constipation well. He denies any change in bowels, diarrhea or constipation, fevers, nausea or vomiting prior to arrival at ER yesterday. No sick contacts. He reports pain in left lower quadrant, this was mild yesterday but seems to be worse today. describes it as crampy in nature with no radiation of pain. rates pain as 5 to 6 on pain scale. He takes Eliquis 5 mg b.i.d. for history of AFib. Currently this is being held. He denies any NSaid use. <JEFFERSON Kerr - Last Filed: 05/23/23 16:40> Review of Systems Constitutional: Constitutional: Denies headache(s) and Denies weakness <Pete Jay MD - Last Filed: 05/23/23 15:22> Eyes: Eyes: Denies blurry vision <Pete Jay MD - Last Filed: 05/23/23 15:22> ENT: Reports Normal hearing present, Denies headache(s) and Denies neck pain <Pete Jay MD - Last Filed: 05/23/23 15:22> Car
--- NOTE | 2023-05-23 14:47 | PC.NURSE ---
This RN spoke with Dr. Clemons confirming that the patient will go for a colonoscopy tomorrow. MD also stated that the patient is doing much better at this time and MD does not feel that the previously ordered CT scan is necessary. This RN has cancelled the scan.
--- NOTE | 2023-05-23 16:06 | PM.IMHP ---
H&P: HPI History of Present Illness Date/Time: 05/23/23 16:06 Chief Complaint: Blood per rectum Narrative: This is a 72-year-old male with a past medical history of hypertension, diabetes, hyperlipidemia, pacemaker, CAD status post CABG, severe aortic stenosis status post TAVR, AFib on Eliquis, CVA, ARNULFO, neuroendocrine tumor status post partial pancreatectomy and splenectomy who presented to the ER with complaints of bright red blood per rectum. He provides the history along with his daughter, Carole. He reports having loose stools and diarrhea with presence of bright red blood that started yesterday 05/21 and continued throughout the day. He estimates about 10-12 loose stools that were bright red. He reports dizziness and almost passing out prior to arrival of EMS. He also reports having abdominal pain to the left lower quadrant that is tender to palpation. He also states that he has a sore throat and it feels like ?swallowing acid? whenever he swallows. He denies headache, nasal congestion, fever, chills, chest pain, shortness of breath, nausea, or vomiting. He states that he drinks alcohol rarely but on occasion and is a former tobacco smoker from back in college. He is independent with all ADLs and lives with this son Santi. In the ER he was found have a leukocytosis of 14, hemoglobin 10.8, and positive occult blood. He was negative for C diff. he was admitted for further workup of GI bleed with GI consult for possible colonoscopy. Review of Systems Review of Systems: All systems reviewed & are unremarkable except as noted in HPI and below PMFSH Past Medical History Medical History A-fib Acute blood loss anemia Arthralgia Atrial fibrillation/flutter Coronary artery disease involving [place] coronary artery of [place] heart Episode of syncope Hyperkalemia Hypertensive heart disease without congestive heart failure Insomnia LLQ abdominal pain Neuroendocrine tumor of pancreas Nonrheumatic aortic (valve) stenosis Obstructive sleep apnea, adult Pancreatic lesion Pure hypercholesterolemia Stroke Tinea cruris Tremor Type 2 diabetes mellitus with hyperglycemia Surgical History Surgical History H/O splenectomy History of partial pancreatectomy Hx of CABG S/P cardiac pacemaker procedure S/P TAVR (transcatheter aortic valve replacement) 01/28/22 Family History Family History Sibling Family history of malignant neoplasm Family history of coronary artery disease Mother Family history of diabetes mellitus in first degree relative Father Family history of coronary artery disease Social History Social History Smoking packs per day: 0.5 Smoking cigarettes per day: 10.0 Years smoked: 1 Smoking pack-years: 0.50 Smoking status: Former smoker Tobacco type: cigarettes Second hand tobacco smoke exposure: Yes Smoking end date: 02/29/08 Alcohol intake: current Drinks per week: 1 Alcohol use details: likes a glass of wine Substance use: never Substance use type: does not use Do You Feel Safe in your Home?: Yes Lack of Transportation: No Lack of Food: Never True Current Housing: I Have Housing Concerned About Future Housing: No Difficulty Paying Gas/Electric Bills: No Difficulty Paying for Meds: No Currently Unemployed: No Education: Don't Know Difficulty w/ Childcare or Family Care: No Living arrangements: with family Occupation/Education: retired Gender identity (if verbalized by the patient): Male Sexual Orientation (if Verbalized by the Patient): Straight or Heterosexual Spiritual care concerns: No Comments He has 4 children. Bobby who is his POA, Santi who he lives with, Delta and Carole. Meds Home Medications and Allergies Home Medications
--- NOTE | 2023-05-23 16:33 | ECG_ITS ---
Measurements Intervals Tower Rate: 82 P: 173 IA: 195 QRS: -53 QRSD: 144 T: -15 QT: 449 QTc: 528 Interpretive Statements ATRIAL FLUTTER/TACHYCARDIA RIGHT BUNDLE BRANCH BLOCK LEFT ANTERIOR FASCICULAR BLOCK VOLTAGE CRITERIA FOR LVH BASELINE ARTIFACT- I, III, V3 ABNORMAL ECG COMPARED TO ECG 12/13/2022 15:46:26 HEART RATE HAS DECREASED Electronically Signed On 05-23-2023 17:03:15 CDT by Philip Zheng D.O.
[2023-05-23 16:35] LABS: Glucose Point of Care 140 mg/dl (65-105)
[2023-05-23] MEDS: BISACODYL 5 MG TABLET EC 20 MG PO (17:11)
[2023-05-23] MEDS: polyethylene glycoL 3350 238 GM BOTTLE PO (17:12)
[2023-05-23] MEDS: SODIUM CHLORIDE 0.9% IV 1,000 ML 75 ML IV CONT ×2 (17:20→23:25)
[2023-05-23] MEDS: PIPERACILLN/TAZ 3.375GM/NS50ML 3.375 GM/50 ML BAG IVPB ×2 (17:20→23:23)
[2023-05-23] MEDS: PANTOPRAZOLE SODIUM IV 40 MG VIAL IV PUSH ×2 (17:21→20:16)
[2023-05-23 18:31] LABS: Basophils Absolute Auto 0.1 K/mm3 (0.0-0.1); Basophils Percent Auto 0.7 % (0.2-1.2); Eosinophils Absolute Auto 0.5 K/mm3 (0-0.3); Eosinophils Percent Auto 3.2 % (0-4.4); Hematocrit 29.6 % (42.0-52.0); Hemoglobin 9.2 g/dL (14.0-18.0); Immature Granulocyte Absolute 0.06 K/mm3 (0.00-0.031); Immature Granulocyte Percent A 0.4 % (0-0.5); Lymphocytes Absolute Auto 3.54 K/mm3 (0.9-3.2); Lymphocytes Percent Auto 24.3 % (18.3-44.2); Mean Corpuscular HGB Conc 31.1 g/dl (32-36); Mean Corpuscular Hemoglobin 27.2 pg (26-34); Mean Corpuscular Volume 87.6 fl (80-100); Mean Platelet Volume 11.1 fl (7.4-10.4); Monocytes Absolute Auto 1.2 K/mm3 (0.1-0.6); Monocytes Percent Auto 8.4 % (2.6-8.5); Neutrophils Absolute Auto 9.2 K/mm3 (1.3-6.7); Nucleated Red Blood Cells Perc 0.1 % (0.0-0.2); Platelet Count Result 283 k/mm3 (150-375); Red Blood Count 3.38 M/mm3 (4.6-6.20); Red Cell Distribution Width 17.1 % (11.5-14.5); White Blood Count 14.6 K/mm3 (4.5-10.0)
[2023-05-23 18:32] LABS: Alanine Aminotransferase 17 U/L (6-50); Alkaline Phosphatase 78 U/L (38-126); Anion Gap 4 mmol/L (8-16); Aspartate Amino Transferase 23 U/L (17-59); Bilirubin,Total 0.6 mg/dL (0.2-1.3); Blood Urea Nitrogen 19 mg/dL (9-20); Carbon Dioxide 25 mmol/L (22-30); Chloride 109 mmol/L (98-107); Estimated CRCL calculation 90 ml/min; Estimated Glomerular Filt Rate > 60; Glucose 209 mg/dL (65-110); Potassium 4.3 mmol/L (3.4-5.0); Sodium 138 mmol/L (137-145)
[2023-05-23] MEDS: ATORVASTATIN 40 MG TABLET 80 MG PO (20:16)
[2023-05-23 20:34] LABS: Glucose Point of Care 250 mg/dl (65-105)
[2023-05-23] MEDS: INSULIN ASPART (*BKC) 100 UNITS/ML SUB-Q (20:44)
[2023-05-23] MEDS: MAGNESIUM CITRATE 300 ML BTL PO (23:22)
[2023-05-24] VITALS (9 sets, daily range): BP systolic 99–147; BP diastolic 56–103; PULSE 76–104; RESP 16–23; TEMP 35.7–36.1; O2SAT 97–100
[2023-05-24] MEDS: PIPERACILLN/TAZ 3.375GM/NS50ML 3.375 GM/50 ML BAG IVPB (06:02)
[2023-05-24 07:10] LABS: Basophils Absolute Auto 0.1 K/mm3 (0.0-0.1); Basophils Percent Auto 0.7 % (0.2-1.2); Eosinophils Absolute Auto 0.7 K/mm3 (0-0.3); Eosinophils Percent Auto 4.9 % (0-4.4); Hematocrit 29.5 % (42.0-52.0); Hemoglobin 8.9 g/dL (14.0-18.0); Immature Granulocyte Absolute 0.07 K/mm3 (0.00-0.031); Immature Granulocyte Percent A 0.5 % (0-0.5); Lymphocytes Absolute Auto 3.39 K/mm3 (0.9-3.2); Mean Corpuscular HGB Conc 30.2 g/dl (32-36); Mean Corpuscular Volume 89.4 fl (80-100); Mean Platelet Volume 11.1 fl (7.4-10.4); Monocytes Absolute Auto 1.4 K/mm3 (0.1-0.6); Monocytes Percent Auto 9.9 % (2.6-8.5); Neutrophils Absolute Auto 8.5 K/mm3 (1.3-6.7); Nucleated Red Blood Cells Perc 0.1 % (0.0-0.2); Platelet Count Result 298 k/mm3 (150-375); Red Cell Distribution Width 17.2 % (11.5-14.5); White Blood Count 14.1 K/mm3 (4.5-10.0)
--- NOTE | 2023-05-24 07:18 | P.PNIM_ITS ---
Progress Note: A&P Assessment and Plan (1) GI bleed: Qualifiers: GI bleed type/associated pathology: unspecified gastrointestinal hemorrhage type Qualified Code(s): K92.2 - Gastrointestinal hemorrhage, unspecified Code(s): K92.2 - Gastrointestinal hemorrhage, unspecified Status: Acute Assessment and Plan: Reports of rectal bleeding * His baseline hemoglobin is 14 g per dL * H&H on admission is 10.8 and 35% * He also has a leukocytosis of 14 * Gentle IV fluids at NS 75 * Start on Zosyn for possible colitis * Started on Protonix 40 mg IV push * Hemoccult-positive * Monitor daily labs * Repeat CBC this afternoon * Transfuse for hemoglobin less than 7 grams/deciliter * GI has been consulted and recommendations are appreciated * He is scheduled for a colonoscopy 05/2305/24/23: * Hgb is downtrending 10.8-->9.2-->8.9 * Going for a colonoscopy today * Protonix 40 mg BID (2) Type 2 diabetes mellitus with hyperglycemia: Qualifiers: Diabetes mellitus buttermaker continuous churn insulin use: with buttermaker continuous churn use Qualified Code(s): E11.65 - Type 2 diabetes mellitus with hyperglycemia; Z79.4 - [facility] (current) use of insulin Code(s): E11.65 - Type 2 diabetes mellitus with hyperglycemia Status: Acute Assessment and Plan: Hemoglobin A1c 7.3% 10/2022 * Home regimen metformin 500 mg daily. Currently on hold. * Repeating hemoglobin A1c this admission * Holding home agents * Q.6 Accu-Cheks while NPO * Hypoglycemic protocol * Low-dose SSI 05/24/23: * Blood glucose ranging 135 to 250 * Repeat A1c is 7% * Can consider increasing SSI (3) Hypertensive heart disease without congestive heart failure: Code(s): I11.9 - Hypertensive heart disease without heart failure Status: Acute Assessment and Plan: Stable at this time. * Blood pressure 135/80, heart rate 82 * On losartan, metoprolol 150 mg daily, aspirin 81 mg * Restarted metoprolol but holding losartan and aspirin for now * Monitor blood pressures 05/24/23: * Blood pressure stable 127/75, pulse 97 (4) Coronary artery disease involving [place] coronary artery of [place] heart: Code(s): I25.10 - Atherosclerotic heart disease of [place] coronary artery without angina pectoris Status: Acute Assessment and Plan: See above (5) A-fib: Code(s): I48.91 - Unspecified atrial fibrillation Status: Acute Assessment and Plan: Rate controlled on metoprolol succinate 150 mg daily and anticoagulation with Eliquis * Restarted metoprolol * Holding Eliquis given GI bleed * Heart rate running between 108 and 80 beats per minute * EKG ordered 05/24/23: * EKG showed atrial flutter with a rate of 82 in the left anterior fascicular block Subjective Date/time seen: 05/24/23 07:18 Interval history: This is a 72-year-old male with a past medical history of hypertension, diabetes, hyperlipidemia, pacemaker, CAD status post CABG, severe aortic stenosis status post TAVR, AFib on Eliquis, CVA, ARNULFO, 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 He provides the history along with his daughter, Carole. He reports having loose stools and diarrhea with presence of bright red blood that started yesterday 05/21 and continued throughout the day.? He estimates about 10-12 loose stools that were bright red.? He reports dizziness and almost passing out prior to arrival of EMS.? He also reports having abdominal pain to the left lower quadrant that i
--- NOTE | 2023-05-24 07:18 | PM.IMPN ---
Progress Note: A&P Assessment and Plan (1) GI bleed: Qualifiers: GI bleed type/associated pathology: unspecified gastrointestinal hemorrhage type Qualified Code(s): K92.2 - Gastrointestinal hemorrhage, unspecified Code(s): K92.2 - Gastrointestinal hemorrhage, unspecified Status: Acute Assessment and Plan: Reports of rectal bleeding His baseline hemoglobin is 14 g per dL H&H on admission is 10.8 and 35% He also has a leukocytosis of 14 Gentle IV fluids at NS 75 Start on Zosyn for possible colitis Started on Protonix 40 mg IV push Hemoccult-positive Monitor daily labs Repeat CBC this afternoon Transfuse for hemoglobin less than 7 grams/deciliter GI has been consulted and recommendations are appreciated He is scheduled for a colonoscopy 05/2305/24/23: Hgb is downtrending 10.8-->9.2-->8.9 Going for a colonoscopy today Protonix 40 mg BID (2) Type 2 diabetes mellitus with hyperglycemia: Qualifiers: Diabetes mellitus terminal makeup operator insulin use: with custodial use Qualified Code(s): E11.65 - Type 2 diabetes mellitus with hyperglycemia; Z79.4 - [facility] (current) use of insulin Code(s): E11.65 - Type 2 diabetes mellitus with hyperglycemia Status: Acute Assessment and Plan: Hemoglobin A1c 7.3% 10/2022 Home regimen metformin 500 mg daily. Currently on hold. Repeating hemoglobin A1c this admission Holding home agents Q.6 Accu-Cheks while NPO Hypoglycemic protocol Low-dose SSI 05/24/23: Blood glucose ranging 135 to 250 Repeat A1c is 7% Can consider increasing SSI (3) Hypertensive heart disease without congestive heart failure: Code(s): I11.9 - Hypertensive heart disease without heart failure Status: Acute Assessment and Plan: Stable at this time. Blood pressure 135/80, heart rate 82 On losartan, metoprolol 150 mg daily, aspirin 81 mg Restarted metoprolol but holding losartan and aspirin for now Monitor blood pressures 05/24/23: Blood pressure stable 127/75, pulse 97 (4) Coronary artery disease involving [place] coronary artery of [place] heart: Code(s): I25.10 - Atherosclerotic heart disease of [place] coronary artery without angina pectoris Status: Acute Assessment and Plan: See above (5) A-fib: Code(s): I48.91 - Unspecified atrial fibrillation Status: Acute Assessment and Plan: Rate controlled on metoprolol succinate 150 mg daily and anticoagulation with Eliquis Restarted metoprolol Holding Eliquis given GI bleed Heart rate running between 108 and 80 beats per minute EKG ordered 05/24/23: EKG showed atrial flutter with a rate of 82 in the left anterior fascicular block Subjective Date/time seen: 05/24/23 07:18 Interval history: This is a 72-year-old male with a past medical history of hypertension, diabetes, hyperlipidemia, pacemaker, CAD status post CABG, severe aortic stenosis status post TAVR, AFib on Eliquis, CVA, ARNULFO, 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 He provides the history along with his daughter, Carole. He reports having loose stools and diarrhea with presence of bright red blood that started yesterday 05/21 and continued throughout the day.? He estimates about 10-12 loose stools that were bright red.? He reports dizziness and almost passing out prior to arrival of EMS.? He also reports having abdominal pain to the left lower quadrant that is tender to palpation.? He also states that he has a sore throat and it feels like ?swallowing acid? whenever he swallows.? He denies headache, nasal congestion, fever, chills, chest pain, shortness of breath, nausea, or vomiting.? He states that he drinks alcohol rarely but on occasion and is a former tobacco smoker from back in college.? He is independent with all ADLs and lives with this son Santi. In the ER he was fo
[2023-05-24 07:21] LABS: INR 1.1; Partial Thromboplastin Time 25.9 Seconds (22.3-36.8); Prothrombin Time 14.4 Seconds (11.1-14.7)
[2023-05-24 07:36] LABS: Glucose Point of Care 169 mg/dl (65-105)
[2023-05-24 07:43] LABS: Alanine Aminotransferase 20 U/L (6-50); Alkaline Phosphatase 80 U/L (38-126); Anion Gap 5 mmol/L (8-16); Aspartate Amino Transferase 30 U/L (17-59); Bilirubin,Total 0.6 mg/dL (0.2-1.3); Blood Urea Nitrogen 13 mg/dL (9-20); Calcium 7.6 mg/dL (8.4-10.2); Carbon Dioxide 21 mmol/L (22-30); Chloride 111 mmol/L (98-107); Estimated CRCL calculation 103 ml/min; Estimated Glomerular Filt Rate > 60; Glucose 139 mg/dL (65-110); Potassium 3.9 mmol/L (3.4-5.0); Sodium 137 mmol/L (137-145)
[2023-05-24] MEDS: EZETIMIBE 10 MG TABLET PO (08:47)
[2023-05-24] MEDS: METOPROLOL SUCCINATE EXT REL 100 MG TABCR PO (08:47)
[2023-05-24] MEDS: PANTOPRAZOLE SODIUM IV 40 MG VIAL IV PUSH (08:48)
[2023-05-24] MEDS: SERTRALINE HCL 25 MG TABLET PO (08:48)
[2023-05-24] MEDS: METOPROLOL SUCCINATE EXT REL 50 MG TABCR PO (08:48)
[2023-05-24 10:08] LABS: Glucose Point of Care 139 mg/dl (65-105)
[2023-05-24] MEDS: LACTATED RINGERS 1,000 ML 150 ML IV CONT (10:21)
--- NOTE | 2023-05-24 10:36 | WPDANESEPPF ---
Anes - Initial Pre Proc Eval Procedure: Operation Date: 05/24/23 15:00 Proposed Procedures p Colonoscopy - Pete Jay MD Date/Time: 05/24/23 10:36 Surgeon: Larry Polanco MD Pre Op Diagnosis: rectal bleed Patient Data Age: 72 Gender: M Height: 1.75 m Weight: 93.1 kg Last Vital Signs Temp 97.0 F L 05/24/23 10:15 Pulse 81 05/24/23 10:15 Resp 16 05/24/23 10:15 BP 139/81 05/24/23 10:15 Pulse Ox 98 05/24/23 10:15 O2 Del Method Room Air 05/24/23 10:15 FiO2 21 05/23/23 08:43 Allergies Allergy/AdvReac Type Severity Reaction Status Date / Time No Known Allergies Allergy Verified 05/24/23 10:04 Home Medications Medication Instructions Recorded Confirmed Type ezetimibe 10 mg tablet (Zetia) 10 mg PO DAILY 03/15/19 05/23/23 History lancets 30 gauge (OneTouch Delica #100 ea 05/29/19 05/23/23 Rx Lancets) ikayjybs-ygrdhxhg-equgr acid 400 1 tablet PO DAILY 12/26/19 05/23/23 History mcg-vit K 20 mcg-lycop 300 mcg tablet (One-A-Day Men's Multivitamin) cholecalciferol (vitamin D3) 50 50 mcg PO DAILY 08/28/20 05/23/23 History mcg (2,000 unit) capsule (D3-2000) docusate sodium 100 mg capsule 100 mg PO DAILY 08/28/20 05/23/23 History (Colace) mecobalamin (vitamin B12) 1,000 1,000 mcg PO DAILY 08/28/20 05/23/23 History mcg chewable tablet (B12 Active) blood-glucose meter (OneTouch #1 ea 10/22/21 05/23/23 Rx Verio Meter) pen needle, diabetic 31 gauge x #1,200 ea 03/02/22 05/23/23 Rx /16 metoprolol succinate 100 mg 100 mg PO DAILY 07/29/22 05/23/23 History tablet,extended release 24 hr (Toprol XL) apixaban 5 mg tablet (Eliquis) 5 mg PO BID 09/29/22 05/23/23 History blood sugar diagnostic (OneTouch #100 strips 10/19/22 05/23/23 Rx Verio test strips) metoprolol succinate 50 mg 50 mg PO DAILY 12/30/22 05/23/23 History tablet,extended release 24 hr empagliflozin 25 mg tablet 25 mg PO QAM #90 tabs 01/24/23 05/23/23 Rx (Jardiance) sertraline 25 mg tablet (Zoloft) 25 mg PO DAILY #100 tabs 02/02/23 05/23/23 Rx losartan 100 mg tablet 100 mg PO DAILY #90 tabs 04/25/23 05/23/23 Rx metformin 500 mg tablet,extended 500 mg PO DAILY 04/25/23 05/23/23 History release 24 hr aspirin 81 mg tablet,delayed 81 mg PO DAILY 05/23/23 05/23/23 History release atorvastatin 80 mg tablet (Lipitor) 80 mg PO HS 05/23/23 05/23/23 History insulin aspart U-100 100 unit/mL 8 unit subcut AC 05/23/23 05/23/23 History (3 mL) subcutaneous pen (Novolog FlexPen U-100 Insulin aspart) zolpidem 10 mg tablet (Ambien) 5 mg PO QHS PRN Insomnia 05/23/23 05/23/23 History Laboratory Tests 05/23/23 05/23/23 05/23/23 00:39 11:22 16:24 WBC RBC Hgb Hct MCV MCH MCHC RDW Plt Count MPV Immature Gran % (Auto) Neut % (Auto) Lymph % (Auto) [place] % (Auto) Eos % (Auto) Baso % (Auto) Lymph # (Auto) [place] # (Auto) Eos # (Auto) Baso # (Auto) Abs Immat Gran (auto) Absolute Neuts (auto) Absolute Nucleated RBC Nucleated RBC % PT INR APTT Sodium Potassium Chloride Carbon Dioxide Anion Gap BUN Creatinine Estim Creat Clear Calc Estimated GFR Glucose POC Capillary Glucose 135 H mg/dl 140 H mg/dl (65-105) (65-105) Hemoglobin A1c 7.0 H % (<5.7) Calcium Total Bilirubin AST ALT Alkaline Phosphatase Total Protein Albumin 05/23/23 05/23/23 05/23/23 17:41 17:51 20:32 WBC 14.6 H K/mm3 (4.5-10.0)
[2023-05-24 11:08] LABS: Glucose Point of Care 147 mg/dl (65-105)
[2023-05-24 13:00] LABS: Glucose Point of Care 192 mg/dl (65-105)
[2023-05-24 13:54] LABS: Iron 30 ug/dL (49-181)
[2023-05-24 13:59] LABS: CRP < 0.5 mg/dL (<1.0)
[2023-05-24 14:05] LABS: Percent Iron Saturation 10 % (20-50)
[2023-05-24 15:01] LABS: Folic Acid 19.4 ng/mL (2.76->20)
--- NOTE | 2023-05-26 11:59 | PC.NURSE ---
No Group Strept A on throat culture.
--- NOTE | 2023-06-01 06:49 | P.DS_ITS ---
DS: Admitting Diagnosis Discharge Date 05/24/23 Admitting Diagnosis Gi bleed DS: Discharge Diagnosis Discharge Diagnosis (1) GI bleed: Qualifiers: GI bleed type/associated pathology: unspecified gastrointestinal hemorrhage type Qualified Code(s): K92.2 - Gastrointestinal hemorrhage, unspecified Code(s): K92.2 - Gastrointestinal hemorrhage, unspecified Status: Acute (2) Type 2 diabetes mellitus with hyperglycemia: Qualifiers: Diabetes mellitus long lines operator insulin use: with fci use Qualified Code(s): E11.65 - Type 2 diabetes mellitus with hyperglycemia; Z79.4 - [facility] (current) use of insulin Code(s): E11.65 - Type 2 diabetes mellitus with hyperglycemia Status: Acute (3) Hypertensive heart disease without congestive heart failure: Code(s): I11.9 - Hypertensive heart disease without heart failure Status: Acute (4) Coronary artery disease involving [place] coronary artery of [place] heart: Code(s): I25.10 - Atherosclerotic heart disease of [place] coronary artery without angina pectoris Status: Acute (5) A-fib: Code(s): I48.91 - Unspecified atrial fibrillation Status: Acute Plan (1) GI bleed: ?Qualifiers: ?GI bleed type/associated pathology:?unspecified gastrointestinal hemorrhage type? Qualified Code(s):?K92.2 - Gastrointestinal hemorrhage, unspecified ?Code(s): K92.2 - Gastrointestinal hemorrhage, unspecified ?Status:?Acute ?Assessment and Plan: Reports of rectal bleeding * His baseline hemoglobin is 14 g per dL * H&H on admission is 10.8 and 35% * He also has a leukocytosis of 14 * Gentle IV fluids at NS 75 * Start on Zosyn for possible colitis * Started on Protonix 40 mg IV push * Hemoccult-positive * Monitor daily labs * Repeat CBC this afternoon * Transfuse for hemoglobin less than 7 grams/deciliter * GI has been consulted and recommendations are appreciated * He is scheduled for a colonoscopy 05/23(2) Type 2 diabetes mellitus with hyperglycemia: ?Qualifiers: ?Diabetes mellitus fci insulin use:?with long lines operator use? Qualified Code(s):?E11.65 - Type 2 diabetes mellitus with hyperglycemia; Z79.4 - [facility] (current) use of insulin ?Code(s): E11.65 - Type 2 diabetes mellitus with hyperglycemia ?Status:?Acute ?Assessment and Plan: Hemoglobin A1c 7.3% 10/2022 * Repeating hemoglobin A1c this admission * Holding home agents * Q.6 Accu-Cheks while NPO * Hypoglycemic protocol * Low-dose SSI(3) Hypertensive heart disease without congestive heart failure: ?Code(s): I11.9 - Hypertensive heart disease without heart failure ?Status:?Acute ?Assessment and Plan: Stable at this time. * Blood pressure 135/80, heart rate 82 * On losartan, metoprolol 150 mg daily, aspirin 81 mg * Restarted metoprolol but holding losartan and aspirin for now * Monitor blood pressures(4) Coronary artery disease involving [place] coronary artery of [place] heart: ?Code(s): I25.10 - Atherosclerotic heart disease of [place] coronary artery without angina pectoris ?Status:?Acute ?Assessment and Plan: See above (5) A-fib: ?Code(s): I48.91 - Unspecified atrial fibrillation ?Status:?Acute ?Assessment and Plan: Rate controlled on metoprolol succinate 150 mg daily and anticoagulation with Eliquis * Restarted metoprolol * Holding Eliquis given GI bleed * Heart rate running between 108 and 80 beats per minute * EKG ordered DS: Summary Hospital Course Ho
--- NOTE | 2023-06-01 06:49 | PM.DS ---
DS: Admitting Diagnosis Discharge Date 05/24/23 Admitting Diagnosis Gi bleed DS: Discharge Diagnosis Discharge Diagnosis (1) GI bleed: Qualifiers: GI bleed type/associated pathology: unspecified gastrointestinal hemorrhage type Qualified Code(s): K92.2 - Gastrointestinal hemorrhage, unspecified Code(s): K92.2 - Gastrointestinal hemorrhage, unspecified Status: Acute (2) Type 2 diabetes mellitus with hyperglycemia: Qualifiers: Diabetes mellitus ferry terminal supervisor insulin use: with residential use Qualified Code(s): E11.65 - Type 2 diabetes mellitus with hyperglycemia; Z79.4 - halfway (current) use of insulin Code(s): E11.65 - Type 2 diabetes mellitus with hyperglycemia Status: Acute (3) Hypertensive heart disease without congestive heart failure: Code(s): I11.9 - Hypertensive heart disease without heart failure Status: Acute (4) Coronary artery disease involving [place] coronary artery of [place] heart: Code(s): I25.10 - Atherosclerotic heart disease of [place] coronary artery without angina pectoris Status: Acute (5) A-fib: Code(s): I48.91 - Unspecified atrial fibrillation Status: Acute Plan (1) GI bleed: ?Qualifiers: ?GI bleed type/associated pathology:?unspecified gastrointestinal hemorrhage type? Qualified Code(s):?K92.2 - Gastrointestinal hemorrhage, unspecified ?Code(s): K92.2 - Gastrointestinal hemorrhage, unspecified ?Status:?Acute ?Assessment and Plan: Reports of rectal bleeding His baseline hemoglobin is 14 g per dL H&H on admission is 10.8 and 35% He also has a leukocytosis of 14 Gentle IV fluids at NS 75 Start on Zosyn for possible colitis Started on Protonix 40 mg IV push Hemoccult-positive Monitor daily labs Repeat CBC this afternoon Transfuse for hemoglobin less than 7 grams/deciliter GI has been consulted and recommendations are appreciated He is scheduled for a colonoscopy 05/23(2) Type 2 diabetes mellitus with hyperglycemia: ?Qualifiers: ?Diabetes mellitus ferry terminal supervisor insulin use:?with residential use? Qualified Code(s):?E11.65 - Type 2 diabetes mellitus with hyperglycemia; Z79.4 - ferry terminal supervisor (current) use of insulin ?Code(s): E11.65 - Type 2 diabetes mellitus with hyperglycemia ?Status:?Acute ?Assessment and Plan: Hemoglobin A1c 7.3% 10/2022 Repeating hemoglobin A1c this admission Holding home agents Q.6 Accu-Cheks while NPO Hypoglycemic protocol Low-dose SSI(3) Hypertensive heart disease without congestive heart failure: ?Code(s): I11.9 - Hypertensive heart disease without heart failure ?Status:?Acute ?Assessment and Plan: Stable at this time. Blood pressure 135/80, heart rate 82 On losartan, metoprolol 150 mg daily, aspirin 81 mg Restarted metoprolol but holding losartan and aspirin for now Monitor blood pressures(4) Coronary artery disease involving [place] coronary artery of [place] heart: ?Code(s): I25.10 - Atherosclerotic heart disease of [place] coronary artery without angina pectoris ?Status:?Acute ?Assessment and Plan: See above (5) A-fib: ?Code(s): I48.91 - Unspecified atrial fibrillation ?Status:?Acute ?Assessment and Plan: Rate controlled on metoprolol succinate 150 mg daily and anticoagulation with Eliquis Restarted metoprolol Holding Eliquis given GI bleed Heart rate running between 108 and 80 beats per minute EKG ordered DS: Summary Hospital Course Hospital Course: This is a 72-year-old male with a past medical history of hypertension, diabetes, hyperlipidemia, pacemaker, CAD status post CABG, severe aortic stenosis status post TAVR, AFib on Eliquis, CVA, ARNULFO, 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 He provides the history along with his daughter, Carole. He reports having loose stools and diarr
== END 2023-05-24 16:14 | disposition home or self-care (01) | DRG 378 ==
LOC: ANHED 03:19 → ANH3MEDSUR 04:15
PROVIDERS: Internal Medicine Gastroenterology; Admitting Provider Internal Medicine; Emergency Provider Emergency Medicine; PCP Family Medicine; Visit Provider Nurse Practitioner Acute Care
PROC: 0DJD8ZZ Inspection of Lower Intestinal Tract, Via Natural or Artificial Opening Endoscopic (ICD-10-PCS; CPT 45378; principal; 2023-05-24 15:00)
DX: K57.31 Diverticulosis of large intestine without perforation or abscess with bleeding (principal); D62 Acute posthemorrhagic anemia; K63.5 Polyp of colon; K64.8 Other hemorrhoids; E11.65 Type 2 diabetes mellitus with hyperglycemia; I25.10 Atherosclerotic heart disease of native coronary artery without angina pectoris; E78.5 Hyperlipidemia, unspecified; I11.0 Hypertensive heart disease with heart failure; I50.9 Heart failure, unspecified; G47.33 Obstructive sleep apnea (adult) (pediatric); I35.0 Nonrheumatic aortic (valve) stenosis; I48.91 Unspecified atrial fibrillation; Z79.4 Long term (current) use of insulin; Z95.1 Presence of aortocoronary bypass graft; Z79.01 Long term (current) use of anticoagulants; Z95.2 Presence of prosthetic heart valve; Z79.82 Long term (current) use of aspirin; Z95.0 Presence of cardiac pacemaker; Z87.891 Personal history of nicotine dependence; Z90.81 Acquired absence of spleen; Z95.5 Presence of coronary angioplasty implant and graft
CPT/HCPCS: 36415; 71045; 80053; 81003; 82274; 82607; 82746; 82948; 83036; 83540; 83550; 85025; 85610; 85730; 86140; 86850; 86900; 86901; 87040; 87081; 87493; 88305; 93005; 99285; A9270; C9113; J1815; J2543; J2704; J7030; J7120

== ENCOUNTER 2023-05-27 11:35 | Outpatient (CLI) | payer MEDICARE, SELFPAY ==
[2023-05-27 12:22] LABS: Basophils Absolute Auto 0.1 K/mm3 (0.0-0.1); Basophils Percent Auto 0.6 % (0.2-1.2); Eosinophils Absolute Auto 0.7 K/mm3 (0-0.3); Eosinophils Percent Auto 5.6 % (0-4.4); Hematocrit 28.6 % (42.0-52.0); Hemoglobin 8.6 g/dL (14.0-18.0); Immature Granulocyte Absolute 0.07 K/mm3 (0.00-0.031); Immature Granulocyte Percent A 0.6 % (0-0.5); Lymphocytes Absolute Auto 2.42 K/mm3 (0.9-3.2); Lymphocytes Percent Auto 19.4 % (18.3-44.2); Mean Corpuscular HGB Conc 30.1 g/dl (32-36); Mean Corpuscular Hemoglobin 26.6 pg (26-34); Mean Corpuscular Volume 88.5 fl (80-100); Mean Platelet Volume 10.6 fl (7.4-10.4); Monocytes Absolute Auto 1.2 K/mm3 (0.1-0.6); Monocytes Percent Auto 9.4 % (2.6-8.5); Neutrophils Absolute Auto 8.1 K/mm3 (1.3-6.7); Neutrophils Percent Auto 64.4 % (45.5-73.1); Nucleated Red Blood Cells Perc 1.6 % (0.0-0.2); Platelet Count Result 376 k/mm3 (150-375); Red Blood Count 3.23 M/mm3 (4.6-6.20); Red Cell Distribution Width 16.9 % (11.5-14.5); White Blood Count 12.5 K/mm3 (4.5-10.0)
== END 2023-05-27 11:36 | disposition home or self-care (01) ==
LOC: ANHLAB 11:38
PROVIDERS: PCP Family Medicine; Visit Provider Nurse Practitioner Acute Care
DX: K92.2 Gastrointestinal hemorrhage, unspecified (principal)
CPT/HCPCS: 36415; 85025

== ENCOUNTER 2023-07-06 10:40 | Outpatient (CLI) | payer MEDICARE, SELFPAY ==
[2023-07-06 11:32] LABS: Anion Gap 6 mmol/L (4-12); Blood Urea Nitrogen 16 mg/dL (9-20); Calcium 8.9 mg/dL (8.4-10.2); Carbon Dioxide 24 mmol/L (22-30); Chloride 108 mmol/L (98-107); Cholesterol 91 mg/dL (0-200); Estimated Glomerular Filt Rate > 60; Glucose 112 mg/dL (65-110); HDL Direct 36 mg/dL; Potassium 5.2 mmol/L (3.4-5.0); Sodium 138 mmol/L (137-145); Triglycerides 84 mg/dL (<150)
[2023-07-06 11:43] LABS: LDL Cholesterol Direct 56 mg/dL
[2023-07-06 11:53] LABS: Creatinine Urine 97.1 mg/dL
[2023-07-06 11:57] LABS: MALB Creatinine Ratio 13.3 mg/g (0-30); Microalbumin Urine Random 12.9 mg/L (0-16.7)
== END 2023-07-06 10:41 | disposition home or self-care (01) ==
LOC: ANHLAB 10:45
PROVIDERS: PCP Family Medicine; Referring Provider Physician Assistant; Visit Provider Internal Medicine
DX: E11.9 Type 2 diabetes mellitus without complications (principal); Z95.2 Presence of prosthetic heart valve; E78.00 Pure hypercholesterolemia, unspecified; E11.65 Type 2 diabetes mellitus with hyperglycemia; E87.5 Hyperkalemia
CPT/HCPCS: 36415; 80048; 80061; 82043

== ENCOUNTER 2023-09-27 12:17 | Outpatient (CLI) | payer MEDICARE, SELFPAY ==
[2023-09-27 12:42] LABS: Hematocrit 37.9 % (42.0-52.0); Hemoglobin 10.5 g/dL (14.0-18.0); Mean Corpuscular HGB Conc 27.7 g/dl (32-36); Mean Corpuscular Hemoglobin 19.6 pg (26-34); Mean Corpuscular Volume 70.7 fl (80-100); Mean Platelet Volume 9.4 fl (7.4-10.4); Platelet Count Result 762 k/mm3 (150-375); Red Blood Count 5.36 M/mm3 (4.6-6.20); Red Cell Distribution Width 23.5 % (11.5-14.5); White Blood Count 13.4 K/mm3 (4.5-10.0)
[2023-09-27 12:53] LABS: Band Neutrophils Percent 3 % (0-6); Eosinophils Absolute Manual 0.13 K/mm3 (0.02-0.50); Eosinophils Percent Manual 1 % (0-4); Lymphocytes Absolute Manual 2.14 K/mm3 (1.1-4.5); Metamyelocytes Percent 1 %; Monocytes Absolute Manual 0.26 K/mm3 (0.1-0.90); Monocytes Percent Manual 2 % (3-9); Neutrophils Absolute Manual 10.72 K/mm3 (1.3-6.7); Neutrophils Percent Manual 77 % (46-73); Nucleated Red Blood Cells 6 %; Platelet Estimate Increased (Adequate); Schistocytes None Seen; Total Cells Counted 100
[2023-09-27 12:54] LABS: Anisocytosis 1+; Crenated RBC 1+; Microcytosis 1+ (NORMAL); Target Cells 1+
[2023-09-27 12:55] LABS: Poikilocytosis 2+
[2023-09-27 16:44] LABS: Iron 107 ug/dL (49-181)
[2023-09-27 16:45] LABS: Alanine Aminotransferase 20 U/L (6-50); Albumin Level 4.4 g/dL (3.5-5.1); Alkaline Phosphatase 96 U/L (38-126); Anion Gap 14 mmol/L (4-12); Aspartate Amino Transferase 30 U/L (17-59); Bilirubin,Total 0.6 mg/dL (0.2-1.3); Blood Urea Nitrogen 16 mg/dL (9-20); CRP < 0.5 mg/dL (<1.0); Carbon Dioxide 24 mmol/L (22-30); Chloride 104 mmol/L (98-107); Estimated Glomerular Filt Rate > 60; Glucose 171 mg/dL (65-110); Lactate Dehydrogenase 269 U/L (120-246); Potassium 4.4 mmol/L (3.4-5.0); Sodium 142 mmol/L (137-145)
[2023-09-27 16:54] LABS: Percent Iron Saturation 24 % (20-50)
[2023-09-27 17:03] LABS: Erythrocyte Sedimentation Rate 5 mm/hr (0-20)
[2023-09-27 17:53] LABS: Folic Acid 7.9 ng/mL (2.76->20); Vitamin B12 > 1000.0 pg/mL (239-931)
[2023-09-30 16:13] LABS: Methylmalonic Acid 163 nmol/L (69-390)
[2023-10-01 14:48] LABS: Soluble Transferrin Receptor 5.56 mg/L (0.76-1.76)
[2023-10-05 21:38] LABS: Block/Specimen ID 832767; JAK2 V617F Mutation NOT DETECTED (NOT DETECTED); Specimen Source Blood
== END 2023-09-27 12:18 | disposition home or self-care (01) ==
LOC: ANHLAB 12:19
PROVIDERS: Nurse Practitioner Family; PCP Family Medicine; Visit Provider Internal Medicine Hematology & Oncology
DX: D75.839 Thrombocytosis, unspecified (principal); D50.9 Iron deficiency anemia, unspecified
CPT/HCPCS: 36415; 80053; 81270; 82607; 82728; 82746; 83540; 83550; 83615; 83921; 84238; 85025; 85652; 86140

== ENCOUNTER 2024-01-12 11:51 | Outpatient (CLI) | payer MEDICARE, SELFPAY ==
[2024-01-12 12:10] LABS: Basophils Absolute Auto 0.1 K/mm3 (0.0-0.1); Basophils Percent Auto 1.1 % (0.2-1.2); Eosinophils Absolute Auto 0.7 K/mm3 (0-0.3); Hematocrit 51.7 % (42.0-52.0); Hemoglobin 16.5 g/dL (14.0-18.0); Immature Granulocyte Absolute 0.03 K/mm3 (0.00-0.031); Immature Granulocyte Percent A 0.3 % (0-0.5); Lymphocytes Absolute Auto 2.71 K/mm3 (0.9-3.2); Lymphocytes Percent Auto 26.3 % (18.3-44.2); Mean Corpuscular HGB Conc 31.9 g/dl (32-36); Mean Corpuscular Hemoglobin 28.4 pg (26-34); Mean Corpuscular Volume 89.1 fl (80-100); Mean Platelet Volume 10.3 fl (7.4-10.4); Monocytes Absolute Auto 1.1 K/mm3 (0.1-0.6); Monocytes Percent Auto 10.5 % (2.6-8.5); Neutrophils Absolute Auto 5.7 K/mm3 (1.3-6.7); Neutrophils Percent Auto 54.8 % (45.5-73.1); Platelet Count Result 307 k/mm3 (150-375); Red Cell Distribution Width 18.9 % (11.5-14.5); White Blood Count 10.3 K/mm3 (4.5-10.0)
[2024-01-12 16:33] LABS: Iron 132 ug/dL (49-181)
[2024-01-12 16:44] LABS: Percent Iron Saturation 40 % (20-50)
[2024-01-12 18:03] LABS: Alanine Aminotransferase 30 U/L (6-50); Albumin Level 4.3 g/dL (3.5-5.1); Alkaline Phosphatase 89 U/L (38-126); Anion Gap 10 mmol/L (4-12); Aspartate Amino Transferase 34 U/L (17-59); Bilirubin,Total 0.6 mg/dL (0.2-1.3); Blood Urea Nitrogen 16 mg/dL (9-20); Calcium 9.2 mg/dL (8.4-10.2); Carbon Dioxide 30 mmol/L (22-30); Chloride 100 mmol/L (98-107); Estimated Glomerular Filt Rate > 60; Glucose 138 mg/dL (65-110); Potassium 4.3 mmol/L (3.4-5.0); Sodium 140 mmol/L (137-145)
[2024-01-12 19:15] LABS: Folic Acid 15.8 ng/mL (2.76->20); Vitamin B12 > 1000.0 pg/mL (239-931)
== END 2024-01-12 11:52 | disposition home or self-care (01) ==
LOC: ANHLAB 11:54
PROVIDERS: PCP Family Medicine; Visit Provider Internal Medicine Hematology & Oncology
DX: D75.839 Thrombocytosis, unspecified (principal); D50.9 Iron deficiency anemia, unspecified
CPT/HCPCS: 36415; 80053; 82607; 82728; 82746; 83540; 83550; 85025

== ENCOUNTER 2024-05-03 11:58 | Outpatient (CLI) | payer MEDICARE, SELFPAY ==
[2024-05-03 12:10] LABS: Basophils Absolute Auto 0.1 K/mm3 (0.0-0.1); Basophils Percent Auto 0.9 % (0.2-1.2); Eosinophils Absolute Auto 0.7 K/mm3 (0-0.3); Hematocrit 48.9 % (42.0-52.0); Hemoglobin 16.2 g/dL (14.0-18.0); Immature Granulocyte Absolute 0.09 K/mm3 (0.00-0.031); Immature Granulocyte Percent A 0.8 % (0-0.5); Lymphocytes Percent Auto 23.3 % (18.3-44.2); Mean Corpuscular HGB Conc 33.1 g/dl (32-36); Mean Corpuscular Hemoglobin 31.6 pg (26-34); Mean Corpuscular Volume 95.3 fl (80-100); Mean Platelet Volume 10.3 fl (7.4-10.4); Monocytes Percent Auto 8.3 % (2.6-8.5); Neutrophils Absolute Auto 7.1 K/mm3 (1.3-6.7); Neutrophils Percent Auto 60.7 % (45.5-73.1); Nucleated Red Blood Cells Perc 0.2 % (0.0-0.2); Platelet Count Result 289 k/mm3 (150-375); Red Blood Count 5.13 M/mm3 (4.6-6.20); Red Cell Distribution Width 13.5 % (11.5-14.5); White Blood Count 11.6 K/mm3 (4.5-10.0)
--- OUTSIDE RECORDS SUMMARY | 2024-05-03 13:26 | XMS_ITS | Encounter Summary ---
Author Organization [facility] Address [address] [place] [address] Phone Care Team Providers Care Journey Lineman Name Role Phone Miles Emerson MD Primary Care Provider Encounter Details Date Type Department Care Team (Late st Contact Info) Description 09/25/2019 Orders Only [facility] Scanning, Provider Social History Tobacco Use Types Packs/Day Years Used Date Smoking Tobacco: Former Cigarettes Q uit: 09/07/1970 Smokeless Tobacco: Never Alcohol Use Standard Drinks/Week Comments Yes 1 (1 standard drink = 0.6 oz pur e alcohol) ONE MONTHLY Sex and Gender Information Value Date Recorded Sex Assigned at Not on file 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 Gender Identity Not on file Sexual Orientation Not on file documented as of this encounter Plan of Treatment Not on file documented as of this encounter Procedures Procedure Name Priority Date/Time Associated Diagnosis Comments SCAN - RADIOLOGY/IMAGING 09/25/2019 documented in this encounter Results * SCAN - RADIOLOGY/IMAGING (09/25/2019) Anatomical Region Laterality Modality Other us Provider Scanning Final Result documented in this encounter Visit Diagnoses Not on filedocumented in this encounter Care Teams Journey Lineman Relationship Specialty Start Date End Date Miles Emerson MD [address] [place] [address] PCP - General 05/28/16 documented as of this encounter
--- OUTSIDE RECORDS SUMMARY | 2024-05-03 13:26 | XMS_ITS | Clinical Summary ---
Author Organization [facility] Address [address] [place] [id number] Care Team Providers Care Dog Handler Or Trainer Name Role Phone Unavailable Primary Care Provider Unavailabl e Social History Tobacco Use Types Packs/Day Years Used Date Smoking Tobacco: Never Assessed Sex and Gender Information Value Date Recorded Sex Assigned at Not on file Legal Sex Male 6:24 PM CDT Gender Identity Not on file Sexual Orientation Not on file Plan of Treatment Health Maintenance Due Date Last Done Comments Colorectal Cancer Screening Colonoscopy (10 Years) 1948 Hepatitis C 1966 DTaP, Tdap and Td Vaccines ( 1 - Tdap) 10/25/1967 Zoster Vaccines (1 of 2) 1998 Pneumococcal Vaccine: 65+ Ye ars (1 of 1 - PCV) 2013 RSV Immunization or 60+ Years (1 - 1-dose 75+ series) 10/25/2023 COVID-19 Vaccine (2023-2 5 season) 2023 Influenza Adult (#1) 2023 Meningococcal B Vaccine Aged Out No l onger eligible based on patient's age to complete this topic Meningococcal Vaccine Aged Out No charley lory eligible based on patient's age to complete this topic RSV Immunizations Under 20 Months Aged Out No longer eligible based on patient's age to complete this topic
--- OUTSIDE RECORDS SUMMARY | 2024-05-03 13:26 | XMS_ITS | Clinical Summary ---
Author Organization [facility] Address [address] [place] [address] Care Team Providers Care Hoister Name Role Phone Miles Emerson MD Primary Care Provider [phone] Allergies No known active allergies Medications metFORMIN (GLUCOPHAGE) 1,000 mg tablet Take 1,000 mg by mouth 2 times daily with meals. Active empagliflozin (Jardiance) 25 mg tablet Take 25 mg by mouth daily in the morning. Active LOSARTAN POTASSIUM, BULK, MISC Take 50 mg by mouth daily. Active insulin aspart (NovoLOG) 100 unit/mL injection Inject 10 Units by subcutaneous injection 3 times daily with meals. Active insulin glargine (LANTUS) 100 unit/mL injection Inject 22 Units by subcutaneous injection daily at bedtime. Active atorvastatin (LIPITOR) 80 mg tablet Take 80 mg by mouth daily. Active ezetimibe (ZETIA) 10 mg tablet Take 10 mg by mouth daily. Active apixaban (Eliquis) 5 mg tablet Take 5 mg by mouth 2 times daily. Active metoprolol tartrate (LOPRESSOR) 100 mg tablet Take 100 mg by mouth 2 times daily. Active metoprolol tartrate (LOPRESSOR) 50 mg tablet Take 50 mg by mouth 2 times daily. Active ferrous sulfate 325 mg (65 mg iron) tablet Take 325 mg by mouth daily. Active sertraline (ZOLOFT) 25 mg tablet Take 25 mg by mouth daily. Active aspirin (ECOTRIN EC) 81 mg Tablet, Delayed Release (E.C.) Take 81 mg by mouth daily. Active multivitamin (DAILY-KHUSHBU) tablet Take 1 Tablet by mouth daily. Active cyanocobalamin (VITAMIN B-12) 100 mcg tablet Take 100 mcg by mouth daily. Active calcium carb/vitamin D3/vit K1 (CALCIUM-VITAMI N D3-VITAMIN K ORAL) Take 2,000 mg by mouth daily. Active docusate sodium (COLACE) 50 mg capsule Take 50 mg by mouth 2 times daily. Active hydroCHLOROthia zide 12.5 mg tablet Take 12.5 mg by mouth daily. Active Active Problems No known active problems Encounters Date Type Department Care Team Description 04/24/2024 External Device Data [facility] ABSTRACTION Provider, Abstract 03/21/2024 External Device Data [facility] ABSTRACTION Provider, Abstract from Last 3 Months Family History Medical History Relation Name Comments Heart Disease Brother 1 Prostate Cancer Brother 1 Heart Disease Brother 2 Heart Disease Brother 3 Diabetes Brother 4 Heart Disease Brother 4 Diabetes Child 1 No Known Problems Child 2 Diabetes Child 3 Heart Disease Child 3 No Known Problems Child 4 Heart Disease Father Diabetes Mother Heart Disease Mother No Known Problems Sister 1 No Known Problems Sister 2 Relation Name Status Comments Brother 1 Brother 2 Brother 3 Brother 4 Alive Child 1 Alive Child 2 Alive Child 3 Alive Child 4 Alive Father Mother Sister 1 Alive Sister 2 Alive Social History Tobacco Use Types Packs/Day Years Used Date Smoking Tobacco: Former Cigarettes 0.5 1 0 09/27/1967 - 09/26/1968 Smokeless Tobacco: Never Tobacco Cessation:Counseling Given: Not Answered Alcohol Use Standard Drinks/Week Comments Yes 0 (1 standard drink = 0.6 oz pur e alcohol) Socially Sex and Gender Information Value Date Recorded Sex Assigned at Not on file Legal Sex Male 2:23 PM CDT Gender Identity Not on file Sexual Orientation Not on file Last Filed Vital Signs Vital Sign Reading Time Taken Comments Blood Pressure 124/70 01/13/2024 9:03 AM COMMERCIAL SALES MANAGER Pulse 80 01/13/2024 9:01 AM COMMERCIAL SALES MANAGER Temperature 36.3 C (97.3 F) 01/13/2024 9:01 AM COMMERCIAL SALES MANAGER Respiratory Rate 17 01/13/2024 9:01 AM COMMERCIAL SALES MANAGER Oxygen Saturation 93% 01/13/2024 9:01 AM COMMERCIAL SALES MANAGER Inhaled Oxygen Concentration - - Weight 97.6 kg (215 lb 3.2 oz) 01/13/2024 9:01 A M COMMERCIAL SALES MANAGER Height 175.3 cm (5' 9 ) 09/27/2023 11:44 AM CDT Body Mass Index 31.78 09/27/2023 11:44 AM CDT Plan of Treatment Upcoming Encounters Date Type Department Care Team (Late st Contact Info) Description 05/16/2024 10:15 AM CDT Office Visit [facility] - [place] [address] [place] [address] John Perla MD [address] [place] [address] Health Maintenance Due Date Last Done Comments DIABETES ANNUAL FOOT EXAM 1966 DIABETES ANNUAL RETINAL EXAM 1966 DIABETES MICROALBUMIN ANNUAL SCREEN 1966 LDL CHOLESTEROL ANNUAL 1966 DTAP/TDAP/TD VACCINES (1 - Tdap) 10/25/1967 COLORECTAL SCREENING 1993 Colorectal Cancer Screening 1993 FIT-DNA Q 3 years 1993 FIT/FOBT Q 1 year 1993 Flex Sig/CT Colonography Q 5 years 1993 ZOSTER VACCINE (1 of 2) 1998 Abdominal Aortic Aneurysm (AAA) Screening 2013 DIABETES HBA1C Q 6 MONTHS 04/29/2020 10/31/2019 PNEUMOCOCCAL VACCINE 50+ YEARS (2 of 2 - PCV) 11/26/19 21 11/26/2019 INFLUENZA VACCINE (#1) 2023 RSV VACCINE (60+ or ) (1 - 1-dose 75+ series) 10/25/2023 Medicare Advantage ([place]) Prev entative Visit/Annual Wellness Visit 02/29/2024 Insurance AETNA PPO [facility] Care Teams Hoister Relationship Specialty Start Date End Date Miles Emerson MD [address] [facility] [address] [place] [address] PCP - General Family Practice 09/21/23
--- OUTSIDE RECORDS SUMMARY | 2024-05-03 13:26 | XMS_ITS | Referral Summary ---
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 (Primary Dx); S/P CABG x 2; S/P TAVR (transcatheter aortic valve replacement); Sinus node dysfunction (CMS/HCC) (HCC) [I49.5]; Cardiac pacemaker in situ [Z95.0]; Atrial fibrillation with controlled ventricular rate (HCC); Chronic anticoagulation 03/07/2024 Orders Only [facility] Cardiology [address] [place] [address] [place] [phone] En Hagen MD Cardiac pacemaker in situ (Primary Dx); Sinus node dysfunction (HCC); Persistent atrial fibrillation (HCC) 03/07/2024 10:30 AM TOOL AND DIE MAKER/DESIGNER Ancillary Procedure [facility]iology [address] [place] [address] [address] [place] [address] Cardiac pacemaker in situ (Primary Dx); PAF (paroxysmal atrial fibrillation) (HCC); Syncope and collapse; SSS (sick sinus syndrome) (HCC) from Last 3 Months Allergies No known active allergies Medications aspirin (ASPIR-81) 81 mg tablet take 1 tablet by oral route every day 0 0 016 Active atorvastatin (LIPITOR) 80 mg tablet Take 1 tablet (80 mg total) by mouth nightly Active JARDIANCE 25 mg tabletIndications: type 2 diabetes mellitus Take 1 tablet (25 mg total) by mouth every morning 2 Active multivitamin capsule Take 1 capsule by mouth daily Active cyanocobalamin, vitamin B-12, 1,000 mcg capsule Take by mouth daily Active cholecalciferol (VITAMIN D-3) 2000 unit capsule Take 1 capsule (2,000 Units total) by mouth daily Active docusate sodium (COLACE ORAL) Take by mouth 4 (four) times a week Take on Active sertraline (ZOLOFT) 25 mg tablet Take 1 tablet (25 mg total) by mouth daily Active Estates[employer].comTouch Verio test strips strip USE DIRECTED TO CHECK BLOOD SUGAR 4 TIMES A DAY Active [employer]Touch Verio Flex meter misc USE DIRECTED TO TEST FASTING BLOOD GLUCOSE EVERY MORNING Active metFORMIN XR (GLUCOPHAGE XR) 500 mg 24 hr tablet Take 2 tablets (1,000 mg total) by mouth 2 (two) times a day Active LANTUS 100 unit/mL (3 mL) pen for injection INJECT 20 UNITS SUBCUTANEOUSLY EVERY EVENING Active insulin glargine,hum.rec.a nlog (LANTUS SOLOSTAR U-100 INSULIN SUBQ) 023 Active losartan (COZAAR) 50 mg tabletIndications: Essential hypertension,Mixed diabetic hyperlipidemia associated with type 2 diabetes mellitus (HCC) Take 1 tablet (50 mg total) by mouth daily 90 tablet 3 024 Active metoprolol XL (TOPROL-XL) 50 mg extended release tablet TAKE 1 TABLET BY MOUTH ALONG WITH YOUR 100 MG TABLET RX TO EQUAL 150MG DAILY. 90 tablet 3 024 Active ferrous sulfate 325 mg (65 mg of elemental iron) tablet Take 1 tablet (325 mg total) by mouth daily Active hydroCHLOROthiazid e 12.5 mg tablet Take 1 tablet (12.5 mg total) by mouth daily 024 Active Eliquis 5 mg tablet TAKE 1 TABLET BY MOUTH TWICE A DAY 60 tablet 11 024 Active ezetimibe (ZETIA) 10 mg tabletIndications: Multiple-type hyperlipidemia,Cor onary arteriosclerosis in chinik artery TAKE 1 TABLET BY MOUTH EVERY DAY 90 tablet 025 Active metoprolol XL (TOPROL-XL) 100 mg 24 hr tablet TAKE 1 TABLET (100 MG TOTAL) BY MOUTH DAILY TAKE 1 TABLET BY MOUTH ALONG WITH YOUR 50 MG TABLET RX TO EQUAL 150MG DAILY. 90 tablet 1 025 Active NovoLOG 100 unit/mL (3 mL) pen for injection Inject 10 Units under the skin nightly 022 04/25 Discontinued( Patient Reported) ezetimibe (ZETIA) 10 mg tabletIndications: Multiple-type hyperlipidemia,Cor onary arteriosclerosis in chinik artery TAKE 1 TABLET BY MOUTH EVERY DAY 90 tablet 2 024 04/06 Discontinued metoprolol XL (TOPROL-XL) 100 mg 24 hr tablet TAKE 1 TABLET (100 MG TOTAL) BY MOUTH DAILY TAKE 1 TABLET BY MOUTH ALONG WITH YOUR 50 MG TABLET RX TO EQUAL 150MG DAILY. 90 tablet 1 024 04/06 Discontinued Active Problems Problem Noted Date Diagnosed Date CKD (chronic kidney disease) stage 3, GFR 30-59 ml/min 01/25/2023 Cardiac pacemaker in situ 12/21/2022 Overview (12/22/2022): Biotronik Edora Single Pacemaker. Dx; Sinus Node Dysfunction, PAF, Syncope, Pauses. DOI 12/13/2022-Pepito. Biotronik remote. PAF (paroxysmal atrial fibrillation) 07/20/2022 Chronic anticoagulation 07/20/2022 On amiodarone therapy 07/20/2022 S/P TAVR (transcatheter aortic valve replacement ) 01/28/2022 CAD S/P percutaneous coronary angioplasty 2021 History of splenectomy 12/17/2021 History of partial pancreatectomy 12/17/2021 Mixed diabetic hyperlipidemi a associated with type 2 diabetes mellitus 07/08/2021 Primary neuroendocrine tumor of pancreas 020 Overview (10/25/2019): Added automatically from request for surgery [id number] Lesion of pancreas 09/26/2019 Overview (09/26/2019): Added automatically from request for surgery [id number] APC (atrial premature contractions) 09/20/2016 Assessment & Plan (09/20/2016 5:20 PM CDT): Irregular heartbeat heard on exam EKG shows NSR w/ APCs, RBBB, LAD Check BMP, Mag level, TSH Coronary arteriosclerosis in chinik artery 03/05 Overview (06/03/2016): 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 H/O Left main dz; unfortunately the CX could not be bypassed, just the Om1. Had occ angina, suspect fr fr unbypassed Cx, none recently on med tx.. Stable. OK to DC Plavix 1 yr after CABG, in Sep. Left carotid bruit 03/05/2016 Overview (06/03/2016): Bilateral carotid bruits Assessment & Plan (09/20/2016 5:17 PM CDT): C US August 2015 = < 50% stenosis bilat. Obstructive sleep apnea syndrome 03/05/2016 Overview (06/03/2016): ARNULFO (obstructive sleep apnea) Assessment & Plan (09/20/2016 5:18 PM CDT): Intolerant of CPAP. Nonrheumatic aortic valve stenosis 12/12/2015 Overview (06/03/2016): Nonrheumatic aortic (valve) stenosis Assessment & Plan (09/20/2016 5:15 PM CDT): only mild by 2015 Echo Will need occ re-eval. For progression. Hx of CABG 12/12/2015 Overview (06/03/2016): Hx of CABG Accelerated atrioventricular junctional rhythm 0 09/23/2015 Overview (06/02/2016): Accelerated junctional rhythm Controlled type 2 diabetes mellitus without comp lication 09/23/2015 Overview (06/03/2016): Type 2 diabetes mellitus without complication, without long-term current use of insulin Hypertension associated with diabetes 09/23/2015 Overview (06/03/2016): Essential hypertension Assessment & Plan (09/20/2016 5:17 PM CDT): Hypertension is controlled. 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 POC lipids today : Total chol 135, LDL 72, TG 178, gglu 190 Adequate control. Chronic coronary artery disease 10/09/2015 04/17/2018 Heart murmur 09/23/2015 09/20/2016 Overview (06/02/2016): Heart murmur Dyspnea on exertion 09/23/2015 09/21/19 17 Overview (06/02/2016): HOFFMAN (dyspnea on exertion) Family history of cardiovascular disease 09/23/2015 09/20/2016 Overview (06/02/2016): Family history of ischemic heart disease and other diseases of the circulatory system Chest pain on exertion 09/23/201509/20 Overview (06/03/2016): Exertional chest pain Hyperlipidemia 09/23/2015 04/17/2018 Overview (06/04/2016): Hyperlipidemia, unspecified Immunizations Immunization Administration Dates Next Due Hib (PRP-T) 11/26/2019 Meningococcal B, OMV (Bexsero) 11/26/2019 Meningococcal Conjugate (Menveo) 11/26/2019 Pneumococcal Polysaccharide PPV23 11/26/2019 Social History Tobacco Use Types Packs/Day Years Used Date Smoking Tobacco: Former Cigarettes 0.5 1.3 0 03/17/1967 - 07/17/1968 Cigars Smokeless Tobacco: Never Alcohol Use Standard Drinks/Week Comments Yes 1 (1 standard drink = 0.6 oz pur e alcohol) ONE MONTHLY AUDIT-C Answer Date Recorded Q1: How often do you have a drink containing alc ohol? Monthly or less 04/29/2022 Q2: How many drinks containi ng alcohol do you have on a typical day when you are drinking? 1 or 2 04/29/2022 Q3: How often do you have si x or more drinks on one occasion? Never 04/29/2022 Personal Safety Answer Date Recorded Getting School Help Needed Denies 02/09 Sex and Gender Information Value Date Recorded Sex Assigned at Not on file Legal Sex Male 9:11 PM TOOL AND DIE MAKER/DESIGNER Gender Identity Not on file Sexual Orientation Not on file Last Filed Vital Signs Vital Sign Reading Time Taken Comments Blood Pressure 100/62 04/25/2024 10:04 AM TOOL AND DIE MAKER/DESIGNER Pulse 51 04/25/2024 10:04 AM TOOL AND DIE MAKER/DESIGNER Temperature 36.9 C (98.5 F) 04/29/2022 10:08 AM TOOL AND DIE MAKER/DESIGNER Respiratory Rate 96 11/04/2022 10:44 AM CDT Oxygen Saturation 97% 04/25/2024 10:04 AM TOOL AND DIE MAKER/DESIGNER Inhaled Oxygen Concentration - - Weight 96.6 kg (213 lb) 04/25/2024 10:04 AM TOOL AND DIE MAKER/DESIGNER Height 175.3 cm (5' 9 ) 04/25/2024 10:04 AM TOOL AND DIE MAKER/DESIGNER Body Mass Index 31.45 04/25/2024 10:04 AM TOOL AND DIE MAKER/DESIGNER Plan of Treatment Not on file Medical Devices Implanted Type Area Pre Algebra Teacher Device Identifier Shelf Expiration Date Model / Serial / Lot Giftxoxo Chase Synergy Xd Monorail 3.5mm 16mm 144cm Delivery System 1 Access [id number] - [id number] Implanted:Qty: 1 on 12/25/2021 by En Hagen MD at [facility] [employer] Chase 10/20/2023 [id number] / / [id number] Access Closure Inc Mynx Control 6-7fr 2 Mode Balloon Catheter Sealant Lock Syringe [id number] - [id number] Implanted:Qty: 1 on 12/25/2021 by En Hagen MD at [facility] Access [employer]osure Inc 10/29/2023 [id number] / / [id number] Mills Lifesciences Benjamin 3 Commander Mills 26mm Transcatheter Ultra Low Profile [id number] - [id number] - [id number] Implanted:Qty: 1 on 01/28/2022 by En Hagen MD at [facility] [employer] 09/22/2024 [id number] / [id number] / Mcmahon Vascular Device Clsr Perclose Prostyle Sut-Mediatd Closure-Repair Sys [id number] - [id number] Implanted:Qty: 1 on 01/28/2022 by En Hagen MD at [facility] [employer] 10/29/2023 [id number] / / [id number] TerKav[employer] Medical Chase Angio-Seal Vip 6fr Closere Device [id number] - [id number] Implanted:Qty: 1 on 01/28/2022 by En Hagen MD at [facility] [employer] 10/28/2022 [id number] / / [id number] Procedures Procedure Name Priority Date/Time Associated Diagnosis Comments ELECTROCARDIOGRAM REPORT Routine 04/25/2024 Atrial fibrillation with controlled ventricular rate (HCC) DEVICE CHECK - IN OFFICE Routine 03/07/2024 10:17 AM TOOL AND DIE MAKER/DESIGNER PAF (paroxysmal atrial fibrillation) (HCC) Syncope and collapse POCT LIPID PANEL Routine 10/13/2023 11:05 AM CDT 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 BASIC METABOLIC PANEL Routine 04/04/2023 10:35 AM TOOL AND DIE MAKER/DESIGNER Essential hypertension Mixed diabetic hyperlipidemia associated with type 2 diabetes mellitus (HCC) CT ABDOMEN PELVIS W WO CONTRAST Schedule Routine, Read Routine (OP Routine) 12/17/2021 11:03 AM CDT Primary neuroendocrine tumor of pancreas (HCC) HEMOGLOBIN A1C Routine 10/31/2019 10:17 AM CDT Preop examination from Last 3 Months or Most Recently Relevant to Health Maintenance Results * Electrocardiogram Report (04/25/2024) 04/25/2024 En Hagen MD ECG ORDERABLES Final Result * DEVICE CHECK - IN OFFICE (03/07/2024 10:17 AM TOOL AND DIE MAKER/DESIGNER) Anatomical Region Laterality Modality Other Narrative 03/08/2024 1:01 PM TOOL AND DIE MAKER/DESIGNER Biotronik Edora Single Pacemaker. Dx; Sinus Node Dysfunction, PAF, Syncope, Pauses. DOI 12/13/2022-Pepito. Biotronik remote. Supervising MD: Dr Baxter. Left pectoral incision well approximated. No redness, drainage, or edema noted. Office VVI Pacemaker interrogation demonstrated appropriate device function. Appropriate lead measurements noted. Battery function-Ok, 9.0 years 4 months remaining battery longevity to ROYAL. Presenting rhythm: Vsensed, irregular-Afib. V-rate 82 bpm. VPaced-19%. No Ventricular high rate episodes noted. Medications; includes Eliquis and Toprol XL. No programming changes made to device settings. See scanned report. Office pacemaker f/u 07/03/2025. Biotronik remote f/u 06/12/2024. Zari Wayne, RN Shahbaz Beyer MD [facility] PROC EDURES Final Result * POCT lipid panel (10/13/2023 11:05 AM CDT) Cholesterol, POC 100 mg/dL HDL, POC 16 mg/dL Triglycerides, POC 86 mg/dL LDL Cholesterol POC 67 mg/dL Chol/HDL Ratio, POC - Non-HDL Cholesterol, POC - mg/dL Cholesterol Total, POC 100 mg/dL Capillary blood 10/13/2023 1 1:05 AM CDT Erin Babcock NP POINT OF CARE TEST ORDERA BLES Final Result * (ABNORMAL) Basic metabolic panel (04/04/2023 10:35 AM TOOL AND DIE MAKER/DESIGNER) Pathologist [facility] Glucose 102(H) 70 - 99 mg/dL [facility] - 01 BUN 18 8 - 27 mg/dL [facility] - 01 Creatinine, Serum 0.91 0.76 - 1.27 mg/dL [facility] - 01 eGFR 88 >59 mL/min/1.7 3 [facility] - 01 BUN/creat ratio 20 10 - 24 [facility] - 01 Sodium 143 134 - 144 mmol/L [facility] - 01 Potassium, sr 5.1 3.5 - 5.2 mmol/L [facility] - 01 Chloride 107(H) 96 - 106 mmol/L [facility] - 01 CO2 21 20 - 29 mmol/L [facility] - 01 Calcium 8.9 8.6 - 10.2 mg/dL [facility] - 01 Blood 04/04/2023 10:3 5 AM TOOL AND DIE MAKER/DESIGNER 04/04/2023 Narrative [facility] - 04/05/2023 1:06 AM TOOL AND DIE MAKER/DESIGNER Performed at: 01 - [address] [id number] All Terrain Vehicle Technician: Joe Donaldson PhD, Phone: [phone] Haley Orozco MD LAB BLOOD ORDERABLES Final Result [facility] - 01 * CT Abdomen Pelvis W WO Contrast (12/17/2021 11:03 AM CDT) Anatomical Region Laterality Modality Body N/A Computed Tomogra phy 12/17/2021 11:2 9 AM CDT Impressions 12/17/2021 11:29 AM CDT 1. No change in size of the fluid collection abutting the pancreatic tail resection, possibly a pseudocyst. 2. No evidence of recurrent or metastatic disease in the abdomen or pelvis. Electronically signed by: Russ Hein M.D. Narrative 12/17/2021 11:29 AM CDT EXAMINATION: Computed tomography of the abdomen and pelvis with and without intravenous contrast HISTORY: Pancreatic neuroendocrine tumor status post distal pancreatectomy and spleen TECHNIQUE: Transaxial computed tomographic images of the abdomen and pelvis were obtained with and without intravenous contrast according to the pancreatic protocol after the uneventful administration of 120 mL Opti-Ray 350 intravenous contrast. COMPARISON: 12/18/2020 FINDINGS: Lung bases are normal. No focal hepatic lesion. The gallbladder is normal. The bilateral adrenal glands are normal. Subcentimeter low-attenuation inferior pole right renal lesion is unchanged from prior and likely represents a renal cyst. No hydronephrosis. Postsurgical changes from distal pancreatectomy and splenectomy. No change in size of the fluid collection adjacent to the suture margin at the pancreatic tail. Urinary bladder is normal. Prostatomegaly. Colonic diverticulosis without evidence of acute diverticulitis. The appendix is normal. Severe calcified atherosclerotic plaque on the infrarenal abdominal aorta. No AAA. No aggressive bone lesion. 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 COMPARISON: 12/18/2020 FINDINGS: Lung bases are normal. No focal hepatic lesion. The gallbladder is normal. The bilateral adrenal glands are normal. Subcentimeter low-attenuation inferior pole right renal lesion is unchanged from prior and likely represents a renal cyst. No hydronephrosis. Postsurgical changes from distal pancreatectomy and splenectomy. No change in size of the fluid collection adjacent to the suture margin at the pancreatic tail. Urinary bladder is normal. Prostatomegaly. Colonic diverticulosis without evidence of acute diverticulitis. The appendix is normal. Severe calcified atherosclerotic plaque on the infrarenal abdominal aorta. No AAA. No aggressive bone lesion. IMPRESSION: 1. No change in size of the fluid collection abutting the pancreatic tail resection, possibly a pseudocyst. 2. No evidence of recurrent or metastatic disease in the abdomen or pelvis. Electronically signed by: Russ Hein M.D. us Sindy Pennington MANAGER FARM IMG CT PROCEDURES Final Res ult * (ABNORMAL) Hemoglobin A1c (10/31/2019 10:17 AM CDT) Hgb A1C 7.8(H) 4.0 - 5.6 % [facility] Estimated Average Glucose 177 mg/dL [facility] Comment: The ADA recommends reporting an estimated Average Glucose (eAG) with all Hemoglobin A1c results using the equation derived from a study of 507 normal and diabetic adults. Minority populations were underrepresented and children were not included. (Diabetes Care 31:2122-6985, 2008). The eAG is not equivalent to a fasting glucose. Blood specimen (specimen) 10/31/2019 10:17 AM CDT 10/31/2019 11:51 AM CDT us Gordo Varela MD LAB BLOOD ORDERABLES Brenda l Result [facility] Department [place] [address] from Last 3 Months or Most Recently Relevant to Health Maintenance Insurance [facility] AETNA MCR ADVANTRA Advance Directives For more information, please contact: [phone] * Full Code (Latest Code Status on File) Date Activated Date Inactivated Comments 11/22/2019 8:37 PM 11/26/2019 7:46 PM * Full Code Date Activated Date Inactivated Comments 10/01/2019 12:28 PM 10/01/2019 8:04 PM Care Teams Draw Machine Operator Relationship Specialty Start Date End Date Miles Emerson MD [address] [facility] [address] [place] [address] PCP - General 05/28/16
--- OUTSIDE RECORDS SUMMARY | 2024-05-03 13:26 | XMS_ITS | Clinical Summary ---
Author Organization [facility] [address] Address [address] [place] [address] Care Team Providers Care Developmental Psychologist Name Role Phone Miles Emerson MD Primary Care Provider Allergies No known active allergies Medications aspirin (ASPIR-81) 81 mg tablet take 1 tablet by oral route every day 0 0 016 Active atorvastatin (LIPITOR) 80 mg tablet Take 1 tablet (80 mg total) by mouth nightly Active JARDIANCE 25 mg tabletIndications: type 2 diabetes mellitus Take 1 tablet (25 mg total) by mouth every morning 2 019 Active multivitamin capsule Take 1 capsule by mouth daily Active cyanocobalamin, vitamin B-12, 1,000 mcg capsule Take by mouth daily Active cholecalciferol (VITAMIN D-3) 2000 unit capsule Take 1 capsule (2,000 Units total) by mouth daily Active docusate sodium (COLACE ORAL) Take by mouth 4 (four) times a week Take Active sertraline (ZOLOFT) 25 mg tablet Take 1 tablet (25 mg total) by mouth daily 022 Active OneTouch Verio test strips strip USE DIRECTED TO CHECK BLOOD SUGAR 4 TIMES A DAY Active OneTouch Verio Flex meter misc USE DIRECTED TO TEST FASTING BLOOD GLUCOSE EVERY MORNING Active metFORMIN XR (GLUCOPHAGE XR) 500 mg 24 hr tablet Take 2 tablets (1,000 mg total) by mouth 2 (two) times a day 022 Active LANTUS 100 unit/mL (3 mL) pen for injection INJECT 20 UNITS SUBCUTANEOUSLY EVERY EVENING 023 Active insulin glargine,hum.rec.a nlog (LANTUS SOLOSTAR U-100 [...] tablet (325 mg total) by mouth daily 024 Active hydroCHLOROthiazid e 12.5 mg tablet Take 1 tablet (12.5 mg total) by mouth daily 024 Active Eliquis 5 mg tablet TAKE 1 TABLET BY MOUTH TWICE A DAY 60 tablet 11 024 Active ezetimibe (ZETIA) 10 mg tabletIndications: Multiple-type hyperlipidemia,Cor onary arteriosclerosis in [place] artery TAKE 1 TABLET BY MOUTH EVERY [...] mg tabletIndications: Multiple-type hyperlipidemia,Cor onary arteriosclerosis in [place] artery TAKE 1 TABLET BY MOUTH EVERY [...] Sinus Node Dysfunction, PAF, Syncope, Pauses. DOI 12/13/2022-Fleissner. Velazquezk remote. PAF (paroxysmal atrial fibrillation) 07/20/2022 Chronic anticoagulation 07/20/2022 On amiodarone therapy 07/20/2022 S/P TAVR (transcatheter aortic valve replacement ) 01/28/2022 CAD S/P percutaneous coronary angioplasty 2021 History of splenectomy 12/17/2021 History of partial pancreatectomy 12/17/2021 Mixed diabetic hyperlipidemi a associated with type 2 diabetes mellitus 07/08/2021 Primary neuroendocrine tumor of pancreas 020 Overview (10/25/2019): Added automatically from request for surgery [id number] Lesion of pancreas 09/26/2019 Overview (09/26/2019): Added automatically from request for surgery [id number] APC (atrial premature contractions) 09/20/2016 Assessment & Plan (09/20/2016 5:20 PM CDT): Irregular heartbeat heard on exam EKG shows NSR w/ APCs, RBBB, LAD Check BMP, Mag level, TSH Coronary arteriosclerosis in [place] artery 03/05 Overview (06/03/2016): Coronary artery disease of [place] artery of [place] heart with stable angina pectoris Assessment & [...] Hyperlipidemia 09/23/2015 04/17/2018 Overview (06/04/2016): Hyperlipidemia, unspecified Encounters Date Type Department Care Team Description 04/25/2024 10:00 AM GIS ANALYST DEVELOPER Office Visit [facility] Cardiology [address] [address] [place] [address] En Hagen MD Coronary artery disease of [place] artery of [place] heart with stable angina pectoris (Primary Dx); S/P CABG x 2; S/P TAVR (transcatheter aortic valve replacement); Sinus node dysfunction (CMS/HCC) ([facility]) [I49.5]; Cardiac pacemaker in situ [Z95.0]; Atrial fibrillation with controlled ventricular rate (HCC); Chronic anticoagulation 03/07/2024 10:30 AM GIS ANALYST DEVELOPER Ancillary Procedure [facility] Cardiology [address] [place] [address] Cardiac pacemaker in situ (Primary Dx); PAF (paroxysmal atrial fibrillation) ([facility]); Syncope and collapse; SSS (sick sinus syndrome) ([facility]) 03/07/2024 Orders Only [facility] Cardiology [facility] [facility] [address] [address] En Hagen MD Cardiac pacemaker in situ (Primary Dx); Sinus node dysfunction (HCC); Persistent atrial fibrillation (HCC) from Last 3 Months Immunizations Immunization Administration Dates Next Due Hib (PRP-T) 11/26/2019 Meningococcal B, OMV (Bexsero) 11/26/2019 Meningococcal Conjugate (Menveo) 11/26/2019 Pneumococcal Polysaccharide PPV23 11/26/2019 Surgical History Surgery Date Site/Laterality Comments CORONARY ARTERY BYPASS GRAFT 09/29/2015 left internal mammary artery to LAD, left radial artery harvest to obtuse marginal 1 TENDON REPAIR Right hand CYSTOSCOPY W/ LASER LITHOTRIPSY 04/28/1998 - 05/28/1998 UPPER ENDOSCOPIC ULTRASOUND W/ FNA 10/01/2019 VASECTOMY PANCREAS SURGERY 10/30/2019 - 11/28/2019 tail of pancrease removed SPLENECTOMY, TOTAL 10/30/2019 - 11/28/2019 done when tail of pancreas was removed. CARDIAC VALVE REPLACEMENT 01/28/2022 Medical History Medical History Date Comments Hx Other Medical Surgical repair tendon left hand; Comments: ELU 09/23/2015 - Hx Other Medical 2009 GI bleed second kathryn to esophagitis; Comments: ELU 09/23/2015 - Type 2 diabetes mellitus (HCC) Hypertension GERD (gastroesophageal reflux disease) Pancreatic lesion CAD (coronary artery disease) Sleep apnea Hyperlipidemia Former smoker quit 1970 Junctional rhythm intermittent, possibly 2/2 ischemia Nephrolithiasis Brice's palsy Pancreatic mass Aortic stenosis moderate per TTE 07/18/2019 Delayed emergence from general anesthesia Aortic valve disease Fatigue Non-rheumatic aortic stenosis Family History Medical History Relation Name Comments Prostate cancer Brother 3 Cancer, pros wade; Cause of : Cancer, prostate Other Brother 4 of heart d z in late 70's.; Cause of : of heart dz in late 70's. Heart attack Father Chadd Rodriguez Myocardial in farction; Cause of : Myocardial infarction Diabetes Mother Chadd Rodriguez Heart attack Mother Chadd Rodriguez Myocardial in farction; Cause of : Myocardial infarction Other Other Family history of Two other brothers had CABGs intheir 60's, now in their 70's.; Relation Name Status Comments Brother 1 Brother 2 Brother 3 Brother 4 Father Chadd Rodriguez (Age 85) Mother Chadd Rodriguez (Age 78) Other Social History Tobacco Use Types Packs/Day Years [...] on file Legal Sex Male 9:11 PM GIS ANALYST DEVELOPER Gender Identity Not on file Sexual Orientation Not on file Obstetrics History Last Filed Vital Signs Vital Sign Reading Time Taken Comments Blood Pressure 100/62 04/25/2024 10:04 AM GIS ANALYST DEVELOPER Pulse 51 04/25/2024 10:04 AM GIS ANALYST DEVELOPER Temperature 36.9 C (98.5 F) 04/29/2022 10:08 AM GIS ANALYST DEVELOPER Respiratory Rate 96 11/04/2022 10:44 AM CDT Oxygen Saturation 97% 04/25/2024 10:04 AM GIS ANALYST DEVELOPER Inhaled Oxygen Concentration - - Weight 96.6 kg (213 lb) 04/25/2024 10:04 AM GIS ANALYST DEVELOPER Height 175.3 cm (5' 9 ) 04/25/2024 10:04 AM GIS ANALYST DEVELOPER Body Mass Index 31.45 04/25/2024 10:04 AM GIS ANALYST DEVELOPER Plan of Treatment Health Maintenance Due Date Last Done Comments Albumin Creatinine Ratio, Urine 1948 Colon Cancer Screening-Colonoscopy 1948 Depression Screening 1948 Hepatitis C Screening 1948 Prostate Cancer Screening-PSA 1948 Dilated Eye Exam 1948 Foot Exam 1948 DTaP/Tdap/Td Vaccine (1 - Tdap) 10/25/1959 Hepatitis B Screening 1966 Zoster Vaccine (1 of 2) 1998 Well Visit 65+ 2013 Meningococcal B Vaccine (2 o f 5 - Increased Risk Bexsero 3-dose series) 12/24/2019 11/26/2019 Hemoglobin A1C 04/29/2020 10/31/2019 Pneumococcal vaccine 65+ (2 of 2 - PCV) 11/25/2020 11/26/2019 Fall Risk Assessment 01/29/2023 01/29/2022 Covid-19 Vaccine (5 - 2023-2 5 season) 2023 07/17/2021, 12/31/2020, 05/30/2020, Additional history exists Influenza Vaccine (#1) 2023 , 02/23/2021, 11/10/2016, Additional history exists eGFR 04/04/2024 04/04/2023, 06/0 02/2022, 04/26/2022, Additional history exists Lipid Panel 10/12/2024 10/13/2023, 05/0 04/2022, 07/08/2021, Additional history exists Abdominal Aortic Aneurysm (A AA) Screen Completed 12/17/2021, 12/18/2020, 06/12/2020 Medical Devices Implanted Type Area Java Software Device Identifier Shelf Expiration Date Model / Serial / Lot [employer] Karmen Synergy Xd Monorail 3.5mm 16mm 144cm Delivery System 1 Access [id number] - [id number] Implanted:Qty: 1 on 12/25/2021 by En Hagen MD at [facility] [employer] Karmen 10/20/2023 [id number] / / [id number] Access [employer] Mynx Control 6-7fr 2 Mode Balloon Catheter Sealant Lock Syringe [id number] - [id number] Implanted:Qty: 1 on 12/25/2021 by En Hagen MD at [facility] [employer] 10/29/2023 [id number] / / [id number] [employer] Benjamni 3 [place] 26mm Transcatheter Ultra Low Profile [id number] - [id number] - [id number] Implanted:Qty: 1 on 01/28/2022 by En Hagen MD at [facility] [employer] 09/22/2024 [id number] / [id number] / [employer] Device Clsr Perclose Prostyle Sut-Mediatd Closure-Repair Sys [id number] - [id number] Implanted:Qty: 1 on 01/28/2022 by En Hagen MD at [facility] [employer] 10/29/2023 [id number] / / [id number] Ru[employer] Teads Angio-Seal Vip 6fr Closere Device [id number] - [id number] Implanted:Qty: 1 on 01/28/2022 by En Hagen MD at [facility] [employer] 10/28/2022 [id number] / / [id number] Procedures Procedure Name Priority Date/Time Associated Diagnosis Comments ELECTROCARDIOGRAM REPORT Routine 04/25/2024 Atrial fibrillation with controlled ventricular rate (HCC) DEVICE CHECK - IN OFFICE Routine 03/07/2024 10:17 AM GIS ANALYST DEVELOPER PAF (paroxysmal atrial fibrillation) (HCC) Syncope and collapse POCT LIPID PANEL Routine 10/13/2023 11:05 AM CDT Coronary artery disease of [place] artery of [place] heart with stable angina pectoris BASIC METABOLIC PANEL Routine 04/04/2023 10:35 AM GIS ANALYST DEVELOPER Essential hypertension Mixed diabetic hyperlipidemia associated with [...] CHECK - IN OFFICE (03/07/2024 10:17 AM GIS ANALYST DEVELOPER) Anatomical Region Laterality Modality Other Narrative 03/08/2024 1:01 PM GIS ANALYST DEVELOPER Biotronik [place] Single Pacemaker. Dx; Sinus Node [...] f/u 07/03/2025. Biotronik remote f/u 06/12/2024. Zari Wayne RN Shahbaz Beyer MD [facility] [...] (ABNORMAL) Basic metabolic panel (04/04/2023 10:35 AM GIS ANALYST DEVELOPER) Glucose 102(H) 70 - 99 mg/dL [facility] [...] - 01 Blood 04/04/2023 10:3 5 AM GIS ANALYST DEVELOPER 04/04/2023 Narrative [facility] - 04/05/2023 1:06 AM GIS ANALYST DEVELOPER Performed at: 01 - Lab[address] [id number] Building Guard Deputy Sheriff: Joe Donaldson PhD, Phone: [phone] us Haley Orozco MD LAB BLOOD ORDERABLES Final Result [facility] - * CT Abdomen Pelvis W WO Contrast [...] pelvis. Electronically signed by: Russ Hein M.D. Sindy Pennington NP IMG CT PROCEDURES Final Res ult * (ABNORMAL) Hemoglobin A1c (10/31/2019 10:17 AM CDT) Hgb A1C 7.8(H) 4.0 - 5.6 % [facility] Estimated Average Glucose 177 mg/dL [facility] Comment: The ADA recommends reporting an estimated Average Glucose (eAG) with all Hemoglobin A1c results using the equation derived from a study of 507 normal and diabetic adults. Minority populations were underrepresented and children were not included. (Diabetes Care 31:5821-8631, 2008). The eAG is not equivalent to a fasting glucose. Blood specimen (specimen) 10/31/2019 10:17 AM CDT 10/31/2019 11:51 AM CDT us Gordo Varela MD LAB BLOOD ORDERABLES Brenda vamshi Result [facility] Department [place] [address] from Last 3 Months or Most Recently Relevant to Health Maintenance Insurance [facility] [facility] [employer] Advance Directives For more information, please contact: [phone] * Full Code (Latest Code Status on File) Date Activated Date Inactivated Comments 11/22/2019 8:37 PM 11/26/2019 7:46 PM * Full Code Date Activated Date Inactivated Comments 10/01/2019 12:28 PM 10/01/2019 8:04 PM Care Teams Developmental Psychologist Relationship Specialty Start Date End Date Miles Emerson MD [address] [facility] [address] [place] [address] PCP - General 05/28/16
[2024-05-03 16:29] LABS: Iron 128 ug/dL (49-181)
[2024-05-03 16:40] LABS: Percent Iron Saturation 40 % (20-50)
== END 2024-05-03 11:59 | disposition home or self-care (01) ==
LOC: ANHLAB 11:59
PROVIDERS: Visit Provider Internal Medicine Hematology & Oncology
DX: D50.9 Iron deficiency anemia, unspecified (principal)
CPT/HCPCS: 36415; 82728; 83540; 83550; 85025